=== PATIENT | female | born 1960 | race Caucasian/White ===

== ENCOUNTER → 2016-12-21 | Outpatient (REF) | payer MEDICARE, OTHER ==
[~2016-12-21] MED LIST: /GLIM2TA OR; /ONDA4TA OR; ACET-654 PO; ALPR1TAB3 OR; APIDINJ SC; BABY81CH OR; CARV3.12 PO; CIPR25SS OR; COLA50CA3 PO; DEPA500T OR; FLAG500T OR; FLAG500T PO; FURO20TA2 PO; HYDR7.5T38 PO; INSULANT SC; KEPP1000 PO; MECL12.5 OR; MEXI150C PO; MIDO5TAB PO; NITR0.4S SL; PERC7.5T12 PO; PERC7.5T8 PO; POTA20TA PO; SIMV80TA OR; TORS20TA2 PO; ULTR50TA PO; VICO5TAB OR; VITA500047 PO; ZOCO10TA PO; ZOLO100T OR; januvia PO; nitroglycerin TD; trazadone PO
[2016-12-21 11:19] LABS: BASO % 0.7 % (0.0-1.0); EOS # 0.3 K/mm3 (0.0-0.50); EOS % 4.9 % (0.0-3.0); LARGE UNSTAINED CELL # 0.2 K/mm3 (0.0-0.4); LARGE UNSTAINED CELL % 2.9 % (0.0-4.0); LYMPH # 2.2 K/mm3 (1.5-4.5); LYMPH % 34.8 % (24.0-44.0); MEAN CORPUSCULAR HEMOGLOBIN 28.8 pg (27.0-33.0); MEAN CORPUSCULAR HGB CONC 34.1 g/dl (32.0-36.5); MEAN CORPUSCULAR VOLUME 84.4 fl (80.0-96.0); MONO # 0.5 K/mm3 (0.0-0.8); MONO % 7.7 % (0.0-5.0); NEUTROPHILS # 2.9 K/mm3 (1.8-7.7); PLATELET COUNT, AUTOMATED 320 k/mm3 (150-450); RED CELL DISTRIBUTION WIDTH 12.8 % (11.5-14.5); WHITE BLOOD COUNT 5.9 K/mm3 (4.0-10.0)
[2016-12-21 12:09] LABS: ALBUMIN 3.3 GM/DL (3.2-5.2); ALBUMIN/GLOBULIN RATIO 1.1 (1.00-1.93); BILIRUBIN,TOTAL 0.4 MG/DL (0.2-1.0); CALCIUM LEVEL 8.5 MG/DL (8.5-10.1); CREATININE FOR GFR 1.36 MG/DL (0.55-1.02); GLOMERULAR FILTRATION RATE 42.7 (>51); POTASSIUM SERUM 4.3 MEQ/L (3.5-5.1); TOTAL PROTEIN 6.3 GM/DL (6.4-8.2)
== END ==
LOC: M SFHCLERA 09:37
PROVIDERS: ATTEND Family Medicine
DX: I50.9 Heart failure, unspecified (principal); E11.9 Type 2 diabetes mellitus without complications; E55.9 Vitamin D deficiency, unspecified

== ENCOUNTER → 2017-03-02 | Outpatient (CLI) | payer MEDICARE, OTHER ==
[2017-03-02 11:31] LABS: MEAN CORPUSCULAR HEMOGLOBIN 28.6 pg (27.0-33.0); MEAN CORPUSCULAR HGB CONC 33.3 g/dl (32.0-36.5); MEAN CORPUSCULAR VOLUME 85.8 fl (80.0-96.0); RED CELL DISTRIBUTION WIDTH 13.5 % (11.5-14.5); WHITE BLOOD COUNT 5.6 K/mm3 (4.0-10.0)
[2017-03-02 11:53] LABS: CALCIUM LEVEL 9.6 MG/DL (8.5-10.1); CREATININE FOR GFR 1.41 MG/DL (0.55-1.02); GLOMERULAR FILTRATION RATE 40.9 (>51)
== END ==
LOC: M LRY 09:47
PROVIDERS: ATTEND Internal Medicine Cardiovascular Disease
DX: I42.9 Cardiomyopathy, unspecified (principal)

== ENCOUNTER → 2017-04-02 | Outpatient (REF) | payer MEDICARE, OTHER | LOC: M SFHCLERA 08:35 | PROVIDERS: ATTEND Family Medicine | DX: E11.9 Type 2 diabetes mellitus without complications (principal) ==

== ENCOUNTER → 2017-04-10 | Outpatient (CLI) | payer MEDICARE, BC, OTHER ==
--- NOTE | 2017-04-10 08:40 | REPMRS ---
Patient History The patient states she has not had a clinical breast exam in over a year. Patient is postmenopausal. Family history of colorectal cancer in sister at age 48. Digital Mammo Screening Bilat: April 10, 2017 - Exam #: [id number] Bilateral CC and MLO view(s) were taken. Technologist: Amanda Grayson, Technologist Prior study comparison: March 2009, digital bilateral screening mammo. FINDINGS: There are scattered fibroglandular densities. There has been no change in the appearance of the mammogram from the prior studies. There is a mild amount of residual fibroglandular tissue which is fairly symmetric. There is no interval development of dominant mass, architectural distortion, or clustered microcalcification suggestive of malignancy. ASSESSMENT: BI-RADS/ACR category 1 mammogram. Negative. Recommendation Routine screening mammogram in 1 year (for women over age 40). This mammogram was interpreted with the aid of an FDA-approved computer-aided dectection system. Electronically Signed By: Avni Burgos MD 04/10/17 0823
== END ==
LOC: M RAD 07:34
PROVIDERS: ATTEND Family Medicine
DX: Z12.31 Encounter for screening mammogram for malignant neoplasm of breast (principal); M79.89 Other specified soft tissue disorders; I10 Essential (primary) hypertension

== ENCOUNTER → 2017-04-12 | Outpatient (CLI) | payer MEDICARE ==
--- NOTE | 2017-04-12 12:15 | REP ---
LEFT LOWER EXTREMITY DOPPLER VENOUS ULTRASOUND: 04/12/2017. Comparison: None. Clinical history: Lower extremity swelling, evaluate for DVT. Technique: The deep venous system of the left lower extremity is evaluated with silva scale imaging, compression ultrasound, color imaging and duplex Doppler interrogation. Examination from the groin through the popliteal fossa into the proximal calf. Findings: There is full compressibility from the common femoral vein in the inguinal region through the popliteal vein. Color imaging confirms patency throughout the course of the deep venous system. There is respiratory variation and augmented flow at all levels. Impression: 1. No Doppler venous ultrasound evidence of DVT in the left lower extremity. Signed by Jeremy Castro MD 04/12/2017 12:06 P
== END ==
LOC: M LRY 08:58
PROVIDERS: ATTEND Family Medicine
DX: M79.89 Other specified soft tissue disorders (principal); I10 Essential (primary) hypertension

== ENCOUNTER → 2017-05-17 | Outpatient (CLI) | payer MEDICARE, BC ==
[~2017-05-17] MED LIST changes: -ALPR1TAB3 OR; +ALPR1TAB3 PO; +ATOR80TA59; +CALC1CAP31; +CART180C3; +DIVA500T9; +HYDR50CA2; +INSULADS INJ; +NOVOINJ3; +PANT40TA2; +PRAD75CA3; +PROP1TAB29; +TYLETAB14 PO
--- NOTE | 2017-05-17 16:09 | REP ---
Renal ultrasound: A comparison is 11/09/2015. The kidneys are normal size. The right kidney measures 11.3 x 5.2 x 4.17 cm. Left kidney measures 10.6 x 4.2 x 4.8 cm. There is no hydronephrosis, calculus or mass on the right on the left. There is a cyst at the lower pole left kidney today measuring 9.2 x 6.4 x 8.3 cm. On the prior study. This cyst measured 8.3 x 6.7 x 7.3 cm. This is a a Bosniak type 1 cysts. The bladder is incompletely distended and cannot be further evaluated. Impression: Bosniak type 1 cyst at the lower pole left kidney that has increased in size. Signed by Avni Frazier MD 05/17/2017 04:00 P
== END ==
LOC: M RAD 15:12
PROVIDERS: ATTEND Internal Medicine Nephrology
DX: N28.1 Cyst of kidney, acquired (principal)

== ENCOUNTER 2017-06-26 14:29 | Emergency (ER) | payer MEDICARE, BC, OTHER ==
[~2017-06-26] VITALS: Ht 175.3 cm; Wt 103.6 kg
[~2017-06-26 14:29] MED LIST changes: -ATOR80TA59; -CALC1CAP31; -CART180C3; -DIVA500T9; -HYDR50CA2; -INSULADS INJ; -NOVOINJ3; -PANT40TA2; -PRAD75CA3; -PROP1TAB29; -TYLETAB14 PO
[2017-06-26] MEDS ORDERED: INSULADS INJ (15:11)
[2017-06-26] MEDS ORDERED: PROP1TAB29 (15:14)
[2017-06-26] MEDS ORDERED: DIVA500T9 (15:14)
[2017-06-26] MEDS ORDERED: PANT40TA2 (15:14)
[2017-06-26] MEDS ORDERED: CART180C3 (15:14)
[2017-06-26] MEDS ORDERED: HYDR50CA2 (15:14)
[2017-06-26] MEDS ORDERED: CALC1CAP31 (15:14)
[2017-06-26] MEDS ORDERED: NOVOINJ3 (15:14)
[2017-06-26] MEDS ORDERED: ATOR80TA59 (15:14)
[2017-06-26] MEDS ORDERED: PRAD75CA3 (15:14)
[2017-06-26 17:00] VITALS: BP 122/71
[2017-06-26] MEDS ORDERED: TYLETAB14 PO (17:03)
--- NOTE | 2017-06-26 21:24 | ECGEPIP ---
Stationary ECG Study [facility] - ED Test Date: 2017-06-26 Pat Name: SHAD WASSERMAN Department: Room: - Gender: F Front Clerk: : 1960 Requested By: Paz Brown Order Number: [id number] Reading MD: Paz Brown Measurements Intervals [place] Rate: 69 P: 67 ND: 181 QRS: 5 QRSD: 100 T: 5 QT: 404 QTc: 435 Interpretive Statements SINUS RHYTHM SEPTAL MYOCARDIAL INFARCTION, PROBABLY OLD NSTTW ABNORMALITY DECREASED ECTOPY COMPARED 02/26/14 Electronically Signed On 06-26-2017 21:24:15 EDT by Paz Brown
== END 2017-06-26 17:05 | disposition home or self-care (01) ==
LOC: M ED 14:29
DX: G62.9 Polyneuropathy, unspecified (principal); Z87.891 Personal history of nicotine dependence

== ENCOUNTER → 2017-06-27 | Outpatient (CLI) | payer MEDICARE, BC, OTHER ==
[~2017-06-27] MED LIST changes: +ATOR80TA59; +CALC1CAP31; +CART180C3; +DIVA500T9; +HYDR50CA2; +INSULADS INJ; +NOVOINJ3; +PANT40TA2; +PRAD75CA3; +PROP1TAB29; +TYLETAB14 PO
--- NOTE | 2017-06-27 17:10 | REP ---
CERVICAL SPINE, SEVEN VIEWS: HISTORY: Neck pain. COMPARISON: 06/27/2013 There is no acute fracture or subluxation. The C3-4 through C7-T1 intervertebral discs are decreased in height consistent with disc degeneration. Osteophytes are present on C4-7. There is narrowing of the C3 through 6 neural foramina secondary to uncinate process hypertrophy. IMPRESSION:Degenerative change as described above. Signed by Chaim Badillo MD 06/28/2017 08:19 A
== END ==
LOC: M LRY 16:24
PROVIDERS: ATTEND Family Medicine
DX: M54.2 Cervicalgia (principal)
CPT/HCPCS: 72052; 80053; 85025; 85652; 86140; G0463

== ENCOUNTER → 2017-06-27 | Outpatient (REF) | payer MEDICARE, OTHER ==
[2017-06-27 20:34] LABS: BASO # 0.1 K/mm3 (0.0-0.2); EOS # 0.4 K/mm3 (0.0-0.50); EOS % 4.7 % (0.0-3.0); LARGE UNSTAINED CELL # 0.2 K/mm3 (0.0-0.4); LARGE UNSTAINED CELL % 2.6 % (0.0-4.0); LYMPH # 1.8 K/mm3 (1.5-4.5); LYMPH % 22.1 % (24.0-44.0); MEAN CORPUSCULAR HEMOGLOBIN 28.7 pg (27.0-33.0); MEAN CORPUSCULAR HGB CONC 33.9 g/dl (32.0-36.5); MEAN CORPUSCULAR VOLUME 84.7 fl (80.0-96.0); MONO # 0.5 K/mm3 (0.0-0.8); MONO % 5.5 % (0.0-5.0); NEUTROPHILS # 5.3 K/mm3 (1.8-7.7); NEUTROPHILS % 64.1 % (36.0-66.0); PLATELET COUNT, AUTOMATED 436 k/mm3 (150-450); RED CELL DISTRIBUTION WIDTH 12.4 % (11.5-14.5); WHITE BLOOD COUNT 8.3 K/mm3 (4.0-10.0)
[2017-06-27 21:10] LABS: ALBUMIN 3.2 GM/DL (3.2-5.2); ALBUMIN/GLOBULIN RATIO 0.86 (1.00-1.93); BILIRUBIN,TOTAL 0.4 MG/DL (0.2-1.0); CALCIUM LEVEL 9.3 MG/DL (8.5-10.1); CREATININE FOR GFR 1.09 MG/DL (0.55-1.02); GLOMERULAR FILTRATION RATE 55.1 (>51); POTASSIUM SERUM 5.1 MEQ/L (3.5-5.1); TOTAL PROTEIN 6.9 GM/DL (6.4-8.2)
[2017-06-27 21:20] LABS: ERYTHROCYTE SEDIMENTATION RATE 31 mm/hr (0-30)
== END ==
LOC: M SFHCLERA 16:04
PROVIDERS: ATTEND Family Medicine
DX: M54.2 Cervicalgia (principal); M79.622 Pain in left upper arm; M79.621 Pain in right upper arm

== ENCOUNTER → 2017-07-05 | Outpatient (REF) | payer MEDICARE, OTHER ==
[2017-07-05 13:44] LABS: ALBUMIN 3.1 GM/DL (3.2-5.2); ALBUMIN/GLOBULIN RATIO 0.79 (1.00-1.93); BILIRUBIN,TOTAL 0.4 MG/DL (0.2-1.0); CALCIUM LEVEL 9.4 MG/DL (8.5-10.1); CREATININE FOR GFR 1.33 MG/DL (0.55-1.02); GLOMERULAR FILTRATION RATE 43.6 (>51); POTASSIUM SERUM 4.7 MEQ/L (3.5-5.1)
[2017-07-05 14:00] LABS: BASO % 0.6 % (0.0-1.0); EOS # 0.3 K/mm3 (0.0-0.50); EOS % 3.3 % (0.0-3.0); LARGE UNSTAINED CELL # 0.2 K/mm3 (0.0-0.4); LARGE UNSTAINED CELL % 2.3 % (0.0-4.0); LYMPH # 1.9 K/mm3 (1.5-4.5); LYMPH % 21.8 % (24.0-44.0); MEAN CORPUSCULAR HEMOGLOBIN 28.5 pg (27.0-33.0); MEAN CORPUSCULAR HGB CONC 33.2 g/dl (32.0-36.5); MEAN CORPUSCULAR VOLUME 85.9 fl (80.0-96.0); MONO # 0.4 K/mm3 (0.0-0.8); NEUTROPHILS # 5.7 K/mm3 (1.8-7.7); NEUTROPHILS % 66.9 % (36.0-66.0); PLATELET COUNT, AUTOMATED 447 k/mm3 (150-450); RED CELL DISTRIBUTION WIDTH 12.8 % (11.5-14.5); WHITE BLOOD COUNT 8.5 K/mm3 (4.0-10.0)
[2017-07-05 14:42] LABS: ERYTHROCYTE SEDIMENTATION RATE 42 mm/hr (0-30)
== END ==
LOC: M SFHCLERA 08:36
PROVIDERS: ATTEND Family Medicine
DX: M54.2 Cervicalgia (principal); E11.21 Type 2 diabetes mellitus with diabetic nephropathy; M79.622 Pain in left upper arm; M79.621 Pain in right upper arm

== ENCOUNTER → 2017-09-24 | Outpatient (CLI) | payer MEDICARE, OTHER ==
[2017-09-24 19:41] LABS: THYROXINE (T4) 12.4 UG/DL (4.5-12.0)
== END ==
LOC: M LRY 11:11
PROVIDERS: ATTEND Ophthalmology
DX: M35.00 Sjogren syndrome, unspecified (principal)

== ENCOUNTER → 2017-09-27 | Outpatient (REF) | payer MEDICARE, OTHER | LOC: M SFHCLERA 09:43 | PROVIDERS: ATTEND Family Medicine | DX: E11.21 Type 2 diabetes mellitus with diabetic nephropathy (principal) ==

== ENCOUNTER → 2017-09-27 | Outpatient (CLI) | payer MEDICARE, OTHER ==
[2017-09-27 11:26] LABS: MEAN CORPUSCULAR HEMOGLOBIN 28.2 pg (27.0-33.0); MEAN CORPUSCULAR HGB CONC 32.7 g/dl (32.0-36.5); MEAN CORPUSCULAR VOLUME 86.2 fl (80.0-96.0); PLATELET COUNT, AUTOMATED 377 10^3/uL (150-450); RED CELL DISTRIBUTION WIDTH 14.1 % (11.5-14.5)
[2017-09-27 12:13] LABS: CALCIUM LEVEL 8.8 MG/DL (8.5-10.1); CREATININE FOR GFR 1.18 MG/DL (0.55-1.02); GLOMERULAR FILTRATION RATE 50.1 (>51)
== END ==
LOC: M LRY 09:46
PROVIDERS: ATTEND Internal Medicine Cardiovascular Disease
DX: I42.9 Cardiomyopathy, unspecified (principal); E11.21 Type 2 diabetes mellitus with diabetic nephropathy

== ENCOUNTER → 2017-12-07 | Outpatient (CLI) | payer MEDICARE, OTHER ==
[2017-12-07 11:45] LABS: BASO # 0.1 10^3/uL (0.0-0.2); EOS # 0.3 10^3/uL (0.0-0.50); EOS % 3.7 % (0.0-3.0); HEMATOCRIT 38.9 % (36.0-47.0); HEMOGLOBIN 12.6 g/dl (12.0-16.0); IMMATURE GRANULOCYTE % 0.4 % (0-3.0); LYMPH # 1.6 10^3/uL (1.5-4.5); LYMPH % 21.7 % (24.0-44.0); MEAN CORPUSCULAR HEMOGLOBIN 27.8 pg (27.0-33.0); MEAN CORPUSCULAR HGB CONC 32.4 g/dl (32.0-36.5); MEAN CORPUSCULAR VOLUME 85.9 fl (80.0-96.0); MONO # 0.5 10^3/uL (0.0-0.8); MONO % 6.9 % (0.0-5.0); NEUTROPHILS # 4.8 10^3/uL (1.8-7.7); NEUTROPHILS % 66.3 % (36.0-66.0); PLATELET COUNT, AUTOMATED 336 10^3/uL (150-450); RED BLOOD COUNT 4.53 10^6/uL (4.00-5.40); RED CELL DISTRIBUTION WIDTH 12.3 % (11.5-14.5); WHITE BLOOD COUNT 7.2 10^3/uL (4.0-10.0)
[2017-12-07 12:00] LABS: ANION GAP 4 MEQ/L (8-16); BLOOD UREA NITROGEN 14 MG/DL (7-18); CARBON DIOXIDE LEVEL 33 MEQ/L (21-32); CHLORIDE LEVEL 101 MEQ/L (98-107); CREATININE FOR GFR 1.08 MG/DL (0.55-1.30); GLOMERULAR FILTRATION RATE 55.5 (>51); GLUCOSE, FASTING 224 MG/DL (70-100); POTASSIUM SERUM 4.9 MEQ/L (3.5-5.1); SODIUM LEVEL 138 MEQ/L (136-145)
== END ==
LOC: M LRY 09:36
DX: I50.9 Heart failure, unspecified (principal); I48.91 Unspecified atrial fibrillation
CPT/HCPCS: 80048

== ENCOUNTER → 2018-01-23 | Outpatient (REF) | payer MEDICARE, OTHER ==
[2018-01-23 17:07] LABS: HEMATOCRIT 40.9 % (36.0-47.0); HEMOGLOBIN 13.5 g/dl (12.0-15.5); MEAN CORPUSCULAR VOLUME 84.9 fl (80.0-96.0); PLATELET COUNT, AUTOMATED 311 10^3/uL (150-450); RED BLOOD COUNT 4.82 10^6/uL (4.00-5.40); RED CELL DISTRIBUTION WIDTH 12.9 % (11.5-14.5); WHITE BLOOD COUNT 7.3 10^3/uL (4.0-10.0)
[2018-01-23 19:28] LABS: ANION GAP 7 MEQ/L (8-16); BLOOD UREA NITROGEN 13 MG/DL (7-18); CARBON DIOXIDE LEVEL 29 MEQ/L (21-32); CHLORIDE LEVEL 102 MEQ/L (98-107); CREATININE FOR GFR 1.23 MG/DL (0.55-1.30); GLOMERULAR FILTRATION RATE 47.7 (>51); GLUCOSE, FASTING 339 MG/DL (70-100); SODIUM LEVEL 138 MEQ/L (136-145)
[2018-01-23 19:29] LABS: ESTIMATED AVERAGE GLUCOSE 255 MG/DL (60-110); HEMOGLOBIN A1c 10.5 %
[2018-01-23 19:54] LABS: POTASSIUM SERUM 5.2 MEQ/L (3.5-5.1)
== END ==
LOC: M SFHCLERA 11:38
DX: Z01.818 Encounter for other preprocedural examination (principal); M23.242 Derangement of anterior horn of lateral meniscus due to old tear or injury, left knee; E11.9 Type 2 diabetes mellitus without complications; Z79.4 Long term (current) use of insulin
CPT/HCPCS: 83036

== ENCOUNTER 2018-01-28 11:57 | Day surgery (SDC) | payer MEDICARE, BC, OTHER ==
[2018-01-28] MEDS ORDERED: NS 1,000 ML IV (12:00)
[2018-01-28] MEDS: LR 1,000 ML IV (12:40)
[2018-01-28 12:48] LABS: BEDSIDE GLUCOSE 82 MG/DL (70-105)
[2018-01-28] MEDS: METOPROLOL TART 50 MG TAB PO (12:50)
[2018-01-28] MEDS ORDERED: fentaNYL 100 MCG/2 ML INJECTION (J3010) As Ordered (12:57)
[2018-01-28] MEDS ORDERED: MIDAZOLAM INJ 2 MG/2 ML VIAL (J2250) As Ordered (12:57)
[2018-01-28] MEDS ORDERED: ONDANSETRON 4MG/2ML VIAL (J2405) As Ordered (12:57)
[2018-01-28] MEDS ORDERED: PROPOFOL 500 MG/50 ML VIAL As Ordered (12:57)
[2018-01-28] MEDS ORDERED: LIDOCAINE 2% INJ 100 MG/5 ML SDV (FOR ANES.) As Ordered (12:57)
[2018-01-28] MEDS: TRIAMCINOLONE ACETONIDE SUSP 40 MG/ML VIAL (J3301) As Ordered (13:57)
[2018-01-28] MEDS: ROPIvacaine 0.5% 30 ML INJECTION (J2795 PER 1MG) As Ordered (13:57)
[2018-01-28] MEDS ORDERED: LR 1,000 ML IV ×2 (14:15→14:30)
[2018-01-28] MEDS ORDERED: MEPERIDINE INJ 25 MG/ML VIAL (J2175) IV (14:15)
[2018-01-28] MEDS ORDERED: fentaNYL 100 MCG/2 ML INJECTION (J3010) IV (14:15)
[2018-01-28] MEDS ORDERED: ONDANSETRON 4MG/2ML VIAL (J2405) IV (14:15)
[2018-01-28] MEDS ORDERED: METOCLOPRAMIDE INJ 10MG/2ML VIAL (J2765) IV (14:15)
[2018-01-28] MEDS ORDERED: ACETAMINOPH W/CODEINE #3 TAB UD PO (14:30)
[2018-01-28] MEDS: PERCOCET 5MG/325MG TAB PO ×2 (14:33→15:10)
[2018-01-28 14:34] LABS: BEDSIDE GLUCOSE 60 MG/DL (70-105)
[2018-01-28] MEDS ORDERED: METOCLOPRAMIDE INJ 10MG/2ML VIAL (J2765) As Ordered (14:49)
[2018-01-28] MEDS ORDERED: dexameTHASONE 4 MG/ML 1ML VIAL (J1100) As Ordered (14:49)
[2018-01-28 14:56] LABS: BEDSIDE GLUCOSE 84 MG/DL (70-105)
== END 2018-01-28 15:46 | disposition home or self-care (01) ==
LOC: M SDC 11:57
DX: M23.242 Derangement of anterior horn of lateral meniscus due to old tear or injury, left knee (principal); M17.12 Unilateral primary osteoarthritis, left knee; R22.42 Localized swelling, mass and lump, left lower limb; E11.22 Type 2 diabetes mellitus with diabetic chronic kidney disease; Z79.4 Long term (current) use of insulin; N18.3 Chronic kidney disease, stage 3 (moderate); I50.32 Chronic diastolic (congestive) heart failure; I48.0 Paroxysmal atrial fibrillation; N25.81 Secondary hyperparathyroidism of renal origin; Z79.899 Other long term (current) drug therapy; E78.00 Pure hypercholesterolemia, unspecified; F32.9 Major depressive disorder, single episode, unspecified; F41.9 Anxiety disorder, unspecified
CPT/HCPCS: 29880

== ENCOUNTER → 2018-02-15 | Outpatient (CLI) | payer MEDICARE, BC, OTHER ==
[~2018-02-15] MED LIST changes: -/GLIM2TA OR; -/ONDA4TA OR; -ACET-654 PO; -ALPR1TAB3 PO; -APIDINJ SC; -ATOR80TA59; -BABY81CH OR; -CALC1CAP31; -CART180C3; -CARV3.12 PO; -CIPR25SS OR; -COLA50CA3 PO; -DEPA500T OR; -DIVA500T9; -FLAG500T OR; -FLAG500T PO; -FURO20TA2 PO; -HYDR50CA2; -HYDR7.5T38 PO; -INSULADS INJ; -INSULANT SC; +ISOVUE-370 76% 100ML VIAL (Q9967) As Ordered; -KEPP1000 PO; -MECL12.5 OR; -MEXI150C PO; -MIDO5TAB PO; -NITR0.4S SL; -NOVOINJ3; -PANT40TA2; -PERC7.5T12 PO; -PERC7.5T8 PO; -POTA20TA PO; -PRAD75CA3; -PROP1TAB29; -SIMV80TA OR; -TORS20TA2 PO; -TYLETAB14 PO; -ULTR50TA PO; -VICO5TAB OR; -VITA500047 PO; -ZOCO10TA PO; -ZOLO100T OR; -januvia PO; -nitroglycerin TD; -trazadone PO
== END ==
LOC: M RAD 13:12
DX: R22.9 Localized swelling, mass and lump, unspecified (principal)
CPT/HCPCS: Q9967

== ENCOUNTER → 2018-03-12 | Outpatient (CLI) | payer MEDICARE, BC, OTHER ==
[2018-03-12 17:03] LABS: THYROXINE (T4) 11.1 UG/DL (4.5-12.0)
== END ==
LOC: M LRY 12:49
DX: E04.0 Nontoxic diffuse goiter (principal)
CPT/HCPCS: 84443

== ENCOUNTER → 2018-05-29 | Outpatient (CLI) | payer MEDICARE, BC, OTHER | LOC: M RAD 14:11 | DX: N28.1 Cyst of kidney, acquired (principal) | CPT/HCPCS: 76775 ==

== ENCOUNTER → 2018-07-17 | Outpatient (REF) | payer MEDICARE, BC, OTHER | LOC: M LAB REF 13:13 | DX: N39.0 Urinary tract infection, site not specified (principal) | CPT/HCPCS: 87086 ==

== ENCOUNTER 2018-08-17 01:38 | Observation (INO) | payer MEDICARE, BC, OTHER ==
[2018-08-17 05:09] LABS: BASO # 0.1 10^3/uL (0.0-0.2); BASO % 1.1 % (0.0-1.0); EOS # 0.3 10^3/uL (0.0-0.50); EOS % 3.3 % (0.0-3.0); HEMATOCRIT 35.5 % (36.0-47.0); HEMOGLOBIN 11.7 g/dl (12.0-15.5); IMMATURE GRANULOCYTE % 1.1 % (0-3.0); LYMPH # 1.7 10^3/uL (1.5-4.5); LYMPH % 17.5 % (24.0-44.0); MEAN CORPUSCULAR HEMOGLOBIN 29.8 pg (27.0-33.0); MEAN CORPUSCULAR VOLUME 90.3 fl (80.0-96.0); MONO # 0.7 10^3/uL (0.0-0.8); MONO % 7.3 % (0.0-5.0); NEUTROPHILS # 6.8 10^3/uL (1.8-7.7); NEUTROPHILS % 69.7 % (36.0-66.0); PLATELET COUNT, AUTOMATED 515 10^3/uL (150-450); RED BLOOD COUNT 3.93 10^6/uL (4.00-5.40); RED CELL DISTRIBUTION WIDTH 14.3 % (11.5-14.5); WHITE BLOOD COUNT 9.8 10^3/uL (4.0-10.0)
[2018-08-17 05:23] LABS: ANION GAP 9 MEQ/L (8-16); BLOOD UREA NITROGEN 15 MG/DL (7-18); CALCIUM LEVEL 8.8 MG/DL (8.5-10.1); CARBON DIOXIDE LEVEL 28 MEQ/L (21-32); CHLORIDE LEVEL 97 MEQ/L (98-107); CREATININE FOR GFR 1.01 MG/DL (0.55-1.30); GLOMERULAR FILTRATION RATE 59.7 (>51); GLUCOSE, FASTING 291 MG/DL (70-100); POTASSIUM SERUM 4.4 MEQ/L (3.5-5.1); SODIUM LEVEL 134 MEQ/L (136-145); VALPROIC ACID (DEPAKOTE) < 3.0 UG/ML (50.0-100.0)
[2018-08-17] MEDS ORDERED: GLUCAGON FOR INJ 1 MG VIAL (J1610) SC ×2 (06:00)
[2018-08-17] MEDS ORDERED: GLUCOSE 4 GM CHEW TABLET PO ×2 (06:00)
[2018-08-17] MEDS ORDERED: DEXTROSE 50% 50 ML SYRINGE IV ×2 (06:00)
[2018-08-17] MEDS: MORPHINE 4 MG/ML 1ML VIAL/SYRINGE (J2270) IV ×2 (06:20)
[2018-08-17] MEDS: ONDANSETRON 4 MG TAB (S0181) PO ×2 (06:20)
[2018-08-17 06:33] LABS: ESTIMATED AVERAGE GLUCOSE 246 MG/DL (60-110); HEMOGLOBIN A1c 10.2 %
[2018-08-17] MEDS: ACETAMINOPHEN TAB 650MG DOSE (2X325MG) PO ×2 (07:27)
[2018-08-17] MEDS: HumaLOG INSULIN (NovoLOG) PER UNIT SC ×8 (07:30→21:00)
[2018-08-17] MEDS: DABIGATRAN ETEXILATE 75 MG CAP (PRADAXA) PO ×4 (09:53→20:44)
[2018-08-17] MEDS: POTASSIUM CHLORIDE 10 MEQ SR TABLET PO ×2 (09:55)
[2018-08-17] MEDS: AMIODARONE 200 MG TAB (PACERONE) PO ×2 (09:55)
[2018-08-17] MEDS: METOPROLOL SUCC (TopROL XL) 50MG **XL** TAB PO ×2 (09:55)
[2018-08-17] MEDS: DULoxetine 30 MG CAP (CYMBALTA) PO ×4 (09:55→20:44)
[2018-08-17] MEDS: ASPIRIN 81 MG ENTERIC TAB PO ×2 (09:56)
[2018-08-17] MEDS: PANTOPRAZOLE 40MG TAB (PROTONIX) PO ×2 (09:56)
[2018-08-17] MEDS: diltiaZEM **CD** 180 MG CAP PO ×2 (09:56)
[2018-08-17] MEDS: TORSEMIDE 20 MG TAB PO ×2 (09:56)
[2018-08-17] MEDS: NORCO, ANEXSIA 5/325MG TABLET (HYDROcodone/ACETAMINOPHEN) PO ×6 (09:57→20:45)
[2018-08-17] MEDS: ALPRAZolam 0.25 MG TAB PO ×2 (09:57)
[2018-08-17] MEDS: LEVEMIR (INSULIN DETEMIR) 1 UNITS/0.01ML SC ×4 (09:58→21:25)
[2018-08-17 16:28] LABS: BEDSIDE GLUCOSE 103 MG/DL (70-105)
[2018-08-17] MEDS: CYCLOBENZAPRINE 5MG TABLET PO ×2 (18:55)
[2018-08-17] MEDS: traZODone 50 MG TAB PO ×2 (20:44)
[2018-08-17] MEDS: ATORVASTATIN 20 MG TAB PO ×2 (20:44)
[2018-08-18 03:48] LABS: BEDSIDE GLUCOSE 49 MG/DL (70-105)
[2018-08-18] MEDS: NORCO, ANEXSIA 5/325MG TABLET (HYDROcodone/ACETAMINOPHEN) PO ×6 (03:51→21:04)
[2018-08-18 04:10] LABS: BEDSIDE GLUCOSE 71 MG/DL (70-105)
[2018-08-18] MEDS: DEXTROSE 50% 50 ML SYRINGE IV ×2 (04:20)
[2018-08-18 04:26] LABS: BASO # 0.1 10^3/uL (0.0-0.2); EOS # 0.4 10^3/uL (0.0-0.50); EOS % 4.4 % (0.0-3.0); HEMATOCRIT 33.9 % (36.0-47.0); HEMOGLOBIN 10.9 g/dl (12.0-15.5); IMMATURE GRANULOCYTE % 1.2 % (0-3.0); LYMPH # 2.2 10^3/uL (1.5-4.5); LYMPH % 26.5 % (24.0-44.0); MEAN CORPUSCULAR HEMOGLOBIN 28.9 pg (27.0-33.0); MEAN CORPUSCULAR HGB CONC 32.2 g/dl (32.0-36.5); MEAN CORPUSCULAR VOLUME 89.9 fl (80.0-96.0); MONO # 0.7 10^3/uL (0.0-0.8); MONO % 8.5 % (0.0-5.0); NEUTROPHILS # 4.8 10^3/uL (1.8-7.7); NEUTROPHILS % 58.4 % (36.0-66.0); PLATELET COUNT, AUTOMATED 508 10^3/uL (150-450); RED BLOOD COUNT 3.77 10^6/uL (4.00-5.40); RED CELL DISTRIBUTION WIDTH 14.5 % (11.5-14.5); WHITE BLOOD COUNT 8.2 10^3/uL (4.0-10.0)
[2018-08-18 04:58] LABS: ANION GAP 7 MEQ/L (8-16); BEDSIDE GLUCOSE CONFIRMATION 70 MG/DL (LESS THAN 200); BLOOD UREA NITROGEN 18 MG/DL (7-18); CALCIUM LEVEL 8.3 MG/DL (8.5-10.1); CARBON DIOXIDE LEVEL 36 MEQ/L (21-32); CHLORIDE LEVEL 97 MEQ/L (98-107); CREATININE FOR GFR 1.29 MG/DL (0.55-1.30); GLUCOSE, FASTING 70 MG/DL (70-100); POTASSIUM SERUM 3.4 MEQ/L (3.5-5.1); SODIUM LEVEL 140 MEQ/L (136-145)
[2018-08-18] MEDS: HumaLOG INSULIN (NovoLOG) PER UNIT SC ×8 (07:30→21:00)
[2018-08-18] MEDS: diltiaZEM **CD** 180 MG CAP PO ×2 (09:00)
[2018-08-18] MEDS: LEVEMIR (INSULIN DETEMIR) 1 UNITS/0.01ML SC ×4 (09:00→21:05)
[2018-08-18] MEDS: POTASSIUM CHLORIDE 10 MEQ SR TABLET PO ×4 (09:09→11:28)
[2018-08-18] MEDS: DABIGATRAN ETEXILATE 75 MG CAP (PRADAXA) PO ×4 (09:09→21:03)
[2018-08-18] MEDS: TORSEMIDE 20 MG TAB PO ×2 (09:11)
[2018-08-18] MEDS: ASPIRIN 81 MG ENTERIC TAB PO ×2 (09:11)
[2018-08-18] MEDS: METOPROLOL SUCC (TopROL XL) 50MG **XL** TAB PO ×2 (09:11)
[2018-08-18] MEDS: PANTOPRAZOLE 40MG TAB (PROTONIX) PO ×2 (09:11)
[2018-08-18] MEDS: ALPRAZolam 0.25 MG TAB PO ×2 (09:12)
[2018-08-18] MEDS: AMIODARONE 200 MG TAB (PACERONE) PO ×2 (09:12)
[2018-08-18] MEDS: DULoxetine 30 MG CAP (CYMBALTA) PO ×4 (09:12→21:04)
[2018-08-18 16:43] LABS: BEDSIDE GLUCOSE 177 MG/DL (70-105)
[2018-08-18 16:44] LABS: BEDSIDE GLUCOSE 133 MG/DL (70-105)
[2018-08-18 16:44] LABS: BEDSIDE GLUCOSE 89 MG/DL (70-105)
[2018-08-18 16:44] LABS: BEDSIDE GLUCOSE 259 MG/DL (70-105)
[2018-08-18 16:44] LABS: BEDSIDE GLUCOSE 97 MG/DL (70-105)
[2018-08-18 16:44] LABS: BEDSIDE GLUCOSE 129 MG/DL (70-105)
[2018-08-18 16:44] LABS: BEDSIDE GLUCOSE 135 MG/DL (70-105)
[2018-08-18] MEDS: CYCLOBENZAPRINE 5MG TABLET PO ×2 (16:48)
[2018-08-18 20:14] LABS: BEDSIDE GLUCOSE 180 MG/DL (70-105)
[2018-08-18] MEDS: ATORVASTATIN 20 MG TAB PO ×2 (21:03)
[2018-08-18] MEDS: OMEGA-3 1000MG CAPSULE PO ×2 (21:03)
[2018-08-18] MEDS: traZODone 50 MG TAB PO ×2 (21:04)
[2018-08-19] MEDS: NORCO, ANEXSIA 5/325MG TABLET (HYDROcodone/ACETAMINOPHEN) PO ×6 (01:58→12:49)
[2018-08-19 06:19] LABS: BEDSIDE GLUCOSE 40 MG/DL (70-105)
[2018-08-19 06:20] LABS: BEDSIDE GLUCOSE 50 MG/DL (70-105)
[2018-08-19 07:01] LABS: BEDSIDE GLUCOSE 79 MG/DL (70-105)
[2018-08-19] MEDS: HumaLOG INSULIN (NovoLOG) PER UNIT SC ×4 (07:30→12:11)
[2018-08-19] MEDS: LEVEMIR (INSULIN DETEMIR) 1 UNITS/0.01ML SC ×2 (08:43)
[2018-08-19] MEDS: DULoxetine 30 MG CAP (CYMBALTA) PO ×2 (08:43)
[2018-08-19] MEDS: OMEGA-3 1000MG CAPSULE PO ×2 (08:43)
[2018-08-19 08:44] LABS: BEDSIDE GLUCOSE 82 MG/DL (70-105)
[2018-08-19] MEDS: POTASSIUM CHLORIDE 10 MEQ SR TABLET PO ×2 (08:44)
[2018-08-19] MEDS: DABIGATRAN ETEXILATE 75 MG CAP (PRADAXA) PO ×2 (08:44)
[2018-08-19] MEDS: ALPRAZolam 0.25 MG TAB PO ×2 (08:44)
[2018-08-19] MEDS: ASPIRIN 81 MG ENTERIC TAB PO ×2 (08:44)
[2018-08-19] MEDS: VITAMIN D 1,000 INTERNATIONAL UNITS TABLET PO ×2 (08:44)
[2018-08-19] MEDS: PANTOPRAZOLE 40MG TAB (PROTONIX) PO ×2 (08:44)
[2018-08-19] MEDS: METOPROLOL SUCC (TopROL XL) 50MG **XL** TAB PO ×2 (08:45)
[2018-08-19] MEDS: AMIODARONE 200 MG TAB (PACERONE) PO ×2 (08:45)
[2018-08-19] MEDS: diltiaZEM **CD** 180 MG CAP PO ×2 (08:45)
[2018-08-19] MEDS: TORSEMIDE 20 MG TAB PO ×2 (08:46)
[2018-08-19] MEDS ORDERED: LEVEMIR (INSULIN DETEMIR) 1 UNITS/0.01ML SC ×2 (09:00)
[2018-08-19 11:18] LABS: BEDSIDE GLUCOSE 123 MG/DL (70-105)
[2018-08-19] MEDS: CYCLOBENZAPRINE 5MG TABLET PO ×2 (12:11)
== END 2018-08-19 16:00 ==
LOC: M ED 01:38 → M ED INP 06:11 → M MS5PR 06:45
DX: M25.552 Pain in left hip (principal); M25.532 Pain in left wrist; Z47.89 Encounter for other orthopedic aftercare; E11.9 Type 2 diabetes mellitus without complications; I10 Essential (primary) hypertension; M79.7 Fibromyalgia; F32.9 Major depressive disorder, single episode, unspecified; F41.9 Anxiety disorder, unspecified; I25.10 Atherosclerotic heart disease of native coronary artery without angina pectoris; Z98.61 Coronary angioplasty status; I48.91 Unspecified atrial fibrillation; Z95.0 Presence of cardiac pacemaker; Z79.01 Long term (current) use of anticoagulants; E78.5 Hyperlipidemia, unspecified; Z79.899 Other long term (current) drug therapy
CPT/HCPCS: J2270

== ENCOUNTER 2018-08-19 16:05 | Inpatient (IN) | payer MEDICARE, BC, OTHER ==
[2018-08-19 16:41] LABS: BEDSIDE GLUCOSE 205 MG/DL (70-105)
[2018-08-19] MEDS ORDERED: GLUCOSE 4 GM CHEW TABLET PO (17:00)
[2018-08-19] MEDS ORDERED: DEXTROSE 50% 50 ML SYRINGE IV (17:00)
[2018-08-19] MEDS ORDERED: GLUCAGON FOR INJ 1 MG VIAL (J1610) SC (17:00)
[2018-08-19] MEDS ORDERED: NITROGLYCERIN 0.4 MG SUBL TABLET SL (17:00)
[2018-08-19] MEDS: HumaLOG INSULIN (NovoLOG) PER UNIT SC (18:31)
[2018-08-19] MEDS ORDERED: LEVEMIR (INSULIN DETEMIR) 1 UNITS/0.01ML SC (21:00)
[2018-08-19] MEDS: tiZANidine 4 MG TAB PO (21:15)
[2018-08-19] MEDS: DULoxetine 30 MG CAP (CYMBALTA) PO (21:15)
[2018-08-19] MEDS: OMEGA-3 1000MG CAPSULE PO (21:15)
[2018-08-19] MEDS: NORCO, ANEXSIA 5/325MG TABLET (HYDROcodone/ACETAMINOPHEN) PO (21:17)
[2018-08-19] MEDS: traZODone 50 MG TAB PO (21:17)
[2018-08-19] MEDS: ATORVASTATIN 20 MG TAB PO (21:18)
[2018-08-19] MEDS: DABIGATRAN ETEXILATE 75 MG CAP (PRADAXA) PO (21:18)
[2018-08-19] MEDS: LEVEMIR (INSULIN DETEMIR) 1 UNITS/0.01ML SC (21:19)
[2018-08-19 23:55] LABS: BEDSIDE GLUCOSE 150 MG/DL (70-105)
[2018-08-20] MEDS: NORCO, ANEXSIA 5/325MG TABLET (HYDROcodone/ACETAMINOPHEN) PO ×4 (05:02→22:00)
[2018-08-20] MEDS: tiZANidine 4 MG TAB PO ×3 (05:03→22:00)
[2018-08-20 07:18] LABS: BASO # 0.1 10^3/uL (0.0-0.2); BASO % 1.1 % (0.0-1.0); EOS # 0.3 10^3/uL (0.0-0.50); EOS % 3.3 % (0.0-3.0); HEMOGLOBIN 11.4 g/dl (12.0-15.5); IMMATURE GRANULOCYTE % 1.6 % (0-3.0); LYMPH # 2.3 10^3/uL (1.5-4.5); LYMPH % 25.7 % (24.0-44.0); MEAN CORPUSCULAR HEMOGLOBIN 29.5 pg (27.0-33.0); MEAN CORPUSCULAR HGB CONC 32.6 g/dl (32.0-36.5); MEAN CORPUSCULAR VOLUME 90.7 fl (80.0-96.0); MONO # 0.7 10^3/uL (0.0-0.8); MONO % 7.9 % (0.0-5.0); NEUTROPHILS # 5.5 10^3/uL (1.8-7.7); NEUTROPHILS % 60.4 % (36.0-66.0); PLATELET COUNT, AUTOMATED 565 10^3/uL (150-450); RED BLOOD COUNT 3.86 10^6/uL (4.00-5.40); RED CELL DISTRIBUTION WIDTH 14.6 % (11.5-14.5); WHITE BLOOD COUNT 9.1 10^3/uL (4.0-10.0)
[2018-08-20 07:47] LABS: ALBUMIN 2.5 GM/DL (3.2-5.2); ALBUMIN/GLOBULIN RATIO 0.74 (1.00-1.93); ALKALINE PHOSPHATASE 288 U/L (45-117); ALT/SGPT 45 U/L (12-78); ANION GAP 5 MEQ/L (8-16); AST/SGOT 29 U/L (7-37); BILIRUBIN,TOTAL 0.5 MG/DL (0.2-1.0); BLOOD UREA NITROGEN 19 MG/DL (7-18); CALCIUM LEVEL 8.8 MG/DL (8.5-10.1); CARBON DIOXIDE LEVEL 37 MEQ/L (21-32); CHLORIDE LEVEL 97 MEQ/L (98-107); CREATININE FOR GFR 1.52 MG/DL (0.55-1.30); GLOMERULAR FILTRATION RATE 37.3 (>51); GLUCOSE, FASTING 52 MG/DL (70-100); POTASSIUM SERUM 3.6 MEQ/L (3.5-5.1); SODIUM LEVEL 139 MEQ/L (136-145); TOTAL PROTEIN 5.9 GM/DL (6.4-8.2)
[2018-08-20] MEDS: HumaLOG INSULIN (NovoLOG) PER UNIT SC ×3 (08:42→17:41)
[2018-08-20] MEDS: OMEGA-3 1000MG CAPSULE PO ×2 (08:43→22:01)
[2018-08-20] MEDS: CALCITRIOL 0.25 MCG CAP (S0169) PO (08:43)
[2018-08-20] MEDS: ASPIRIN 81 MG ENTERIC TAB PO (08:43)
[2018-08-20] MEDS: DABIGATRAN ETEXILATE 75 MG CAP (PRADAXA) PO ×2 (08:44→21:59)
[2018-08-20] MEDS: PANTOPRAZOLE 40MG TAB (PROTONIX) PO (08:44)
[2018-08-20] MEDS: DULoxetine 30 MG CAP (CYMBALTA) PO ×2 (08:44→22:01)
[2018-08-20] MEDS: VITAMIN D 1,000 INTERNATIONAL UNITS TABLET PO (08:44)
[2018-08-20] MEDS: AMIODARONE 200 MG TAB (PACERONE) PO (08:45)
[2018-08-20] MEDS: diltiaZEM **CD** 180 MG CAP PO (08:45)
[2018-08-20] MEDS: TORSEMIDE 20 MG TAB PO (08:45)
[2018-08-20] MEDS: POTASSIUM CHLORIDE 10 MEQ SR TABLET PO (08:45)
[2018-08-20] MEDS: ALPRAZolam 0.25 MG TAB PO (08:45)
[2018-08-20] MEDS: METOPROLOL SUCC (TopROL XL) 50MG **XL** TAB PO (08:46)
[2018-08-20] MEDS ORDERED: LEVEMIR (INSULIN DETEMIR) 1 UNITS/0.01ML SC (09:00)
[2018-08-20 20:16] LABS: BEDSIDE GLUCOSE 259 MG/DL (70-105)
[2018-08-20 20:16] LABS: BEDSIDE GLUCOSE 274 MG/DL (70-105)
[2018-08-20 20:16] LABS: BEDSIDE GLUCOSE 172 MG/DL (70-105)
[2018-08-20] MEDS: traZODone 50 MG TAB PO (22:01)
[2018-08-20] MEDS: ATORVASTATIN 20 MG TAB PO (22:01)
[2018-08-20] MEDS: LEVEMIR (INSULIN DETEMIR) 1 UNITS/0.01ML SC (22:02)
[2018-08-21] MEDS: tiZANidine 4 MG TAB PO ×3 (05:53→22:07)
[2018-08-21] MEDS: DABIGATRAN ETEXILATE 75 MG CAP (PRADAXA) PO ×2 (07:55→20:32)
[2018-08-21] MEDS: TORSEMIDE 20 MG TAB PO (07:55)
[2018-08-21] MEDS: CALCITRIOL 0.25 MCG CAP (S0169) PO (07:55)
[2018-08-21] MEDS: HumaLOG INSULIN (NovoLOG) PER UNIT SC ×3 (07:55→17:21)
[2018-08-21] MEDS: OMEGA-3 1000MG CAPSULE PO ×2 (07:55→20:33)
[2018-08-21] MEDS: ASPIRIN 81 MG ENTERIC TAB PO (07:56)
[2018-08-21] MEDS: METOPROLOL SUCC (TopROL XL) 50MG **XL** TAB PO (07:56)
[2018-08-21] MEDS: VITAMIN D 1,000 INTERNATIONAL UNITS TABLET PO (07:56)
[2018-08-21] MEDS: DULoxetine 30 MG CAP (CYMBALTA) PO ×2 (07:56→20:32)
[2018-08-21] MEDS: PANTOPRAZOLE 40MG TAB (PROTONIX) PO (07:56)
[2018-08-21] MEDS: diltiaZEM **CD** 180 MG CAP PO (07:57)
[2018-08-21] MEDS: ALPRAZolam 0.25 MG TAB PO (07:57)
[2018-08-21] MEDS: POTASSIUM CHLORIDE 10 MEQ SR TABLET PO (07:57)
[2018-08-21] MEDS: AMIODARONE 200 MG TAB (PACERONE) PO (07:57)
[2018-08-21] MEDS: NORCO, ANEXSIA 5/325MG TABLET (HYDROcodone/ACETAMINOPHEN) PO ×3 (08:04→20:33)
[2018-08-21 14:08] LABS: BEDSIDE GLUCOSE 191 MG/DL (70-105)
[2018-08-21 14:08] LABS: BEDSIDE GLUCOSE 219 MG/DL (70-105)
[2018-08-21 15:08] LABS: APPEARANCE, URINE HAZY (CLEAR); BACTERIA, URINE AUTO 1+ (NEGATIVE); BILIRUBIN, URINE AUTO NEGATIVE (NEGATIVE); BLOOD, URINE BLOOD NEGATIVE (NEGATIVE); COLOR, URINE YELLOW (YELLOW); GLUCOSE, URINE (UA) AUTO NEGATIVE (NEGATIVE); KETONE, URINE AUTO NEGATIVE (NEGATIVE); LEUKOCYTE ESTERASE, URINE AUTO 3+ (NEGATIVE); NITRITE, URINE AUTO NEGATIVE (NEGATIVE); PROTEIN, URINE AUTO NEGATIVE (NEGATIVE); RBC, URINE AUTO 0 /HPF (0-3); SPECIFIC GRAVITY URINE AUTO 1.011 (1.002-1.035); SQUAMOUS EPITHELIAL CELL UR AU 0 /HPF (0-6); WBC, URINE AUTO 34 /HPF (0-3)
[2018-08-21 16:48] LABS: BEDSIDE GLUCOSE 297 MG/DL (70-105)
[2018-08-21 19:36] LABS: BEDSIDE GLUCOSE 333 MG/DL (70-105)
[2018-08-21] MEDS: ATORVASTATIN 20 MG TAB PO (20:32)
[2018-08-21] MEDS: traZODone 50 MG TAB PO (20:33)
[2018-08-21] MEDS: LEVEMIR (INSULIN DETEMIR) 1 UNITS/0.01ML SC (20:34)
[2018-08-22] MEDS: tiZANidine 4 MG TAB PO ×3 (05:00→21:28)
[2018-08-22 06:47] LABS: BASO # 0.1 10^3/uL (0.0-0.2); BASO % 1.3 % (0.0-1.0); EOS # 0.3 10^3/uL (0.0-0.50); EOS % 3.9 % (0.0-3.0); HEMATOCRIT 32.5 % (36.0-47.0); HEMOGLOBIN 10.6 g/dl (12.0-15.5); LYMPH # 1.9 10^3/uL (1.5-4.5); LYMPH % 23.5 % (24.0-44.0); MEAN CORPUSCULAR HEMOGLOBIN 28.9 pg (27.0-33.0); MEAN CORPUSCULAR HGB CONC 32.6 g/dl (32.0-36.5); MEAN CORPUSCULAR VOLUME 88.6 fl (80.0-96.0); MONO # 0.6 10^3/uL (0.0-0.8); MONO % 7.7 % (0.0-5.0); NEUTROPHILS % 62.6 % (36.0-66.0); PLATELET COUNT, AUTOMATED 554 10^3/uL (150-450); RED BLOOD COUNT 3.67 10^6/uL (4.00-5.40); RED CELL DISTRIBUTION WIDTH 14.3 % (11.5-14.5); WHITE BLOOD COUNT 7.9 10^3/uL (4.0-10.0)
[2018-08-22 07:08] LABS: ANION GAP 8 MEQ/L (8-16); BLOOD UREA NITROGEN 21 MG/DL (7-18); CALCIUM LEVEL 8.8 MG/DL (8.5-10.1); CARBON DIOXIDE LEVEL 35 MEQ/L (21-32); CHLORIDE LEVEL 96 MEQ/L (98-107); CREATININE FOR GFR 1.48 MG/DL (0.55-1.30); GLOMERULAR FILTRATION RATE 38.4 (>51); GLUCOSE, FASTING 142 MG/DL (70-100); POTASSIUM SERUM 3.7 MEQ/L (3.5-5.1); SODIUM LEVEL 139 MEQ/L (136-145)
[2018-08-22] MEDS: HumaLOG INSULIN (NovoLOG) PER UNIT SC ×3 (07:56→17:45)
[2018-08-22] MEDS: TORSEMIDE 20 MG TAB PO (09:17)
[2018-08-22] MEDS: OMEGA-3 1000MG CAPSULE PO ×2 (09:17→21:28)
[2018-08-22] MEDS: DABIGATRAN ETEXILATE 75 MG CAP (PRADAXA) PO ×2 (09:17→21:29)
[2018-08-22] MEDS: diltiaZEM **CD** 180 MG CAP PO (09:17)
[2018-08-22] MEDS: ALPRAZolam 0.25 MG TAB PO (09:17)
[2018-08-22] MEDS: VITAMIN D 1,000 INTERNATIONAL UNITS TABLET PO (09:17)
[2018-08-22] MEDS: CALCITRIOL 0.25 MCG CAP (S0169) PO (09:17)
[2018-08-22] MEDS: POTASSIUM CHLORIDE 10 MEQ SR TABLET PO (09:18)
[2018-08-22] MEDS: PANTOPRAZOLE 40MG TAB (PROTONIX) PO (09:18)
[2018-08-22] MEDS: AMIODARONE 200 MG TAB (PACERONE) PO (09:18)
[2018-08-22] MEDS: DULoxetine 30 MG CAP (CYMBALTA) PO ×2 (09:18→21:28)
[2018-08-22] MEDS: ASPIRIN 81 MG ENTERIC TAB PO (09:18)
[2018-08-22] MEDS: METOPROLOL SUCC (TopROL XL) 50MG **XL** TAB PO (09:18)
[2018-08-22] MEDS: NORCO, ANEXSIA 5/325MG TABLET (HYDROcodone/ACETAMINOPHEN) PO ×2 (09:19→21:32)
[2018-08-22 11:57] LABS: BEDSIDE GLUCOSE 188 MG/DL (70-105)
[2018-08-22 16:42] LABS: BEDSIDE GLUCOSE 214 MG/DL (70-105)
[2018-08-22] MEDS: NovoLOG MIX 70/30 PER UNIT SC (18:14)
[2018-08-22 20:26] LABS: BEDSIDE GLUCOSE 150 MG/DL (70-105)
[2018-08-22] MEDS: traZODone 50 MG TAB PO (21:28)
[2018-08-22] MEDS: ATORVASTATIN 20 MG TAB PO (21:29)
[2018-08-22] MEDS: LEVEMIR (INSULIN DETEMIR) 1 UNITS/0.01ML SC (21:29)
[2018-08-23 05:37] LABS: BEDSIDE GLUCOSE 144 MG/DL (70-105)
[2018-08-23] MEDS: tiZANidine 4 MG TAB PO (05:54)
[2018-08-23] MEDS: NORCO, ANEXSIA 5/325MG TABLET (HYDROcodone/ACETAMINOPHEN) PO (08:48)
[2018-08-23] MEDS: ALPRAZolam 0.25 MG TAB PO (08:48)
[2018-08-23] MEDS: DABIGATRAN ETEXILATE 75 MG CAP (PRADAXA) PO (08:48)
[2018-08-23] MEDS: OMEGA-3 1000MG CAPSULE PO (08:48)
[2018-08-23] MEDS: DULoxetine 30 MG CAP (CYMBALTA) PO (08:49)
[2018-08-23] MEDS: ASPIRIN 81 MG ENTERIC TAB PO (08:49)
[2018-08-23] MEDS: CALCITRIOL 0.25 MCG CAP (S0169) PO (08:49)
[2018-08-23] MEDS: AMIODARONE 200 MG TAB (PACERONE) PO (08:49)
[2018-08-23] MEDS: diltiaZEM **CD** 180 MG CAP PO (08:49)
[2018-08-23] MEDS: VITAMIN D 1,000 INTERNATIONAL UNITS TABLET PO (08:49)
[2018-08-23] MEDS: PANTOPRAZOLE 40MG TAB (PROTONIX) PO (08:50)
[2018-08-23] MEDS: METOPROLOL SUCC (TopROL XL) 50MG **XL** TAB PO (08:50)
[2018-08-23] MEDS: TORSEMIDE 20 MG TAB PO (08:50)
[2018-08-23] MEDS: HumaLOG INSULIN (NovoLOG) PER UNIT SC ×2 (08:51→11:42)
[2018-08-23] MEDS: POTASSIUM CHLORIDE 10 MEQ SR TABLET PO (08:51)
[2018-08-23] MEDS: NovoLOG MIX 70/30 PER UNIT SC ×2 (08:51→11:42)
== END 2018-08-23 12:30 | disposition home or self-care (01) | DRG 561 ==
LOC: M PM&R 16:05
PROVIDERS: Physical Medicine & Rehabilitation
DX: S72.92XD Unspecified fracture of left femur, subsequent encounter for closed fracture with routine healing (principal); Z95.2 Presence of prosthetic heart valve; I48.91 Unspecified atrial fibrillation; I10 Essential (primary) hypertension; E11.9 Type 2 diabetes mellitus without complications; M84.48XD Pathological fracture, other site, subsequent encounter for fracture with routine healing; G47.00 Insomnia, unspecified; F41.9 Anxiety disorder, unspecified; Z79.4 Long term (current) use of insulin; Z79.899 Other long term (current) drug therapy; Z79.82 Long term (current) use of aspirin; Z88.2 Allergy status to sulfonamides; Z88.8 Allergy status to other drugs, medicaments and biological substances; I25.10 Atherosclerotic heart disease of native coronary artery without angina pectoris; S62.102D Fracture of unspecified carpal bone, left wrist, subsequent encounter for fracture with routine healing; M81.0 Age-related osteoporosis without current pathological fracture

== ENCOUNTER → 2018-08-29 | Outpatient (CLI) | payer MEDICARE, BC, OTHER | LOC: M CLY 10:58 | DX: S32.010A Wedge compression fracture of first lumbar vertebra, initial encounter for closed fracture (principal); S22.020A Wedge compression fracture of second thoracic vertebra, initial encounter for closed fracture; X58.XXXA Exposure to other specified factors, initial encounter; W19.XXXA Unspecified fall, initial encounter; Y92.89 Other specified places as the place of occurrence of the external cause; M25.78 Osteophyte, vertebrae; M51.36 Other intervertebral disc degeneration, lumbar region; M51.37 Other intervertebral disc degeneration, lumbosacral region; M41.9 Scoliosis, unspecified | CPT/HCPCS: 72110; G0463 ==

== ENCOUNTER 2018-09-19 11:44 | Emergency (ER) | payer MEDICARE, BC, OTHER ==
[2018-09-19 12:38] LABS: BASO # 0.1 10^3/uL (0.0-0.2); EOS # 0.2 10^3/uL (0.0-0.50); EOS % 2.5 % (0.0-3.0); HEMATOCRIT 36.3 % (36.0-47.0); HEMOGLOBIN 12.1 g/dl (12.0-15.5); IMMATURE GRANULOCYTE % 0.3 % (0-3.0); LYMPH # 1.7 10^3/uL (1.5-4.5); LYMPH % 25.1 % (24.0-44.0); MEAN CORPUSCULAR HGB CONC 33.3 g/dl (32.0-36.5); MEAN CORPUSCULAR VOLUME 89.9 fl (80.0-96.0); MONO # 0.4 10^3/uL (0.0-0.8); MONO % 5.5 % (0.0-5.0); NEUTROPHILS # 4.4 10^3/uL (1.8-7.7); NEUTROPHILS % 65.6 % (36.0-66.0); PLATELET COUNT, AUTOMATED 309 10^3/uL (150-450); RED BLOOD COUNT 4.04 10^6/uL (4.00-5.40); WHITE BLOOD COUNT 6.7 10^3/uL (4.0-10.0)
[2018-09-19 12:49] LABS: INR 0.96; PROTHROMBIN TIME 12.9 SECONDS (12.1-14.4)
[2018-09-19 12:50] LABS: PARTIAL THROMBOPLASTIN TIME 24.3 SECONDS (25.4-37.6)
[2018-09-19 13:03] LABS: ANION GAP 7 MEQ/L (8-16); BLOOD UREA NITROGEN 11 MG/DL (7-18); CALCIUM LEVEL 7.9 MG/DL (8.5-10.1); CARBON DIOXIDE LEVEL 28 MEQ/L (21-32); CHLORIDE LEVEL 103 MEQ/L (98-107); CK-MB VALUE MASS < 1.0 NG/ML (<3.6); CPK CREATINE PHOSPHOKINASE 15 U/L (26-192); CREATININE FOR GFR 1.23 MG/DL (0.55-1.30); GLOMERULAR FILTRATION RATE 47.6 (>51); GLUCOSE, FASTING 215 MG/DL (70-100); MB/CK RELATIVE INDEX 6.67 (< OR =4); POTASSIUM SERUM 3.9 MEQ/L (3.5-5.1); SODIUM LEVEL 138 MEQ/L (136-145); TROPONIN I < 0.02 NG/ML (< 0.10)
== END 2018-09-19 15:31 | disposition home or self-care (01) ==
LOC: M ED 11:44
DX: R29.818 Other symptoms and signs involving the nervous system (principal); E11.9 Type 2 diabetes mellitus without complications; I11.0 Hypertensive heart disease with heart failure; I50.9 Heart failure, unspecified; E78.5 Hyperlipidemia, unspecified; I48.91 Unspecified atrial fibrillation; F33.9 Major depressive disorder, recurrent, unspecified; R56.9 Unspecified convulsions; Z79.899 Other long term (current) drug therapy; Z79.82 Long term (current) use of aspirin; Z79.4 Long term (current) use of insulin; Z88.1 Allergy status to other antibiotic agents; Z88.2 Allergy status to sulfonamides
CPT/HCPCS: 70450

== ENCOUNTER 2018-09-25 14:24 | Inpatient (IN) | payer MEDICARE, BC, OTHER ==
[2018-09-25 14:53] LABS: BASO # 0.1 10^3/uL (0.0-0.2); BASO % 0.8 % (0.0-1.0); EOS # 0.1 10^3/uL (0.0-0.50); EOS % 1.5 % (0.0-3.0); HEMATOCRIT 40.5 % (36.0-47.0); HEMOGLOBIN 13.3 g/dl (12.0-15.5); IMMATURE GRANULOCYTE % 0.5 % (0-3.0); LYMPH # 1.9 10^3/uL (1.5-4.5); LYMPH % 25.1 % (24.0-44.0); MEAN CORPUSCULAR HEMOGLOBIN 30.4 pg (27.0-33.0); MEAN CORPUSCULAR HGB CONC 32.8 g/dl (32.0-36.5); MEAN CORPUSCULAR VOLUME 92.5 fl (80.0-96.0); MONO # 0.4 10^3/uL (0.0-0.8); MONO % 5.4 % (0.0-5.0); NEUTROPHILS % 66.7 % (36.0-66.0); PLATELET COUNT, AUTOMATED 385 10^3/uL (150-450); RED BLOOD COUNT 4.38 10^6/uL (4.00-5.40); RED CELL DISTRIBUTION WIDTH 13.4 % (11.5-14.5); WHITE BLOOD COUNT 7.6 10^3/uL (4.0-10.0)
[2018-09-25] MEDS: ACETAMINOPHEN TAB 650MG DOSE (2X325MG) PO (15:00)
[2018-09-25 15:09] LABS: INR 1.44; PROTHROMBIN TIME 17.7 SECONDS (12.1-14.4)
[2018-09-25] MEDS: NS 1,000 ML IV (15:17)
[2018-09-25 15:21] LABS: ANION GAP 5 MEQ/L (8-16); BLOOD UREA NITROGEN 10 MG/DL (7-18); CALCIUM LEVEL 7.8 MG/DL (8.5-10.1); CARBON DIOXIDE LEVEL 34 MEQ/L (21-32); CHLORIDE LEVEL 103 MEQ/L (98-107); CK-MB VALUE MASS < 1.0 NG/ML (<3.6); CPK CREATINE PHOSPHOKINASE 18 U/L (26-192); CREATININE FOR GFR 1.16 MG/DL (0.55-1.30); FREE T4 1.11 NG/DL (0.76-1.46); GLOMERULAR FILTRATION RATE 50.9 (>51); GLUCOSE, FASTING 94 MG/DL (70-100); MAGNESIUM LEVEL 1.9 MG/DL (1.8-2.4); MB/CK RELATIVE INDEX 5.56 (< OR =4); POTASSIUM SERUM 4.1 MEQ/L (3.5-5.1); SODIUM LEVEL 142 MEQ/L (136-145); THYROID STIMULATING HORMONE 0.519 uIU/ML (0.358-3.740); TROPONIN I < 0.02 NG/ML (< 0.10)
[2018-09-25 15:41] LABS: BEDSIDE GLUCOSE 46 MG/DL (70-105)
[2018-09-25] MEDS ORDERED: DEXTROSE 50% 50 ML SYRINGE As Ordered (15:41)
[2018-09-25] MEDS: DEXTROSE 50% 50 ML SYRINGE IV (15:44)
[2018-09-25 16:12] LABS: KETONE, URINE AUTO RFX NEGATIVE (NEGATIVE); NITRITE, URINE AUTO RFX NEGATIVE (NEGATIVE); RBC, URINE AUTO RFX 0 /HPF (0-3); SPECIFIC GRAVITY UR AUTO RFX 1.003 (1.002-1.035); SQUAM EPITHELIAL CELL UR AURFX 1 /HPF (0-6); WBC, URINE AUTO RFX 2 /HPF (0-3)
[2018-09-25 16:14] LABS: LEUKOCYTE ESTERASE UR AUTO RFX TRACE (NEGATIVE)
[2018-09-25 16:39] LABS: BEDSIDE GLUCOSE 94 MG/DL (70-105)
[2018-09-25 18:03] LABS: BEDSIDE GLUCOSE 117 MG/DL (70-105)
[2018-09-25] MEDS ORDERED: NITROGLYCERIN 0.4 MG SUBL TABLET SL (19:00)
[2018-09-25] MEDS ORDERED: GLUCAGON FOR INJ 1 MG VIAL (J1610) SC (19:30)
[2018-09-25] MEDS ORDERED: DEXTROSE 50% 50 ML SYRINGE IV (19:30)
[2018-09-25] MEDS ORDERED: GLUCOSE 4 GM CHEW TABLET PO (19:30)
[2018-09-25] MEDS: D5W/0.45% SODIUM CHLORIDE 1,000 ML IV (20:28)
[2018-09-25 20:33] LABS: TROPONIN I < 0.02 NG/ML (< 0.10)
[2018-09-25] MEDS ORDERED: GABAPENTIN 400 MG CAP PO (21:00)
[2018-09-25] MEDS: traZODone 50 MG TAB PO (23:01)
[2018-09-25] MEDS: NORCO, ANEXSIA 5/325MG TABLET (HYDROcodone/ACETAMINOPHEN) PO (23:01)
[2018-09-25] MEDS: DULoxetine 30 MG CAP (CYMBALTA) PO (23:01)
[2018-09-25] MEDS: ATORVASTATIN 20 MG TAB PO (23:01)
[2018-09-25] MEDS: GABAPENTIN 300 MG CAP PO (23:25)
[2018-09-25] MEDS: DABIGATRAN ETEXILATE 75 MG CAP (PRADAXA) PO (23:25)
[2018-09-26 00:08] LABS: BEDSIDE GLUCOSE 129 MG/DL (70-105)
[2018-09-26 03:00] LABS: TROPONIN I < 0.02 NG/ML (< 0.10)
[2018-09-26 03:15] LABS: BEDSIDE GLUCOSE 134 MG/DL (70-105)
[2018-09-26 06:14] LABS: BEDSIDE GLUCOSE 59 MG/DL (70-105)
[2018-09-26 06:27] LABS: HEMATOCRIT 37.6 % (36.0-47.0); HEMOGLOBIN 12.2 g/dl (12.0-15.5); MEAN CORPUSCULAR HEMOGLOBIN 29.2 pg (27.0-33.0); MEAN CORPUSCULAR HGB CONC 32.4 g/dl (32.0-36.5); PLATELET COUNT, AUTOMATED 388 10^3/uL (150-450); RED BLOOD COUNT 4.18 10^6/uL (4.00-5.40); RED CELL DISTRIBUTION WIDTH 13.2 % (11.5-14.5); WHITE BLOOD COUNT 9.2 10^3/uL (4.0-10.0)
[2018-09-26 06:42] LABS: ANION GAP 5 MEQ/L (8-16); BLOOD UREA NITROGEN 9 MG/DL (7-18); CALCIUM LEVEL 7.2 MG/DL (8.5-10.1); CARBON DIOXIDE LEVEL 30 MEQ/L (21-32); CHLORIDE LEVEL 105 MEQ/L (98-107); CREATININE FOR GFR 1.07 MG/DL (0.55-1.30); GLOMERULAR FILTRATION RATE 55.9 (>51); GLUCOSE, FASTING 62 MG/DL (70-100); POTASSIUM SERUM 3.4 MEQ/L (3.5-5.1); SODIUM LEVEL 140 MEQ/L (136-145)
[2018-09-26 07:04] LABS: BEDSIDE GLUCOSE CONFIRMATION 71 MG/DL (LESS THAN 200)
[2018-09-26] MEDS: HumaLOG INSULIN (NovoLOG) PER UNIT SC ×3 (07:22→17:50)
[2018-09-26 08:35] LABS: FERRITIN 33 NG/ML (8-252); IRON (FE) 41 UG/DL (50-170); PERCENT SATURATION 14.3 % (13.2-45.0); TOTAL IRON BINDING CAPACITY 286 UG/DL (250-450)
[2018-09-26 08:58] LABS: ESTIMATED AVERAGE GLUCOSE 237 MG/DL (60-110); HEMOGLOBIN A1c 9.9 %
[2018-09-26] MEDS: METOPROLOL SUCC (TopROL XL) 50MG **XL** TAB PO (09:12)
[2018-09-26 09:17] LABS: VITAMIN B12 LEVEL 445 PG/ML (247-911)
[2018-09-26 09:18] LABS: FOLATE 10.5 NG/ML (>5.4)
[2018-09-26] MEDS: POTASSIUM CHLORIDE 10 MEQ SR TABLET PO (09:38)
[2018-09-26] MEDS: CALCIUM GLUCONATE 1,000 MG in D5W MINI-BAG PLUS 100 ML IV (09:38)
[2018-09-26] MEDS: PANTOPRAZOLE 40MG TAB (PROTONIX) PO (09:38)
[2018-09-26] MEDS: GABAPENTIN 300 MG CAP PO ×2 (09:38→21:18)
[2018-09-26] MEDS: ASPIRIN 81 MG ENTERIC TAB PO (09:38)
[2018-09-26] MEDS: DULoxetine 30 MG CAP (CYMBALTA) PO ×2 (09:38→21:18)
[2018-09-26] MEDS: CALCITRIOL 0.25 MCG CAP (S0169) PO (09:38)
[2018-09-26] MEDS: DABIGATRAN ETEXILATE 75 MG CAP (PRADAXA) PO ×2 (09:39→21:17)
[2018-09-26] MEDS: AMIODARONE 100MG TABLET (PACERONE) PO (09:39)
[2018-09-26] MEDS: VITAMIN D 1,000 INTERNATIONAL UNITS TABLET PO (09:39)
[2018-09-26] MEDS: NORCO, ANEXSIA 5/325MG TABLET (HYDROcodone/ACETAMINOPHEN) PO ×2 (09:53→21:18)
[2018-09-26] MEDS: MAG SULF 1GM/100ML (MAG RUN) 1 GM in APPROPRIATE DILUENT 1 EA IV (10:48)
[2018-09-26] MEDS: D5W/0.45% SODIUM CHLORIDE 1,000 ML IV (12:10)
[2018-09-26] MEDS: ENOXAPARIN 40 MG/0.4 ML SYRINGE (J1650) SC (13:32)
[2018-09-26 17:09] LABS: BEDSIDE GLUCOSE 183 MG/DL (70-105)
[2018-09-26] MEDS: traZODone 50 MG TAB PO (21:17)
[2018-09-26] MEDS: ATORVASTATIN 20 MG TAB PO (21:18)
[2018-09-27 05:45] LABS: HEMATOCRIT 36.8 % (36.0-47.0); MEAN CORPUSCULAR HEMOGLOBIN 29.8 pg (27.0-33.0); MEAN CORPUSCULAR HGB CONC 32.6 g/dl (32.0-36.5); MEAN CORPUSCULAR VOLUME 91.3 fl (80.0-96.0); PLATELET COUNT, AUTOMATED 339 10^3/uL (150-450); RED BLOOD COUNT 4.03 10^6/uL (4.00-5.40); RED CELL DISTRIBUTION WIDTH 13.1 % (11.5-14.5); WHITE BLOOD COUNT 6.5 10^3/uL (4.0-10.0)
[2018-09-27 06:16] LABS: ANION GAP 6 MEQ/L (8-16); BLOOD UREA NITROGEN 11 MG/DL (7-18); CALCIUM LEVEL 7.8 MG/DL (8.5-10.1); CARBON DIOXIDE LEVEL 29 MEQ/L (21-32); CHLORIDE LEVEL 106 MEQ/L (98-107); CREATININE FOR GFR 1.02 MG/DL (0.55-1.30); GLUCOSE, FASTING 163 MG/DL (70-100); POTASSIUM SERUM 4.1 MEQ/L (3.5-5.1); SODIUM LEVEL 141 MEQ/L (136-145)
[2018-09-27] MEDS: CALCITRIOL 0.25 MCG CAP (S0169) PO (08:27)
[2018-09-27] MEDS: AMIODARONE 100MG TABLET (PACERONE) PO (08:27)
[2018-09-27] MEDS: GABAPENTIN 300 MG CAP PO (08:27)
[2018-09-27] MEDS: VITAMIN D 1,000 INTERNATIONAL UNITS TABLET PO (08:27)
[2018-09-27] MEDS: PANTOPRAZOLE 40MG TAB (PROTONIX) PO (08:27)
[2018-09-27] MEDS: METOPROLOL SUCC (TopROL XL) 50MG **XL** TAB PO (08:27)
[2018-09-27] MEDS: DULoxetine 30 MG CAP (CYMBALTA) PO (08:27)
[2018-09-27] MEDS: DABIGATRAN ETEXILATE 75 MG CAP (PRADAXA) PO (08:27)
[2018-09-27] MEDS: ASPIRIN 81 MG ENTERIC TAB PO (08:28)
[2018-09-27] MEDS: CALCIUM GLUCONATE 1,000 MG in D5W MINI-BAG PLUS 100 ML IV (08:28)
[2018-09-27] MEDS: HumaLOG INSULIN (NovoLOG) PER UNIT SC (08:28)
[2018-09-27] MEDS: ENOXAPARIN 40 MG/0.4 ML SYRINGE (J1650) SC (08:29)
[2018-09-28 23:28] LABS: BEDSIDE GLUCOSE 189 MG/DL (70-105)
[2018-09-28 23:28] LABS: BEDSIDE GLUCOSE 215 MG/DL (70-105)
[2018-09-28 23:28] LABS: BEDSIDE GLUCOSE 105 MG/DL (70-105)
[2018-09-28 23:28] LABS: BEDSIDE GLUCOSE 75 MG/DL (70-105)
[2018-09-29 06:08] LABS: BEDSIDE GLUCOSE 200 MG/DL (70-105)
== END 2018-09-27 12:37 | disposition home health service (06) | DRG 312 ==
LOC: M ED 14:24 → M ED INP 19:22 → M MSPAV 22:22
DX: I95.1 Orthostatic hypotension (principal); I50.22 Chronic systolic (congestive) heart failure; I13.0 Hypertensive heart and chronic kidney disease with heart failure and stage 1 through stage 4 chronic kidney disease, or unspecified chronic kidney disease; I48.91 Unspecified atrial fibrillation; E78.5 Hyperlipidemia, unspecified; K21.9 Gastro-esophageal reflux disease without esophagitis; E55.9 Vitamin D deficiency, unspecified; E11.40 Type 2 diabetes mellitus with diabetic neuropathy, unspecified; I25.10 Atherosclerotic heart disease of native coronary artery without angina pectoris; E83.42 Hypomagnesemia; E83.51 Hypocalcemia; E11.21 Type 2 diabetes mellitus with diabetic nephropathy; F41.9 Anxiety disorder, unspecified; F32.9 Major depressive disorder, single episode, unspecified; N18.3 Chronic kidney disease, stage 3 (moderate); Z79.4 Long term (current) use of insulin; Z79.82 Long term (current) use of aspirin; Z79.899 Other long term (current) drug therapy; Z88.2 Allergy status to sulfonamides; Z88.8 Allergy status to other drugs, medicaments and biological substances; G47.00 Insomnia, unspecified

== ENCOUNTER 2018-09-29 14:43 | Observation (INO) | payer MEDICARE, BC, OTHER ==
[~2018-09-29] VITALS: Ht 175.3 cm; Wt 90.8 kg
[~2018-09-29 14:43] MED LIST changes: +/GLIM2TA OR; +/ONDA4TA PO; +ACET-654 PO; +ACET300T52 PO; +ALPR0.25 PO; +ALPR1TAB3 PO; +APIDINJ SC; +ASPI1TAB PO; +ATOR80TA59 PO; +BABY81CH OR; +CALC1CAP31 PO; +CALC600T60 PO; +CART180C3 PO; +CARV3.12 PO; +CIPR25SS OR; +COLA50CA3 PO; +CYCL5TAB PO; +CYMB1CAP5 PO; +DEPA500T OR; +DIVA500T9 PO; +FISH1000 PO; +FLAG500T OR; +FLAG500T PO; +FURO20TA2 PO; +GABA-843 PO; +GABA-845 PO; +HYDR-3713 PO; +HYDR50CA2; +HYDR7.5T38 PO; +INSUDET SC; +INSULADS SQ; +INSULANT SC; -ISOVUE-370 76% 100ML VIAL (Q9967) As Ordered; +K-TA1TAB PO; +KEPP1000 PO; +LANTINJ4 SC; +LOPR1TAB6 PO; +MECL12.5 OR; +METO1TAB7 PO; +MEXI150C PO; +MIDO5TAB PO; +NITR0.4S SL; +NITR0.4S14 SL; +NORCOTAB PO; +NOVO70VL SC; +NOVOINJ3 SC; +PACE200T PO; +PANT40TA3 PO; +PATIENT COMMENTS; +PERC7.5T12 PO; +PERC7.5T8 PO; +POTA20TA PO; +PRAD75CA3 PO; +PROP20TA72; +SIMV80TA OR; +TIZA4CAP PO; +TIZA4CAP6 PO; +TORS20TA2 PO; +TRAZ-160 PO; +TRAZO50TA PO; +TYLETAB14 PO; +ULTR50TA PO; +VICO5TAB OR; +VITA100067 PO; +VITA500047 PO; +ZOCO10TA PO; +ZOFR4SOL PO; +ZOLO100T OR; +januvia PO; +nitroglycerin TD; +trazadone PO
[2018-09-29 15:04] LABS: BASO # 0.1 10^3/uL (0.0-0.2); BASO % 0.9 % (0.0-1.0); EOS # 0.2 10^3/uL (0.0-0.50); EOS % 3.4 % (0.0-3.0); HEMATOCRIT 41.6 % (36.0-47.0); HEMOGLOBIN 13.5 g/dl (12.0-15.5); LYMPH # 2.1 10^3/uL (1.5-4.5); LYMPH % 29.4 % (24.0-44.0); MEAN CORPUSCULAR HEMOGLOBIN 29.7 pg (27.0-33.0); MEAN CORPUSCULAR HGB CONC 32.5 g/dl (32.0-36.5); MEAN CORPUSCULAR VOLUME 91.6 fl (80.0-96.0); MONO # 0.5 10^3/uL (0.0-0.8); NEUTROPHILS # 4.1 10^3/uL (1.8-7.7); NEUTROPHILS % 58.9 % (36.0-66.0); PLATELET COUNT, AUTOMATED 397 10^3/uL (150-450); RED BLOOD COUNT 4.54 10^6/uL (4.00-5.40)
[2018-09-29 15:23] LABS: INR 1.32; PROTHROMBIN TIME 16.6 SECONDS (12.1-14.4)
[2018-09-29 15:33] LABS: ALBUMIN 3.6 GM/DL (3.2-5.2); ALT/SGPT 32 U/L (12-78); BILIRUBIN,DIRECT 0.1 MG/DL (0.0-0.2); BILIRUBIN,TOTAL 0.6 MG/DL (0.2-1.0); BLOOD UREA NITROGEN 13 MG/DL (7-18); CALCIUM LEVEL 8.8 MG/DL (8.5-10.1); CARBON DIOXIDE LEVEL 34 MEQ/L (21-32); CHLORIDE LEVEL 96 MEQ/L (98-107); CK-MB VALUE MASS < 1.0 NG/ML (<3.6); CPK CREATINE PHOSPHOKINASE 30 U/L (26-192); CREATININE FOR GFR 1.43 MG/DL (0.55-1.30); FREE T4 1.28 NG/DL (0.76-1.46); GLUCOSE, FASTING 115 MG/DL (70-100); LIPASE 49 U/L (73-393); MAGNESIUM LEVEL 1.8 MG/DL (1.8-2.4); MB/CK RELATIVE INDEX 3.33 (< OR =4); NT-PRO BNP 73 PG/ML (<125); POTASSIUM SERUM 3.8 MEQ/L (3.5-5.1); SODIUM LEVEL 138 MEQ/L (136-145); TOTAL PROTEIN 6.9 GM/DL (6.4-8.2); TROPONIN I < 0.02 NG/ML (< 0.10)
[2018-09-29] MEDS ORDERED: NS 500 ML IV ONE (16:15)
[2018-09-29] MEDS ORDERED: SPIR-10 PO (16:46)
[2018-09-29] MEDS ORDERED: REST0.05 OU (16:46)
[2018-09-29] MEDS ORDERED: ONDA4TAB5 PO (16:46)
[2018-09-29] MEDS ORDERED: GLUCAGON FOR INJ 1 MG VIAL (J1610) SC PRN (17:15)
[2018-09-29] MEDS ORDERED: NORCO, ANEXSIA 5/325MG TABLET (HYDROcodone/ACETAMINOPHEN) PO PRN (17:15)
[2018-09-29] MEDS ORDERED: NITROGLYCERIN 0.4 MG SUBL TABLET SL PRN (17:15)
[2018-09-29] MEDS ORDERED: DEXTROSE 50% 50 ML SYRINGE IV PRN (17:15)
[2018-09-29] MEDS ORDERED: GLUCOSE 4 GM CHEW TABLET PO PRN (17:15)
[2018-09-29] MEDS ORDERED: NS 750 ML IV SCH (17:30)
[2018-09-29] MEDS: HumaLOG INSULIN (NovoLOG) PER UNIT SC SCH (17:30)
--- NOTE | 2018-09-29 17:51 | REPVR ---
EXAM: CT Head Without Contrast EXAM DATE/TIME: 09/29/2018 5:19 PM CLINICAL HISTORY: 58 years old, female; Signs and symptoms; Dizziness TECHNIQUE: Axial computed tomography images of the head/brain without contrast. All CT scans at this facility use at least one of these dose optimization techniques: automated exposure control; mA and/or kV adjustment per patient size (includes targeted exams where dose is matched to clinical indication); or iterative reconstruction. COMPARISON: CT Head without contrast 09/25/2018 7:27 PM FINDINGS: Brain: There is parenchymal volume loss. White matter changes are demonstrated in the subcortical, centrum semiovale and periventricular white matter consistent with small vessel white matter angiopathic gliosis. Ventricles: Normal. No ventriculomegaly. Bones/joints: Normal. No acute fracture. Sinuses: Normal as visualized. No acute sinusitis. Mastoid air cells: Normal as visualized. No mastoid effusion. Soft tissues: Normal. IMPRESSION: There is parenchymal volume loss. White matter changes are demonstrated in the subcortical, centrum semiovale and periventricular white matter consistent with small vessel white matter angiopathic gliosis. No acute findings. Electronically signed by: Bhaskar Pacheco On 09/29/2018 17:50:55 PM
[2018-09-29] MEDS ORDERED: NS 1,000 ML IV SCH (18:00)
[2018-09-29 18:16] VITALS: BP 137/72
--- NOTE | 2018-09-29 19:51 | REP ---
CHEST, PORTABLE: AP portable view of the chest was performed and compared to prior study of 09/25/2018. There is no acute infiltrate. Heart is normal in size. Mediastinal silhouette is unchanged. Left dual lead pace maker is again noted. IMPRESSION: No acute infiltrate. Electronically Signed by Avni Burgos MD 09/30/2018 09:17 A
[2018-09-29] MEDS: DULoxetine 30 MG CAP (CYMBALTA) PO SCH (20:42)
[2018-09-29] MEDS: ALPRAZolam 0.25 MG TAB PO SCH (20:43)
[2018-09-29] MEDS: GABAPENTIN 300 MG CAP PO SCH (20:43)
[2018-09-29] MEDS: LEVEMIR (INSULIN DETEMIR) 1 UNITS/0.01ML SC SCH (20:43)
[2018-09-29] MEDS ORDERED: LEVEMIR (INSULIN DETEMIR) 1 UNITS/0.01ML SC SCH (21:00)
[2018-09-29] MEDS ORDERED: traZODone 50 MG TAB PO SCH (21:00)
[2018-09-29] MEDS ORDERED: ATORVASTATIN 20 MG TAB PO SCH (21:00)
[2018-09-29] MEDS: DABIGATRAN ETEXILATE 75 MG CAP (PRADAXA) PO SCH (21:17)
[2018-09-29 22:00] VITALS: BP 134/63
[2018-09-30 06:00] VITALS: BP 119/62
[2018-09-30 06:36] LABS: APPEARANCE, URINE CLOUDY (CLEAR); BACTERIA, URINE AUTO 1+ (NEGATIVE); BILIRUBIN, URINE AUTO NEGATIVE (NEGATIVE); BLOOD, URINE BLOOD 1+ (NEGATIVE); COLOR, URINE YELLOW (YELLOW); GLUCOSE, URINE (UA) AUTO NEGATIVE (NEGATIVE); KETONE, URINE AUTO NEGATIVE (NEGATIVE); LEUKOCYTE ESTERASE, URINE AUTO 3+ (NEGATIVE); NITRITE, URINE AUTO NEGATIVE (NEGATIVE); PROTEIN, URINE AUTO NEGATIVE (NEGATIVE); RBC, URINE AUTO 35 /HPF (0-3); SPECIFIC GRAVITY URINE AUTO 1.006 (1.002-1.035); SQUAMOUS EPITHELIAL CELL UR AU 4 /HPF (0-6); UROBILINOGEN, URINE AUTO 0.2 mg/dL (0.0-2.0); WBC, URINE AUTO TNTC /HPF (0-3)
[2018-09-30 06:40] VITALS: BP 119/62
[2018-09-30 06:42] VITALS: BP_SYST 119; BP_SYST 97; BP_SYST 98; BP_DIAS 62; BP_DIAS 65; BP_DIAS 70
[2018-09-30] MEDS: HumaLOG INSULIN (NovoLOG) PER UNIT SC SCH ×2 (07:29→11:50)
[2018-09-30 07:41] LABS: HEMATOCRIT 37.7 % (36.0-47.0); HEMOGLOBIN 12.4 g/dl (12.0-15.5); MEAN CORPUSCULAR HEMOGLOBIN 29.9 pg (27.0-33.0); MEAN CORPUSCULAR HGB CONC 32.9 g/dl (32.0-36.5); MEAN CORPUSCULAR VOLUME 90.8 fl (80.0-96.0); PLATELET COUNT, AUTOMATED 352 10^3/uL (150-450); RED BLOOD COUNT 4.15 10^6/uL (4.00-5.40); WHITE BLOOD COUNT 7.3 10^3/uL (4.0-10.0)
[2018-09-30] MEDS: LEVEMIR (INSULIN DETEMIR) 1 UNITS/0.01ML SC SCH (08:05)
[2018-09-30 08:08] LABS: BLOOD UREA NITROGEN 13 MG/DL (7-18); CALCIUM LEVEL 7.6 MG/DL (8.5-10.1); CARBON DIOXIDE LEVEL 31 MEQ/L (21-32); CHLORIDE LEVEL 105 MEQ/L (98-107); CREATININE FOR GFR 1.25 MG/DL (0.55-1.30); GLOMERULAR FILTRATION RATE 46.7 (>51); GLUCOSE, FASTING 66 MG/DL (70-100); MAGNESIUM LEVEL 1.9 MG/DL (1.8-2.4); POTASSIUM SERUM 3.3 MEQ/L (3.5-5.1); SODIUM LEVEL 142 MEQ/L (136-145); TROPONIN I < 0.02 NG/ML (< 0.10)
[2018-09-30] MEDS: GABAPENTIN 300 MG CAP PO SCH (08:15)
[2018-09-30] MEDS: DULoxetine 30 MG CAP (CYMBALTA) PO SCH (08:15)
[2018-09-30] MEDS: ALPRAZolam 0.25 MG TAB PO SCH (08:15)
--- NOTE | 2018-09-30 08:17 | HPE ---
DATE OF ADMISSION: 09/29/2018 CHIEF COMPLAINT: Dizziness and presyncope. HISTORY OF PRESENT ILLNESS: The patient is a 58-year-old female with significant past medical history of orthostatic hypotension, diabetes with neuropathy and nephropathy, atrial fibrillation, rhythm controlled, on amiodarone and Pradaxa, hypertension, depression, coronary artery disease (CAD), systolic congestive heart failure (CHF), chronic kidney disease (CKD) stage III. Patient was admitted to [facility] on 09/25/2018 and subsequently discharged 09/27/2018 with complaints of dizziness and presyncope when going from sitting to standing position. She had a workup at that point, CT head, blood cultures, urinalysis (UA), all which were negative. She was orthostatic positive at that point in time. She was subsequently discharged on 09/27/2018, diuretics were resumed, and today she presents again, states she was sitting down, stood up, felt dizzy, lightheaded, did not syncopize or lose consciousness, took her blood pressure and her systolic blood pressure was in the 80s, en route it was in the 80s, she responded to fluid hydration. She remains orthostatic positive in the emergency department (ED). Currently, she has no focal deficits. She denies any chest pain, shortness of breath, abdominal pain, constipation, diarrhea, urinary symptoms, cough, fevers, or chills. PAST MEDICAL HISTORY: See history of present illness (HPI). PAST SURGICAL HISTORY: She had open reduction internal fixation (ORIF) of the femur on 10/09/2018, wrist surgery 10/12/2018, carpal tunnel syndrome, right meniscal tear. ALLERGIES: To BACITRACIN, KEPPRA, LISINOPRIL, NEOMYCIN, nickel, POLYMYXIN B, and SULFA ANTIBIOTICS. HOME MEDICATIONS: - [place] - Xanax - amiodarone - aspirin - Lipitor - Pradaxa - Cymbalta - gabapentin - Toprol - Lantus 52 units twice a day - potassium chloride - torsemide - trazodone - vitamin D - nitroglycerin - calcitriol - spironolactone SOCIAL HISTORY: She is a former smoker. Denies alcohol or illicit drug use. FAMILY HISTORY: Of coronary artery disease. REVIEW OF SYSTEMS: A 12-point review of systems was completed, all which were negative except those listed in the history of present illness (HPI). VITAL SIGNS ON ADMISSION: Temperature 97.9, pulse 60, respirations 15, blood pressure 115/59, saturating at 98% on room air. PHYSICAL EXAMINATION: GENERAL: She is well nourished, in no apparent distress. HEAD: Normocephalic, atraumatic. EYES: Extraocular movements are intact. Pupils are equal, round and reactive to light. NECK: Supple, no jugular venous pulse (JVP). LUNGS: Clear to auscultation. No crackles, wheezes, rales, or rhonchi. CARDIOVASCULAR: Regular rate and rhythm, normal S1, S2, no murmurs, gallops or rubs. ABDOMEN: Soft, nontender, nondistended, positive bowel sounds, no rebound, no guarding. EXTREMITIES: No pitting edema, no calf tenderness. SKIN: Intact. No rashes, lesions, or breakdown. NEUROLOGICAL EXAM: Alert and oriented times three, no focal deficits appreciated in the exam. LABORATORY DATA AND IMAGING: Completed in the emergency room: White count 7, hemoglobin and hematocrit 13/41, platelet count 397. Coagulations: INR 1.32. Chemistry shows BUN/creatinine of 13/1.43, baseline creatinine of 1, troponin are negative times one. TSH and free T4 within normal limits. Chest x-ray shows no acute disease. ASSESSMENT AND PLAN: Recurrent dizziness, presyncope, likely secondary to orthostatic hypotension: Will hold the patient's diuretics. Will gently fluid hydrate with the underlying history of congestive heart failure (CHF). Will do daily orthostatics. There is some concern that the patient had an abnormal rhythm while en route to emergency medical services (EMS). In the emergency room, she has had no such rhythm, however we will keep the patient on telemetry. We will do daily EKGs. We will recycle her troponin. Daily orthostatics. Will repeat a CT of the head as well as a urinalysis. Blood culture again sent in the emergency room. Patient's charge nurse contacted, Dr. Lobo Persaud, who has an appointment with the patient on Sunday. Will monitor the patient overnight to assess for any orthostatic hypotension. As per charge nurse, diuretics are to be held until the patient sees him in the office on Sunday. For the rest of her chronic medical conditions: Systolic congestive heart failure (CHF): Patient is currently euvolemic. Will hold her torsemide. Will hold her spironolactone in the setting of orthostatics. Will also hold potassium supplements. Will continue metoprolol. History of depression: Continue Xanax. Will continue Cymbalta and trazodone. Diabetes with neuropathy and nephropathy: She is in acute renal failure likely secondary to prerenal azotemia. Will cut the dose of long-acting insulin from 52 twice a day to 40 twice a day while the patient is in the hospital as she does have a history of hypoglycemia. Will continue insulin sliding scale. For acute kidney injury (YEE) on chronic kidney disease (CKD): Will hold nephrotoxic medications and fluid hydrate. Hyperlipidemia, coronary artery disease (CAD) status post percutaneous coronary intervention (PCI): Nitroglycerin as needed. Continue aspirin and Lipitor. History of atrial fibrillation, rhythm controlled: Continue amiodarone and Pradaxa. Diabetic neuropathy: Continue gabapentin. SUPPORTIVE: Deep venous thrombosis (DVT) prophylaxis: On Pradaxa. Gastrointestinal (GI) prophylaxis: Not indicated. Diet: Cardiac, diabetic, fluid restriction. General precautions: Fall. Patient to be placed on the observation unit. MTDD
[2018-09-30] MEDS: DABIGATRAN ETEXILATE 75 MG CAP (PRADAXA) PO SCH (08:18)
[2018-09-30] MEDS ORDERED: PANTOPRAZOLE 40MG TAB (PROTONIX) PO SCH (09:00)
[2018-09-30] MEDS ORDERED: ASPIRIN 81 MG ENTERIC TAB PO SCH (09:00)
[2018-09-30] MEDS ORDERED: CALCITRIOL 0.25 MCG CAP (S0169) PO SCH (09:00)
[2018-09-30] MEDS ORDERED: VITAMIN D 1,000 INTERNATIONAL UNITS TABLET PO SCH (09:00)
[2018-09-30] MEDS ORDERED: AMIODARONE 100MG TABLET (PACERONE) PO SCH (09:00)
[2018-09-30] MEDS ORDERED: METOPROLOL SUCC (TopROL XL) 50MG **XL** TAB PO SCH (09:00)
--- NOTE | 2018-09-30 09:25 | ECGEPIP ---
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
[2018-09-30] MEDS ORDERED: SODIUM CHLORIDE 0.9% 1000ML IV ONE (11:00)
--- NOTE | 2018-10-01 18:24 | DSES ---
DATE OF ADMISSION: 09/29/2018 DATE OF DISCHARGE: 09/30/2018 PRIMARY CARE PROVIDER: Dr. Noonan CONSULTANTS: None. DISCHARGE DIAGNOSES: 1. Near syncope episode. 2. Questionable ventricular tachycardia (v-tach). 3. Orthostatic hypotension. 4. Systolic congestive heart failure. 5. Depression. 6. Diabetes with diabetic neuropathy and nephropathy. 7. Acute on chronic kidney disease. 8. Dyslipidemia. 9. History of atrial fibrillation. HOSPITALIZATION COURSE: The patient is a 58-year-old female, presented to [facility] on 09/29/2018 by ambulance for near syncope episode. According to emergency medical services (EMS), the patient was thought to have an episode of v-tach. When the patient was placed on telemetry in the emergency room, no cardiac rhythm events were detected. The patient did demonstrate orthostatic hypotension. The case was discussed with the patient's mgmt specialist, and the patient was admitted under hospitalist service under observation status. Diuretic was discontinued, patient started on gentle fluid support. Renal function improved and orthostatic hypotension resolved, and the patient cleared with physical therapy and patient was determined stable for discharge home on 09/30/2018 with the recommendation to followup with mgmt specialist in 24-48 hours. And patient recommended to continue holding the diuretic until reevaluated by the mgmt specialist. VITAL SIGNS ON THE DAY OF DISCHARGE: Temperature 97.9, pulse 60, respirations 18, blood pressure is 119/62, pulse oximetry is 95% in room air. LABORATORY DATA: WBC is 7.3, hemoglobin 12.4, hematocrit is 37.7, platelet count is 352. Sodium is 142, potassium 3.3, chloride 105, carbon dioxide 31, BUN 13, creatinine 1.25, GFR is 46.7, fasting glucose 66, calcium is 7.6, magnesium 1.9. Troponin I is less than 0.02 times two sets. Microbiology: Blood culture from 09/29/2018 is negative after 48 hours times two sets. IMAGING STUDIES: Chest x-ray showed no acute infiltrate. CT of the head without contrast demonstrated parenchymal volume loss. Small vessel white matter angiopathic gliosis. No acute findings. DISCHARGE MEDICATIONS: - acetaminophen/hydrocodone one tablet by mouth every 8 hours as needed - alprazolam 0.25 mg by mouth twice a day - amiodarone 100 mg by mouth daily - aspirin 81 mg by mouth daily - atorvastatin 80 mg by mouth every evening - calcitriol 0.25 mcg by mouth daily - calcium 600 mg by mouth twice a day - Pradaxa 150 mg by mouth twice a day - Cymbalta 30 mg by mouth twice a day - gabapentin 300 mg by mouth twice a day - NovoLog subcu before food and nightly - Lantus 52 units subcu twice a day - metoprolol succinate 50 mg by mouth daily - nitroglycerin 0.4 mg sublingual as needed for chest pain - ondansetron 4 mg by mouth every 6 hours as needed for nausea - pantoprazole 40 mg by mouth daily - potassium chloride 20 mEq by mouth daily - tizanidine 4 mg by mouth three times a day as needed for muscle spasms - trazodone 50 mg by mouth nightly DISCONTINUED MEDICATIONS: Spironolactone 25 mg by mouth daily, torsemide 40 mg by mouth daily. DISCHARGE INSTRUCTIONS: Discontinue line. Discharge home. Activity as tolerated. Low salt diet as tolerated and consistent carbohydrate diet. Patient recommended to followup with her primary care provider, Dr. Noonan, in 1-2 weeks. Patient should be reevaluated by the mgmt specialist in 24-48 hours of discharge. Continue to hold the diuretic until reevaluated by the mgmt specialist. DISCHARGE CONDITION: Stable. DISCHARGE TIME: Less than 30 minutes. MTDD
== END 2018-09-30 12:03 | disposition home or self-care (01) ==
LOC: M ED 14:43 → EDBD 14:43 → M ED INP 17:12 → M MSPAV 18:12
PROVIDERS: ADMIT Internal Medicine; ATTEND Internal Medicine
DX: R55 Syncope and collapse (principal); I47.2 Ventricular tachycardia; I50.20 Unspecified systolic (congestive) heart failure; F32.9 Major depressive disorder, single episode, unspecified; E11.21 Type 2 diabetes mellitus with diabetic nephropathy; E11.40 Type 2 diabetes mellitus with diabetic neuropathy, unspecified; N18.3 Chronic kidney disease, stage 3 (moderate); I25.10 Atherosclerotic heart disease of native coronary artery without angina pectoris; E78.5 Hyperlipidemia, unspecified; Z86.79 Personal history of other diseases of the circulatory system; Z79.82 Long term (current) use of aspirin; Z79.4 Long term (current) use of insulin; Z79.899 Other long term (current) drug therapy; Z88.8 Allergy status to other drugs, medicaments and biological substances; Z88.2 Allergy status to sulfonamides; Z87.891 Personal history of nicotine dependence
CPT/HCPCS: 36415; 70450; 71045; 80048; 80076; 81001; 82550; 82553; 83605; 83690; 83735; 83880; 84439; 84443; 84484; 85025; 85027; 85610; 87040; 93005; 93041; 94760; 96360; 97116; 97161; 97530; 99285; G0378

== ENCOUNTER → 2018-10-25 | Outpatient (CLI) | payer MEDICARE, BC, OTHER ==
[~2018-10-25] MED LIST changes: +ONDA4TAB5 PO; +REST0.05 OU; +SPIR-10 PO
--- NOTE | 2018-10-25 16:50 | REP ---
Unilateral right ribs PA chest five views History: Sprain Comparison: 09/29/2018 The lungs are clear. The heart is normal in size. The pulmonary vasculature is normal in appearance. The bony structure is intact. A cardiac pacemaker is present. Impression: No acute disease. Electronically Signed by Chaim Badillo MD 10/25/2018 04:40 P
== END ==
LOC: M LRY 16:12
PROVIDERS: ATTEND Physician Assistant Medical
DX: S23.41XA Sprain of ribs, initial encounter (principal); X50.1XXA Overexertion from prolonged static or awkward postures, initial encounter; Y92.9 Unspecified place or not applicable; Z95.0 Presence of cardiac pacemaker
CPT/HCPCS: 71101; G0463

== ENCOUNTER → 2018-10-30 | Outpatient (REF) | payer MEDICARE, OTHER | LOC: M SFHCCLAY 11:41 | PROVIDERS: ATTEND Family Medicine | DX: N95.1 Menopausal and female climacteric states (principal); F41.9 Anxiety disorder, unspecified | CPT/HCPCS: 84443; G0463 ==

== ENCOUNTER → 2018-11-04 | Outpatient (CLI) | payer MEDICARE, BC, OTHER ==
[~2018-11-04] MED LIST changes: +LIDOCAINE 1% MDV 20ML VIAL As Ordered ONE
[2018-11-04 12:51] LABS: BLOOD UREA NITROGEN BF 18 MG/DL (NOT ESTABLISHED); CREATININE BF 1.1 MG/DL (NOT ESTABLISHED); SOURCE, BODY FLUID CREATININE OTHER
--- NOTE | 2018-11-04 20:18 | REP ---
ULTRASOUND-GUIDED LEFT RENAL CYST ASPIRATION The procedure was performed under the direct supervision of Dr. Murguia. The patient has a history of A 9.9 simple cyst in the lower pole of the left kidney seen on a previous ultrasound dated 05/29/2018. The risks and benefits of the procedure were explained to the patient and informed consent was obtained. The left renal cyst was localized using ultrasound guidance. The skin was prepped and draped in a sterile fashion. 1% lidocaine was used as a local anesthetic. Using ultrasound guidance a 5-Yoruba centesis catheter was inserted and 250 ml of clear yellow fluid was withdrawn and sent to lab for analysis. The patient tolerated the procedure well and there were no immediate complications. Reviewed by BENNETT Ga 11/04/2018 05:06 P Electronically Signed by Hector Murguia MD 11/04/2018 08:09 P
== END ==
LOC: M RADPRO 10:38
PROVIDERS: ATTEND Internal Medicine Nephrology
DX: N28.1 Cyst of kidney, acquired (principal); N18.3 Chronic kidney disease, stage 3 (moderate); N25.81 Secondary hyperparathyroidism of renal origin; I13.0 Hypertensive heart and chronic kidney disease with heart failure and stage 1 through stage 4 chronic kidney disease, or unspecified chronic kidney disease; E11.22 Type 2 diabetes mellitus with diabetic chronic kidney disease; E78.00 Pure hypercholesterolemia, unspecified; I25.10 Atherosclerotic heart disease of native coronary artery without angina pectoris; I15.0 Renovascular hypertension; I34.0 Nonrheumatic mitral (valve) insufficiency; I50.22 Chronic systolic (congestive) heart failure; E87.6 Hypokalemia; E55.9 Vitamin D deficiency, unspecified; E66.9 Obesity, unspecified; G62.9 Polyneuropathy, unspecified; M19.90 Unspecified osteoarthritis, unspecified site; M79.7 Fibromyalgia; F41.9 Anxiety disorder, unspecified; F33.9 Major depressive disorder, recurrent, unspecified; Z79.01 Long term (current) use of anticoagulants; Z79.899 Other long term (current) drug therapy; Z79.82 Long term (current) use of aspirin; Z79.4 Long term (current) use of insulin; Z88.1 Allergy status to other antibiotic agents; Z88.2 Allergy status to sulfonamides; Z88.8 Allergy status to other drugs, medicaments and biological substances

== ENCOUNTER → 2018-11-27 | Outpatient (REF) | payer MEDICARE, OTHER ==
[~2018-11-27] MED LIST changes: -LIDOCAINE 1% MDV 20ML VIAL As Ordered ONE
[2018-11-30 15:39] LABS: HPV HYBRID CAPTURE II Negative (Negative)
== END ==
LOC: M SFHCCLAY 17:15
PROVIDERS: ATTEND Family Medicine
DX: Z12.4 Encounter for screening for malignant neoplasm of cervix (principal); R87.610 Atypical squamous cells of undetermined significance on cytologic smear of cervix (ASC-US); N95.2 Postmenopausal atrophic vaginitis
CPT/HCPCS: 87624; G0123

== ENCOUNTER → 2018-12-04 | Outpatient (CLI) | payer MEDICARE, BC, OTHER ==
--- NOTE | 2018-12-04 15:04 | REP ---
RENAL AND BLADDER ULTRASOUND: Real-time sonographic evaluation of the kidneys performed. The kidneys are normal in size and echotexture, right kidney measuring 11.1 x 5.0 x 4.5 cm and left kidney 10.3 x 4.8 x 4.7 cm. There is no hydronephrosis bilaterally. Exophytic cyst lower pole left kidney measures 4.6 x 1.7 x 2.5 cm. There is no other evidence of renal mass or stone. Urinary bladder is mildly distended and grossly unremarkable. IMPRESSION: Patient reportedly had cyst aspiration left kidney 11/04/2018. Residual exophytic cyst is seen of the lower pole of the left kidney 4.6 x 1.7 x 2.5 cm. No hydronephrosis. Electronically Signed by Avni Burgos MD 12/04/2018 08:11 P
== END ==
LOC: M RAD 10:09
PROVIDERS: ATTEND Internal Medicine Nephrology
DX: N28.1 Cyst of kidney, acquired (principal)

== ENCOUNTER → 2018-12-11 | Outpatient (REF) | payer MEDICARE, OTHER ==
[2018-12-11 18:27] LABS: CALCIUM LEVEL 8.7 MG/DL (8.5-10.1); CREATININE FOR GFR 1.14 MG/DL (0.55-1.30); GLOMERULAR FILTRATION RATE 51.9 (>51); POTASSIUM SERUM 4.5 MEQ/L (3.5-5.1)
[2018-12-11 18:48] LABS: BASO # 0.1 10^3/uL (0.0-0.2); BASO % 0.9 % (0.0-1.0); EOS # 0.2 10^3/uL (0.0-0.50); EOS % 2.2 % (0.0-3.0); HEMATOCRIT 46.3 % (36.0-47.0); HEMOGLOBIN 14.9 g/dl (12.0-15.5); LYMPH # 1.4 10^3/uL (1.5-4.5); LYMPH % 15.4 % (24.0-44.0); MEAN CORPUSCULAR HEMOGLOBIN 27.9 pg (27.0-33.0); MEAN CORPUSCULAR HGB CONC 32.2 g/dl (32.0-36.5); MEAN CORPUSCULAR VOLUME 86.7 fl (80.0-96.0); MONO # 0.4 10^3/uL (0.0-0.8); MONO % 4.5 % (0.0-5.0); NEUTROPHILS # 6.8 10^3/uL (1.8-7.7); NEUTROPHILS % 76.6 % (36.0-66.0); PLATELET COUNT, AUTOMATED 439 10^3/uL (150-450); RED BLOOD COUNT 5.34 10^6/uL (4.00-5.40); WHITE BLOOD COUNT 8.9 10^3/uL (4.0-10.0)
== END ==
LOC: M LAB REF 17:49 → M LABDRAWC 17:49
PROVIDERS: ATTEND Internal Medicine Cardiovascular Disease
DX: I42.9 Cardiomyopathy, unspecified (principal); I45.89 Other specified conduction disorders; I50.22 Chronic systolic (congestive) heart failure; I48.0 Paroxysmal atrial fibrillation

== ENCOUNTER → 2019-01-07 | Outpatient (CLI) | payer MEDICARE, BC ==
--- NOTE | 2019-01-07 14:37 | REPMRS ---
Patient History The patient states she had a clinical breast exam in 12/2018. Patient is postmenopausal. Family history of colorectal cancer at age 48 in sister. No Hormone Replacement Therapy Digital Woman Screen Mammo: January 07, 2019 - Exam #: [id number] Bilateral CC and MLO view(s) were taken. Technologist: Alicia Solis, Technologist Prior study comparison: April 10, 2017, bilateral digital mammo screening bilat, performed at [facility]. March 2009, digital bilateral screening mammo. FINDINGS: There are scattered fibroglandular densities. There is a pacemaker power plant projecting over the left axilla on the MLO view. There has been no change in the appearance of the mammogram from the prior studies. There is a mild amount of scattered fibroglandular density which is fairly symmetric. There is no interval development of dominant mass, architectural distortion, or clustered microcalcification suggestive of malignancy. 3-D tomosynthesis shows no additional findings. Assessment: BI-RADS/ACR category 2 mammogram. Benign Findings. Recommendation Routine screening mammogram of both breasts in 1 year (for women over age 40). This patient's Lifetime Breast Cancer RIsk is estimated at 9.6 %. This mammogram was interpreted with the aid of an FDA-approved computer-aided dectection system. Electronically Signed By: Tolu Murguia MD 01/07/19 2366
== END ==
LOC: M WHC 10:07
PROVIDERS: ATTEND Family Medicine
DX: Z12.31 Encounter for screening mammogram for malignant neoplasm of breast (principal); Z78.0 Asymptomatic menopausal state; Z80.0 Family history of malignant neoplasm of digestive organs; Z95.0 Presence of cardiac pacemaker

== ENCOUNTER → 2019-01-08 | Outpatient (CLI) | payer MEDICARE, BC ==
[~2019-01-08] MED LIST changes: -/GLIM2TA OR; -/ONDA4TA PO; +AMAR1TAB5 OR; -ASPI1TAB PO; +ASPI81TA26 PO; +HYDR-3715 PO; -NORCOTAB PO; +ONDA-1 PO; -PRAD75CA3 PO; +PRAD75CA5 PO
--- NOTE | 2019-01-08 09:41 | REP ---
Chest x-ray: Two views. History: Cough. Shortness of breath. Comparison chest x-ray: October 25, 2018 and September 29, 2018. Findings: There is a bipolar pacemaker in the right heart via the left side as before. Heart is enlarged. Cardiothoracic ratio today is 53.6%. There is an implanted partially opaque device in the region of the left atrial appendage. This is suggestive of a septal defect closure device. There also appears to be coronary artery stent material. The aorta is slightly tortuous. The lung le are clear. Pleural angles are sharp. There are degenerative changes in the thoracic spine. Impression: Mild cardiomegaly with pacemaker. Implantable intracardiac device as described above. Otherwise no acute disease.
== END ==
LOC: M CLY 08:52
PROVIDERS: ATTEND Family Medicine
DX: I51.7 Cardiomegaly (principal); R05 Cough; R06.02 Shortness of breath; Z95.0 Presence of cardiac pacemaker
CPT/HCPCS: 71046; G0463

== ENCOUNTER → 2019-02-17 | Outpatient (CLI) | payer MEDICARE, BC, OTHER ==
[~2019-02-17] MED LIST changes: +ISOVUE-370 76% 100ML VIAL (Q9967) As Ordered ONE
--- NOTE | 2019-02-17 14:39 | REP ---
CT ANGIO HEAD: HISTORY: TIA. CONTRAST: Isovue 370, 100 mL. There is no aneurysm, arteriovenous malformation or atherosclerotic lesion. Major intracranial vessels are patent. The left vertebral artery is dominant. IMPRESSION: Normal CT ANGIO head. Electronically Signed by Chaim Badillo MD 02/17/2019 02:41 P
--- NOTE | 2019-02-17 14:51 | REP ---
CT ANGIO NECK: HISTORY: TIA. CONTRAST: Isovue 370, 100 mL. Calcified atherosclerotic plaque is present at the origins of the right external and internal carotid arteries. There is moderate stenosis of 50% of the right internal carotid artery at its origin. There is mild stenosis of 20% of the right external carotid artery at its origin. Calcified atherosclerotic plaque is present at the origin of the left internal carotid artery. There is mild stenosis of 25% of the left internal carotid artery at its origin. The origin of the left external carotid artery is normal. The vertebral arteries are patent. The left vertebral artery is dominant. Calcified atherosclerotic plaques are present at the origins of the subclavian arteries. There is no significant stenosis. The origins of the remaining greater vessels are normal. A 7 mm hypodensity is present in the left thyroid lobe. This most likely represents a cyst. IMPRESSION: 1. Moderate stenosis of 50% of the right internal carotid artery at its origin. 2. Mild stenosis of 25% of the left internal carotid artery at its origin. Electronically Signed by Chaim Badillo MD 02/17/2019 02:55 P
== END ==
LOC: M RAD 10:09
PROVIDERS: ATTEND Psychiatry & Neurology Neurology
DX: I65.23 Occlusion and stenosis of bilateral carotid arteries (principal)
CPT/HCPCS: 70496; 70498; Q9967

== ENCOUNTER → 2019-03-13 | Outpatient (REF) | payer MEDICARE, BC, OTHER ==
[~2019-03-13] MED LIST changes: -ISOVUE-370 76% 100ML VIAL (Q9967) As Ordered ONE
[2019-03-13 18:12] LABS: CALCIUM LEVEL 9.2 MG/DL (8.5-10.1)
[2019-03-13 18:27] LABS: TOTAL 25(OH) VITAMIN D 25.3 NG/ML (30.0-100.0)
== END ==
LOC: M LABDRAWC 16:19
PROVIDERS: ATTEND Internal Medicine Endocrinology, Diabetes & Metabolism
DX: E11.22 Type 2 diabetes mellitus with diabetic chronic kidney disease (principal); N18.9 Chronic kidney disease, unspecified; M80.08XD Age-related osteoporosis with current pathological fracture, vertebra(e), subsequent encounter for fracture with routine healing

== ENCOUNTER 2019-05-01 11:23 | Emergency (ER) | payer MEDICARE, BC, OTHER ==
[~2019-05-01] VITALS: Ht 177.8 cm; Wt 97.7 kg
[~2019-05-01 11:23] MED LIST changes: -TRAZ-160 PO; +TRAZ-252 PO; +TRAZ1TAB10 PO; -TRAZO50TA PO
[2019-05-01] MEDS ORDERED: PROL60SO SC (11:45)
[2019-05-01] MEDS ORDERED: XARE20TA PO (11:45)
--- NOTE | 2019-05-01 12:36 | REP ---
CHEST, PORTABLE: AP portable view of the chest is performed. Comparison 01/08/2019. There is no acute infiltrate. There is mild cardiomegaly. The mediastinal silhouette is unchanged. Left pacemaker is again noted. IMPRESSION: Mild cardiomegaly. No acute infiltrate. Electronically Signed by Avni Burgos MD 05/02/2019 02:56 P
[2019-05-01] MEDS ORDERED: IPRATROPIUM 0.5MG/ALBUTEROL 2.5MG INH SOL UD 3ML (DUONEB)(J7620) NEB ONE (12:45)
[2019-05-01] MEDS ORDERED: ALBUTEROL SULFATE 2.5 MG/0.5 ML INH NEB SOLN INH ONE (12:45)
[2019-05-01 12:53] LABS: BASO # 0.1 10^3/uL (0.0-0.2); BASO % 0.7 % (0.0-1.0); EOS # 0.1 10^3/uL (0.0-0.50); EOS % 0.7 % (0.0-3.0); HEMATOCRIT 41.3 % (36.0-47.0); HEMOGLOBIN 13.9 g/dl (12.0-15.5); LYMPH # 1.2 10^3/uL (1.5-4.5); LYMPH % 11.4 % (24.0-44.0); MEAN CORPUSCULAR HEMOGLOBIN 29.1 pg (27.0-33.0); MEAN CORPUSCULAR HGB CONC 33.7 g/dl (32.0-36.5); MEAN CORPUSCULAR VOLUME 86.4 fl (80.0-96.0); MONO # 0.7 10^3/uL (0.0-0.8); MONO % 6.9 % (0.0-5.0); NEUTROPHILS # 8.3 10^3/uL (1.8-7.7); NEUTROPHILS % 79.9 % (36.0-66.0); PLATELET COUNT, AUTOMATED 342 10^3/uL (150-450); RED BLOOD COUNT 4.78 10^6/uL (4.00-5.40); WHITE BLOOD COUNT 10.4 10^3/uL (4.0-10.0)
[2019-05-01 13:04] LABS: INR 1.08; PROTHROMBIN TIME 13.7 SECONDS (11.8-14.0)
[2019-05-01 13:33] LABS: ALBUMIN 3.3 GM/DL (3.2-5.2); ALT/SGPT 37 U/L (12-78); BILIRUBIN,DIRECT 0.2 MG/DL (0.0-0.2); BILIRUBIN,TOTAL 0.9 MG/DL (0.2-1.0); BLOOD UREA NITROGEN 16 MG/DL (7-18); CALCIUM LEVEL 8.7 MG/DL (8.5-10.1); CARBON DIOXIDE LEVEL 29 MEQ/L (21-32); CHLORIDE LEVEL 101 MEQ/L (98-107); CK-MB VALUE MASS < 1.0 NG/ML (<3.6); CPK CREATINE PHOSPHOKINASE 22 U/L (26-192); CREATININE FOR GFR 1.24 MG/DL (0.55-1.30); GLOMERULAR FILTRATION RATE 47.1 (>51); GLUCOSE, FASTING 383 MG/DL (70-100); LIPASE 42 U/L (73-393); MB/CK RELATIVE INDEX 4.55 (< OR =4); NT-PRO BNP 367 PG/ML (<125); POTASSIUM SERUM 4.6 MEQ/L (3.5-5.1); SODIUM LEVEL 135 MEQ/L (136-145); THYROID STIMULATING HORMONE 0.495 uIU/ML (0.358-3.740); TOTAL PROTEIN 6.5 GM/DL (6.4-8.2); TROPONIN I < 0.02 NG/ML (< 0.10)
[2019-05-01] MEDS ORDERED: ISOVUE-370 76% 100ML VIAL (Q9967) As Ordered ONE (13:45)
[2019-05-01] MEDS ORDERED: KETOROLAC 30 MG/ML VIAL (J1885) IV ONE (14:15)
--- NOTE | 2019-05-01 14:55 | REP ---
CT ANGIOGRAM CHEST: TECHNIQUE: Axial contrast enhanced images from the thoracic inlet to the upper abdomen using 100 mL Isovue 370 intravenous contrast material with multiplanar reformations. There is no CT evidence of pulmonary embolism. There is no thoracic aortic aneurysm or dissection. There is no mediastinal, hilar or chest wall lymphadenopathy. There is no pleural or pericardial effusion. The heart is mildly enlarged. There may be mild diffuse interstitial edema. The patient has had a prior cholecystectomy. There are degenerative changes of the spine. Pacemaker is noted. IMPRESSION: No CT evidence of pulmonary embolism or aortic dissection. Possible mild diffuse interstitial edema. Electronically Signed by Avni Burgos MD 05/03/2019 10:21 A
[2019-05-01] MEDS ORDERED: FUROSEMIDE 40 MG/4 ML VIAL (J1940) IV ONE (15:45)
[2019-05-01 16:00] VITALS: BP 147/67
--- NOTE | 2019-05-01 19:28 | ECGEPIP ---
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
== END 2019-05-01 16:23 | disposition home or self-care (01) ==
LOC: EDBD 11:23 → M ED 11:23
DX: J81.0 Acute pulmonary edema (principal); I51.7 Cardiomegaly; I48.91 Unspecified atrial fibrillation; I50.9 Heart failure, unspecified; I25.10 Atherosclerotic heart disease of native coronary artery without angina pectoris; E11.9 Type 2 diabetes mellitus without complications; I10 Essential (primary) hypertension; R56.9 Unspecified convulsions; Z98.61 Coronary angioplasty status; Z95.0 Presence of cardiac pacemaker; Z87.891 Personal history of nicotine dependence; Z79.82 Long term (current) use of aspirin; Z79.4 Long term (current) use of insulin; Z79.899 Other long term (current) drug therapy; Z88.2 Allergy status to sulfonamides; Z88.1 Allergy status to other antibiotic agents; Z88.8 Allergy status to other drugs, medicaments and biological substances; Z91.89 Other specified personal risk factors, not elsewhere classified
CPT/HCPCS: 71045; 71275; 80048; 80076; 82550; 82553; 83690; 83880; 84443; 84484; 85025; 85610; 93005; 93041; 94640; 94760; 96374; 96375; 99285; G0463; J1885; J1940; Q9967

== ENCOUNTER → 2019-05-20 | Outpatient (CLI) | payer MEDICARE, BC, OTHER ==
[~2019-05-20] MED LIST changes: +CONRAY-43 43% 50ML VIAL (Q9960) As Ordered ONE; +PROL60SO SC; +XARE20TA PO
--- NOTE | 2019-05-20 12:10 | REP ---
CT ARTHROGRAM LEFT HIP WITH INTRA-ARTICULAR CONTRAST: HISTORY: Pain in the left hip. Comparison radiographs are from August 17, 2018. TECHNIQUE: The injection procedure is performed and dictated separately. Helical CT scanning is acquired and sagittal and coronal MPR images are generated. Images are reviewed at bone and soft-tissue window settings. CT ARTHROGRAPHIC FINDINGS: There is good filling and opacification of the left hip articulation. Ligamentum teres has an intact appearance. No loose body is appreciated. There is an orthopedic fixation device coursing through the femoral neck with healed subcapital femoral neck fracture evident. There is no visible articular cartilaginous defect. There is no evidence of subcortical cyst formation. There is some tendon insertion site spurring on the greater trochanter posteriorly. No bony destructive lesion is seen. IMPRESSION: Status post pinning for healed subcapital fracture. No loose body or cartilaginous lesion is appreciated. Tendon insertion site spurring on the greater trochanter. Electronically Signed by Hector Murguia MD 05/20/2019 02:23 P
--- NOTE | 2019-05-20 16:44 | REP ---
Left hip arthrogram The procedure was performed under the direction supervision of Dr. Murguia. The benefits and risks including but not limited to pain, infection, bleeding and anaphylaxis were explained to the patient and informed consent was obtained. The left femoral neck was localized using fluoroscopic guidance. Skin was prepped and draped in a sterile fashion. 1% lidocaine was used as a local anesthetic. Using fluoroscopic guidance a 22 gauge spinal needle was inserted and advanced to the femoral neck. 11 ml of Conray 43 was injected into the joint. The needle was removed and the patient was taken to CT scan for postprocedural imaging. The patient tolerated the procedure well and there were no immediate complications. Less than 6 seconds of fluoro time was utilized for this procedure. Reviewed by BENNETT Ga 05/20/2019 04:33 P Electronically Signed by Hector Murguia MD 05/20/2019 04:35 P
== END ==
LOC: M RADPRO 08:30
PROVIDERS: ATTEND Orthopaedic Surgery
DX: M25.552 Pain in left hip (principal); Z87.81 Personal history of (healed) traumatic fracture
CPT/HCPCS: 27093; 73701; 77002; Q9960

== ENCOUNTER → 2019-06-09 | Outpatient (REF) | payer MEDICARE, OTHER ==
[~2019-06-09] MED LIST changes: -CONRAY-43 43% 50ML VIAL (Q9960) As Ordered ONE
[2019-06-10 12:27] LABS: BASO # 0.1 10^3/uL (0.0-0.2); BASO % 0.5 % (0.0-1.0); EOS # 0.1 10^3/uL (0.0-0.50); HEMATOCRIT 39.1 % (36.0-47.0); HEMOGLOBIN 12.6 g/dl (12.0-15.5); LYMPH # 1.4 10^3/uL (1.5-4.5); LYMPH % 12.7 % (24.0-44.0); MEAN CORPUSCULAR HEMOGLOBIN 28.9 pg (27.0-33.0); MEAN CORPUSCULAR HGB CONC 32.2 g/dl (32.0-36.5); MEAN CORPUSCULAR VOLUME 89.7 fl (80.0-96.0); MONO # 0.9 10^3/uL (0.0-0.8); MONO % 7.8 % (0.0-5.0); NEUTROPHILS # 8.7 10^3/uL (1.8-7.7); NEUTROPHILS % 77.6 % (36.0-66.0); PLATELET COUNT, AUTOMATED 501 10^3/uL (150-450); RED BLOOD COUNT 4.36 10^6/uL (4.00-5.40); WHITE BLOOD COUNT 11.3 10^3/uL (4.0-10.0)
[2019-06-10 12:36] LABS: BILIRUBIN,TOTAL 0.9 MG/DL (0.2-1.0); CALCIUM LEVEL 8.5 MG/DL (8.5-10.1); CREATININE FOR GFR 1.57 MG/DL (0.55-1.30); GLOMERULAR FILTRATION RATE 35.9 (>51); POTASSIUM SERUM 4.2 MEQ/L (3.5-5.1); TOTAL PROTEIN 6.8 GM/DL (6.4-8.2)
[2019-06-10 12:45] LABS: ERYTHROCYTE SEDIMENTATION RATE 64 mm/hr (0-30)
== END ==
LOC: M SFHCCLAY 15:04
PROVIDERS: ATTEND Family Medicine
DX: R50.9 Fever, unspecified (principal)
CPT/HCPCS: 36415; 80053; 85025; 85652; G0463

== ENCOUNTER → 2019-06-13 | Outpatient (CLI) | payer MEDICARE, BC, OTHER ==
[~2019-06-13] MED LIST changes: +CONRAY-43 43% 50ML VIAL (Q9960) As Ordered ONE
--- NOTE | 2019-06-15 22:51 | REP ---
Reason For Exam/Comment: Pain in left wrist Procedure: Left wrist CT arthrogram The procedure was performed by BENNETT Willams, under the direct supervision of Dr. Burgos. The benefits and risks including but not limited to pain, infection, bleeding and anaphylaxis were explained to the patient and informed consent was obtained both verbally and written. Directly prior to the start of the procedure, a formal timeout was completed in the procedure room. Technique: The radiocarpal joint was localized using fluoroscopic guidance. The skin was prepped and draped in the usual sterile fashion. Using fluoroscopic guidance a 25-gauge spinal needle was inserted and advanced to the radial carpal joint space . 4 mL of Conray 43 was injected to verify needle placement. The needle was removed and the patient was taken CT for post procedural imaging. Post procedural imaging revealed that the contrast was along the tendon sheath and not in the joint space, the patient will be brought back for repeat injection and CT. The patient tolerated the procedure well and there were no immediate complications. 0.3 minutes of fluoroscopy time was utilized for this procedure. Some fluoroscopic images are performed with last image hold technology. These images require no additional radiation. Reviewed by BENNETT Hameed 06/13/2019 05:13 P Electronically Signed by Avni Burgos MD 06/15/2019 10:42 P
== END ==
LOC: M RADPRO 09:32
PROVIDERS: ATTEND Orthopaedic Surgery
DX: M25.532 Pain in left wrist (principal)
CPT/HCPCS: 25246; 73201; 77002; Q9960

== ENCOUNTER 2019-06-16 15:07 | Emergency (ER) | payer MEDICARE, BC, OTHER ==
[~2019-06-16] VITALS: Ht 177.8 cm; Wt 97.7 kg
[~2019-06-16 15:07] MED LIST changes: -CONRAY-43 43% 50ML VIAL (Q9960) As Ordered ONE
[2019-06-16 15:08] VITALS: BP 131/62
== END 2019-06-16 16:14 | disposition left against medical advice (07) ==
LOC: M ED 15:07
DX: Z53.21 Procedure and treatment not carried out due to patient leaving prior to being seen by health care provider (principal)

== ENCOUNTER → 2019-06-20 | Outpatient (CLI) | payer MEDICARE, BC, OTHER ==
[~2019-06-20] MED LIST changes: +CONRAY-43 43% 50ML VIAL (Q9960) As Ordered ONE
--- NOTE | 2019-06-20 16:15 | REP ---
LEFT WRIST ARTHROGRAM The procedure was performed under the direct supervision of Dr. Murguia. The images were reviewed with Dr. Murguia. The benefits and risks including but not limited to pain infection bleeding and anaphylaxis were explained to the patient and informed consent was obtained. The left radial scaphoid joint space was localized using fluoroscopic guidance. The skin was prepped and draped in a sterile fashion. 1% lidocaine was used as a local anesthetic. Using fluoroscopic guidance a 25-gauge needle was inserted and advanced into the joint. 3 ml of a solution containing 5 ml of Conray 43 and 5 ml of sterile saline was injected. Images obtained during injection show filling of the radial carpal row. There is a fixation plate and screws in the volar aspect of the radius. There is a nonunion fracture of the ulnar styloid. The needle was removed and the patient has taken to CT scan for postprocedural imaging. The patient tolerated the procedure well and there were no immediate complications. 0.2 minutes of fluoroscopy time was utilized for this procedure. Reviewed by BENNETT Ga 06/20/2019 04:01 P Electronically Signed by Hector Murguia MD 06/20/2019 04:06 P
--- NOTE | 2019-06-20 16:21 | REP ---
CT arthrography left wrist with intraarticular contrast: History : Pain in the left wrist. Comparison CT study June 13, 2019. Comparison wrist series August 20, 2018. Technique: Initial injection and arthrography attempt on June 13, 2019 was suboptimal due to most of the contrast in the dorsal extra articular soft tissues. The injection procedure is performed and dictated separately. Helical CT scanning is acquired. 2 mm high resolution images are reformatted. Coronal and sagittal MPR images are generated. C T findings: There is good intra-articular contrast enhancement of the radiocarpal articulation. There is a screw plate fixation device in the distal radius along its palmar aspect transfixing that appears to be a healed distal radial fracture. There is articular cartilage thinning in the distal radius and opposing proximal pole of the navicula. There is widening of the navicular lunate interval consistent with degeneration of the navicular lunate ligament however, injected contrast does not appear to extend into the middle carpal row through this interval. There is an ununited ulnar styloid fracture. Injected contrast does not extend into the distal radial ulnar articulation consistent with integrity of the triangular fibrocartilage. There is a articular cartilage defect in the radial styloid consistent with a intra-articular component of the distal radial fracture. Injected contrast extends across this defect into a subcortical cyst in the distal radius which is tiny. No loose body is appreciated. No other finding. Impression: There is widening of the navicular lunate interval consistent with degeneration of the navicular lunate ligament. There is no evidence of triangular fibrocartilage tear. There are old post-traumatic changes in the distal radius and ulna and a screw plate fixation device is seen in the distal radius. There are chondromalacia changes in the distal radial carpal articulation and a small full-thickness articular cartilage defect is seen in the distal radius. Electronically Signed by Hector Murguia MD 06/20/2019 04:24 P
== END ==
LOC: M RADPRO 11:34
PROVIDERS: ATTEND Orthopaedic Surgery
DX: M24.131 Other articular cartilage disorders, right wrist (principal); M94.231 Chondromalacia, right wrist; Z98.890 Other specified postprocedural states
CPT/HCPCS: 25246; 73201; 77002; Q9960

== ENCOUNTER → 2019-07-02 | Outpatient (CLI) | payer MEDICARE, BC, OTHER ==
[~2019-07-02] MED LIST changes: -CONRAY-43 43% 50ML VIAL (Q9960) As Ordered ONE; +ONDA-83 PO; -ONDA4TAB5 PO
--- NOTE | 2019-07-02 19:23 | REP ---
REASON: Pyrexia and chest discomfort. COMPARISON: The latest prior 05/01/2019 There is new left CP angle blunting. The cardiomediastinal silhouette is unchanged. There is mild cardiomegaly. There is a dual-chamber bipolar pacemaker device in place status quo with AICD. The right lung is clear and stable. The right CP angle is sharp. The osseous structures are unchanged. IMPRESSION:New left CP angle blunting of uncertain etiology. Atelectasis/pneumonia/effusion. Correlate clinically with appropriate followup. Electronically Signed by James Hazel DO 07/02/2019 07:29 P
== END ==
LOC: M LRY 17:11
PROVIDERS: ATTEND Family Medicine
DX: I51.7 Cardiomegaly (principal); R50.9 Fever, unspecified; R07.89 Other chest pain; Z95.0 Presence of cardiac pacemaker
CPT/HCPCS: 71046; G0463

== ENCOUNTER → 2019-07-14 | Outpatient (CLI) | payer MEDICARE, BC, OTHER ==
[~2019-07-14] MED LIST changes: -ONDA-83 PO; +ONDA4TAB5 PO
--- NOTE | 2019-07-14 18:49 | REP ---
CERVICAL SPINE SERIES: Full cervical spine series was performed with 7 total views obtained including flexion and extension views. There is no compression fracture or malalignment. There is normal cervical lordosis. There is no prevertebral soft tissue swelling. There is mild spurring of C4 with a more moderate degree of spurring of C5-C7. There is mild disc space narrowing at C4-5 with moderate narrowing and subchondral sclerosis at C6-7. There is diffuse narrowing, sclerosis and spurring at the posterior facet joints. I do not see significant subluxation with flexion and extension. Uncovertebral spurring appears to cause at least a mild degree of bilateral neural foraminal narrowing at C6-7. IMPRESSION: Degenerative changes as discussed above, most significantly at C6-7 level. Electronically Signed by Avni Burgos MD 07/15/2019 10:06 A
--- NOTE | 2019-07-14 18:50 | REP ---
BILATERAL SHOULDER SERIES: Three views of each shoulder were performed. There is no acute fracture or dislocation. There is moderate narrowing and spurring at the acromioclavicular joints bilaterally. No bones lesions are seen. Left pacemaker device is incidentally noted. IMPRESSION: Moderate degenerative changes bilateral acromioclavicular joints. Electronically Signed by Avni Burgos MD 07/15/2019 10:06 A
--- NOTE | 2019-07-14 18:53 | REP ---
Chest x-ray: Two views. History: Cough. Comparison chest x-ray: July 02, 2019. Findings: There is a bipolar pacemaker in the right heart via the left side as before. There is a intracardiac defect closure device projecting within the heart as before. There is blunting of the left lateral pleural angle and increased density in front of and overlying the spine on the lateral film consistent with left lower lobe infiltrate. Lung le are otherwise clear. Impression: Persistent infiltrate left lower lobe distribution with blunting of the left lateral pleural angle. Findings consistent with pneumonia. Possibly with a small amount of left pleural fluid. Electronically Signed by Hector Murguia MD 07/15/2019 08:49 A
== END ==
LOC: M CLY 16:14
PROVIDERS: ATTEND Family Medicine
DX: M50.321 Other cervical disc degeneration at C4-C5 level (principal); M50.323 Other cervical disc degeneration at C6-C7 level; R91.8 Other nonspecific abnormal finding of lung field; M19.011 Primary osteoarthritis, right shoulder; M19.012 Primary osteoarthritis, left shoulder; M25.511 Pain in right shoulder; M25.512 Pain in left shoulder; R05 Cough; Z95.0 Presence of cardiac pacemaker
CPT/HCPCS: 71046; 72050; 73030; 80048; 83880; 87804; G0463

== ENCOUNTER → 2019-07-14 | Outpatient (REF) | payer MEDICARE, OTHER ==
[2019-07-14 19:32] LABS: CALCIUM LEVEL 8.6 MG/DL (8.8-10.2); CREATININE FOR GFR 1.21 MG/DL (0.55-1.30); GLOMERULAR FILTRATION RATE 48.3 (>45); POTASSIUM SERUM 4.4 MEQ/L (3.5-5.1)
== END ==
LOC: M LABDRAWC 17:02
PROVIDERS: ATTEND Internal Medicine Cardiovascular Disease
DX: I48.0 Paroxysmal atrial fibrillation (principal); I50.22 Chronic systolic (congestive) heart failure

== ENCOUNTER → 2019-08-27 | Outpatient (REF) | payer MEDICARE, OTHER | LOC: M LAB REF 13:15 | PROVIDERS: ATTEND Internal Medicine Nephrology | DX: N39.0 Urinary tract infection, site not specified (principal) ==

== ENCOUNTER → 2019-08-29 | Outpatient (REF) | payer MEDICARE, OTHER ==
[2019-08-29 12:47] LABS: BASO # 0.1 10^3/uL (0.0-0.2); EOS # 0.3 10^3/uL (0.0-0.5); HEMATOCRIT 40.2 % (36.0-47.0); HEMOGLOBIN 12.7 g/dl (12.0-15.5); LYMPH # 1.8 10^3/uL (1.5-5.0); LYMPH % 22.3 % (24.0-44.0); MEAN CORPUSCULAR HEMOGLOBIN 29.1 pg (27.0-33.0); MEAN CORPUSCULAR HGB CONC 31.6 g/dl (32.0-36.5); MEAN CORPUSCULAR VOLUME 92.2 fl (80.0-96.0); MONO # 0.5 10^3/uL (0.0-0.8); MONO % 6.7 % (0.0-5.0); NEUTROPHILS # 5.3 10^3/uL (1.5-8.5); NEUTROPHILS % 65.5 % (36.0-66.0); PLATELET COUNT, AUTOMATED 364 10^3/uL (150-450); RED BLOOD COUNT 4.36 10^6/uL (4.00-5.40); WHITE BLOOD COUNT 8.1 10^3/uL (4.0-10.0)
[2019-08-29 13:11] LABS: CALCIUM LEVEL 9.1 MG/DL (8.8-10.2); CREATININE FOR GFR 1.43 MG/DL (0.55-1.30); GLOMERULAR FILTRATION RATE 39.8 (>45); POTASSIUM SERUM 4.4 MEQ/L (3.5-5.1)
[2019-08-29 14:12] LABS: HEMOGLOBIN A1c 8.1 %
== END ==
LOC: M SFHCCLAY 09:19
PROVIDERS: ATTEND Family Medicine
DX: Z01.818 Encounter for other preprocedural examination (principal); M25.552 Pain in left hip; E11.65 Type 2 diabetes mellitus with hyperglycemia; I10 Essential (primary) hypertension

== ENCOUNTER → 2019-09-24 | Outpatient (REF) | payer MEDICARE, OTHER | LOC: M LABDRAWC 16:26 | PROVIDERS: ATTEND Nurse Practitioner Family | DX: M80.08XD Age-related osteoporosis with current pathological fracture, vertebra(e), subsequent encounter for fracture with routine healing (principal) ==

== ENCOUNTER → 2019-11-03 | Outpatient (REF) | payer MEDICARE, OTHER ==
[~2019-11-03] MED LIST changes: +ONDA-83 PO; -ONDA4TAB5 PO
[2019-11-04 11:38] LABS: HEMATOCRIT 47.8 % (36.0-47.0); HEMOGLOBIN 14.1 g/dl (12.0-15.5); MEAN CORPUSCULAR HGB CONC 29.5 g/dl (32.0-36.5); MEAN CORPUSCULAR VOLUME 94.8 fl (80.0-96.0); PLATELET COUNT, AUTOMATED 476 10^3/uL (150-450); RED BLOOD COUNT 5.04 10^6/uL (4.00-5.40); WHITE BLOOD COUNT 10.6 10^3/uL (4.0-10.0)
[2019-11-04 11:52] LABS: CALCIUM LEVEL 8.9 MG/DL (8.8-10.2); CREATININE FOR GFR 1.39 MG/DL (0.55-1.30); GLOMERULAR FILTRATION RATE 41.2 (>45); POTASSIUM SERUM 4.2 MEQ/L (3.5-5.1)
== END ==
LOC: M LABDRAWC 11:18
PROVIDERS: ATTEND Internal Medicine Cardiovascular Disease
DX: I47.2 Ventricular tachycardia (principal)

== ENCOUNTER 2019-11-28 10:09 | Inpatient (IN) | payer MEDICARE, OTHER, BC ==
[~2019-11-28] VITALS: Ht 177.8 cm; Wt 97.7 kg
[2019-11-28] MEDS ORDERED: NS 1,000 ML IV ONE ×2 (10:45→16:15)
[2019-11-28 11:07] LABS: BASO # 0.1 10^3/uL (0.0-0.2); BASO % 0.9 % (0.0-1.0); EOS # 0.2 10^3/uL (0.0-0.5); EOS % 3.3 % (0.0-3.0); HEMATOCRIT 40.8 % (36.0-47.0); HEMOGLOBIN 12.7 g/dl (12.0-15.5); LYMPH # 1.1 10^3/uL (1.5-5.0); LYMPH % 16.4 % (24.0-44.0); MEAN CORPUSCULAR HEMOGLOBIN 26.5 pg (27.0-33.0); MEAN CORPUSCULAR HGB CONC 31.1 g/dl (32.0-36.5); MONO # 0.5 10^3/uL (0.0-0.8); MONO % 6.8 % (0.0-5.0); NEUTROPHILS # 4.9 10^3/uL (1.5-8.5); NEUTROPHILS % 72.3 % (36.0-66.0); PLATELET COUNT, AUTOMATED 340 10^3/uL (150-450); WHITE BLOOD COUNT 6.8 10^3/uL (4.0-10.0)
[2019-11-28 11:23] LABS: ALBUMIN 3.4 GM/DL (3.2-5.2); ALT/SGPT 28 U/L (12-78); BILIRUBIN,DIRECT 0.2 MG/DL (0.0-0.2); BILIRUBIN,TOTAL 0.5 MG/DL (0.2-1.0); LIPASE 47 U/L (73-393); TOTAL PROTEIN 6.5 GM/DL (6.4-8.2)
[2019-11-28] MEDS ORDERED: ISOVUE-370 76% 100ML VIAL (Q9967) As Ordered ONE (11:31)
[2019-11-28] MEDS ORDERED: MORPHINE 2 MG/ML 1ML VIAL (J2270) IV ONE (12:00)
--- NOTE | 2019-11-28 12:06 | REP ---
CT of the abdomen and pelvis with IV contrast, without bowel contrast with right lower quadrant pain, guarding and rebound: There are no comparison abdomen/pelvis CT studies. The visualized lung le are unremarkable. The hepatic parenchyma is homogeneous. There are surgical clips in the gallbladder fossa. The pancreas, spleen, adrenals and kidneys are unremarkable except for a left renal lower pole Bosniak type 1 6.5 cm exophytic cyst. The abdominal aorta is unremarkable. There is no retroperitoneal adenopathy or mass. There is no bowel distension or obstruction. Pelvis: The appendix is not distended measuring 6 mm in transverse diameter and is otherwise unremarkable. The terminal ileum is unremarkable. The uterus and adnexa are unremarkable. There is no adenopathy or ascites. The pelvic bowel loops are unremarkable. There is no diverticulosis or diverticulitis. There is a left hip arthroplasty. The bladder is obscured by beam-hardening artifact from the arthroplasty. There is multilevel advanced degenerative disc disease throughout the lumbar spine and lumbar facet osteoarthritis. Impression: There is a cholecystectomy. The appendix, rule ileum, uterus and adnexa are unremarkable. There is no diverticulosis or diverticulitis. There is no ascites, adenopathy or mass. Left hip arthroplasty. Advanced degenerative disc disease in the lumbar spine. Electronically Signed by Avni Frazier MD 11/28/2019 11:58 A
--- NOTE | 2019-11-28 13:05 | REP ---
Pelvic sonography: History: Right-sided pain. Comparison is made with today's CT study. Sonographic findings: Transabdominal scanning demonstrates smooth bladder conley with incomplete bladder filling. Uterus and adnexal regions are not seen on transabdominal scanning. Transvaginal scanning demonstrates normal uterine dimension 6.2 x 2.8 x 3.7 cm. Endometrial echo is 0.2 cm thick and centrally placed. There is a Nabothian cyst in the cervix. No free fluid is seen. The right ovary measures 1.8 x 1.3 x 1.4 cm. No right ovarian mass or cyst is seen. Doppler flow is present in the right ovary. Left ovary measures 2.3 x 1.5 x 2.2 cm. There is a 1.5 x 1.4 x 1.2 cm cyst in the left ovary. Doppler flow is present in the left ovary. Resistive indices are 0.53 on the right and 0.48 on the left. Impression: 1.5 cm cyst left ovary. Small Nabothian cyst in the cervix. No significant abnormality. Electronically Signed by Hector Murguia MD 11/28/2019 01:31 P
[2019-11-28] MEDS ORDERED: ONDANSETRON 4MG/2ML VIAL (J2405) IV ONE (13:45)
[2019-11-28] MEDS ORDERED: MORPHINE 4 MG/ML 1ML VIAL/SYRINGE (J2270) IV ONE (14:00)
[2019-11-28 14:12] LABS: BASO # 0.1 10^3/uL (0.0-0.2); BASO % 0.7 % (0.0-1.0); EOS # 0.2 10^3/uL (0.0-0.5); EOS % 3.1 % (0.0-3.0); HEMATOCRIT 37.7 % (36.0-47.0); HEMOGLOBIN 12.2 g/dl (12.0-15.5); LYMPH # 1.3 10^3/uL (1.5-5.0); LYMPH % 19.1 % (24.0-44.0); MEAN CORPUSCULAR HEMOGLOBIN 27.2 pg (27.0-33.0); MEAN CORPUSCULAR HGB CONC 32.4 g/dl (32.0-36.5); MEAN CORPUSCULAR VOLUME 84.2 fl (80.0-96.0); MONO # 0.4 10^3/uL (0.0-0.8); MONO % 6.6 % (0.0-5.0); NEUTROPHILS # 4.7 10^3/uL (1.5-8.5); NEUTROPHILS % 70.4 % (36.0-66.0); PLATELET COUNT, AUTOMATED 336 10^3/uL (150-450); RED BLOOD COUNT 4.48 10^6/uL (4.00-5.40); WHITE BLOOD COUNT 6.7 10^3/uL (4.0-10.0)
[2019-11-28 14:42] LABS: ALBUMIN 3.2 GM/DL (3.2-5.2); ALT/SGPT 38 U/L (12-78); AMYLASE 23 U/L (25-115); BILIRUBIN,DIRECT 0.2 MG/DL (0.0-0.2); BILIRUBIN,TOTAL 0.5 MG/DL (0.2-1.0); BLOOD UREA NITROGEN 11 MG/DL (7-18); CALCIUM LEVEL 8.5 MG/DL (8.8-10.2); CARBON DIOXIDE LEVEL 27 MEQ/L (21-32); CHLORIDE LEVEL 109 MEQ/L (98-107); CREATININE FOR GFR 0.94 MG/DL (0.55-1.30); GLOMERULAR FILTRATION RATE > 60.0 (>45); GLUCOSE, FASTING 127 MG/DL (70-100); LIPASE 127 U/L (73-393); POTASSIUM SERUM 4.6 MEQ/L (3.5-5.1); SODIUM LEVEL 140 MEQ/L (136-145)
[2019-11-28] MEDS ORDERED: PERCOCET 5MG/325MG TAB PO PRN ×2 (16:15)
[2019-11-28] MEDS ORDERED: GLUCAGON FOR INJ 1 MG VIAL (J1610) SC PRN (16:30)
[2019-11-28] MEDS ORDERED: GLUCOSE 4 GM CHEW TABLET PO PRN (16:30)
[2019-11-28] MEDS ORDERED: DEXTROSE 50% 50 ML SYRINGE IV PRN (16:30)
[2019-11-28] MEDS: KETOROLAC 30 MG/ML VIAL (J1885) IV SCH (16:54)
[2019-11-28] MEDS ORDERED: ASPI325T36 PO (17:09)
[2019-11-28] MEDS ORDERED: ACET-897 PO (17:09)
[2019-11-28] MEDS ORDERED: LANTINJ4 SC (17:09)
[2019-11-28] MEDS ORDERED: BISO10TA14 PO (17:09)
[2019-11-28] MEDS ORDERED: VITA100054 PO (17:09)
[2019-11-28] MEDS ORDERED: TRAZ-186 PO (17:09)
[2019-11-28] MEDS ORDERED: TRUL10IN SC (17:09)
[2019-11-28 17:40] VITALS: BP 127/76
[2019-11-28 18:14] LABS: C REACTIVE PROTEIN QUANTITATIV < 0.30 MG/DL (0.00-0.30)
[2019-11-28] MEDS ORDERED: tiZANidine 4 MG TAB PO PRN (18:30)
[2019-11-28] MEDS ORDERED: ACETAMINOPHEN 500 MG TAB PO PRN (18:30)
[2019-11-28 19:11] LABS: ERYTHROCYTE SEDIMENTATION RATE 2 mm/hr (0-30)
--- NOTE | 2019-11-28 19:17 | HPE ---
DATE OF ADMISSION: 11/28/2019 CHIEF COMPLAINT: Right lower quadrant abdominal pain. HISTORY OF PRESENT ILLNESS: This is a 59-year-old female with a history of diabetes, congestive heart failure (CHF) with preserved ejection fraction, syncope, coronary artery disease, myocardial infarction, arthralgias, cardiomyopathy, hypertension, hyperlipidemia, seizures, depression, anxiety, pacer placement, six stents, migraines, left arm and hip fractures, atrial fibrillation, epilepsy, recent left hip arthroplasty, who presented to the emergency room with acute onset of right lower quadrant abdominal pain, which she describes as sharp, lasting for about 2 hours, accompanied with nausea without vomiting. The patient denies any fevers, chills, bright red blood per rectum, melena, black tarry stools. The patient had a similar episode of this kind of pain where it was sharp and crampy when she had her gallbladder disease. She had a gallstone removed. She denies any weight loss, but has had decrease in appetite. She presented to the emergency room for further evaluation. The patient was found to be afebrile, normotensive with systolic pressure of 120. CT of the abdomen and pelvis was unremarkable. Ultrasound of the ovaries showed an ovarian cyst. Complete blood count (CBC), metabolic panel, and liver function tests were within normal limits. Hospitalist was asked to admit for further evaluation of the patient's right lower quadrant abdominal pain. Urinalysis was unremarkable. The patient states that she had a colonoscopy previously by Dr. Alicia Milton in [place], which was negative, some colonic polyps, which were benign. No history of diverticular disease or diverticulitis in the past. The patient has had no melena or black tarry stools. The patient states that the abdominal pain is worse when she stands up, sits and walks; better when she lies down still. PAST MEDICAL HISTORY: As per history of present illness. PAST SURGICAL HISTORY: 1. Cholecystectomy. 2. Carpal tunnel release. 3. Cardiac catheterization. 4. Open fracture of the right forearm with scar revision of the right forearm. 5. Left hip replacement. 6. Heel spur of the right foot. 7. Colonoscopy. 8. Electroencephalogram (EEG). 9. Bilateral eye cataract surgery. 10. Left hip and wrist surgery. 11. In 2019 Watchman placement. 12. In 2019 hip fracture. 13. Heart ablation and pacer changed. ALLERGIES: BACITRACIN, LISINOPRIL, POLYMYXIN B, SULFA ANTIBIOTICS. SOCIAL HISTORY: Lives at home. Former smoker, quit more than 10 years, currently has no alcohol use. Currently unemployed. Previously worked at [employer] and [employer] in the past. FAMILY HISTORY: Mother with cerebral artery occlusion and cerebellar infarctions. Sister with malignant neoplasm. Father with sarcoma. Mother with hypertension, dementia, CVA. Grandparents with coronary artery disease, myocardial infarction, diabetes, CVA. One aunt with diabetes. Sister with rectal cancer. REVIEW OF SYSTEMS: As per history of present illness. 12-point system otherwise negative. HOME MEDICATIONS: - acetaminophen 500 mg four times a day as needed for pain - Xanax 0.25 mg twice a day - aspirin 325 mg daily - atorvastatin 80 mg at night - bisoprolol 20 mg daily - calcitriol 0.5 mg six times weekly - vitamin D 1000 units daily - Prolia 60 mg as directed - Cymbalta 30 mg twice a day - Flex pen before food and nightly - Lantus insulin 46 units at night and 44 units in the morning - nitroglycerin 0.4 mg as needed - Zofran 4 mg every 6 hours as needed - potassium 20 mEq daily - tizanidine 4 mg three times a day - trazodone 50 mg at night - calcium carbonate 600 mg twice a day - Trulicity 0.75 mg weekly - fish oil 1 gram twice a day PHYSICAL EXAMINATION: VITAL SIGNS: Temperature 97.5, pulse 65, respiratory rate 20, blood pressure 127/76, 90% on room air. The patient is awake, alert and oriented times three. Lying supine. No jugular venous distention (JVD). No thyromegaly. Speaks in full sentences. Anicteric sclerae. No jaundice. No cervical lymphadenopathy. Moist mucous membranes. LUNGS: Clear to auscultation. No wheezing, rales or rhonchi. HEART: S1, S2. Sinus rhythm. ABDOMEN: Soft and tender in the right lower quadrant. No rebound or guarding. Positive bowel sounds times four quadrants. EXTREMITIES: Positive 1+ pitting edema. LABORATORY DATA: White count 6.7, hemoglobin 12, hematocrit 37, platelet count 336, 70% neutrophils, 3% eosinophils. Sodium 140, potassium 4.6, chloride 109, bicarbonate 27, BUN 11, creatinine 0.94, glucose 127, calcium 8.5, total bilirubin 0.5, direct bilirubin 0.2, AST 67, ALT 38, alkaline phosphatase 109, total protein 6, albumin 3.2, amylase 23, lipase 127. Urinalysis showed 2+ leukocyte esterase, 2 WBCs, negative bacteria. Urine culture pending. CT of the abdomen and pelvis showed no acute pelvic pathology, cholecystectomy, spinal and lumbar osteoarthritis. Appendix ileum, uterus, adnexa unremarkable. Left hip arthroplasty, advanced degenerative disc disease in the lumbar spine. Pelvic ultrasound 11/28/2019 showed left ovarian cyst, 1.5 cm. Right ovary has no mass or cyst. Doppler flow present in both right and left ovaries. Small nabothian cyst in the cervix. No significant abnormalities. ASSESSMENT AND PLAN: This is a 59-year-old female who presented with acute onset of right lower quadrant abdominal pain. The patient is afebrile without chills. Negative CT of the abdomen and pelvis and ultrasound. Normal lab work. IMPRESSION: 1. Right lower quadrant abdominal pain. The patient will be admitted for observation, monitor for any fevers, worsening abdominal pain. Surgical consultation if the patient worsens clinically. Continue with full supportive care with pain medications. Judicious monitoring for fluid overload with a trial of IV fluids times one liter in light of the patient's history of congestive heart failure (CHF). The patient will be kept on her home medication for her chronic medical issues. We will check pro calcitonin. Await urine culture results and supportive care. 2. Type 2 diabetes. Consistent carbohydrate diet. Insulin sliding scale with coverage. Resume home long-acting insulin. 3. Congestive heart failure (CHF). Judicious IV fluid hydration. Hold diuretics for now. 4. History of coronary artery disease and myocardial infarction. Continue on home medications of aspirin, Lipitor, and Zebeta. 5. Vitamin D deficiency. Continue on vitamin D. 6. Anxiety. Continue on Xanax. 7. Dyslipidemia. Continue on Lipitor. 8. Depression. Continue on Cymbalta. DISPOSITION: Discharge in the morning if improved. MTDD
[2019-11-28] MEDS ORDERED: LEVEMIR (INSULIN DETEMIR) 1 UNITS/0.01ML SC SCH (21:00)
[2019-11-28] MEDS ORDERED: ATORVASTATIN 20 MG TAB PO SCH (21:00)
[2019-11-28] MEDS ORDERED: traZODone 50 MG TAB PO SCH (21:00)
[2019-11-28] MEDS: ALPRAZolam 0.25 MG TAB PO SCH (21:25)
[2019-11-28] MEDS: DULoxetine 30 MG CAP (CYMBALTA) PO SCH (21:25)
[2019-11-28 23:02] LABS: CK-MB VALUE MASS 1.3 NG/ML (<3.6); MB/CK RELATIVE INDEX 4.48 (< OR =4); TROPONIN I 0.02 NG/ML (< 0.10)
[2019-11-29] MEDS: KETOROLAC 30 MG/ML VIAL (J1885) IV SCH ×2 (00:38→06:00)
[2019-11-29 06:03] VITALS: BP 127/65
[2019-11-29 07:20] LABS: BASO # 0.1 10^3/uL (0.0-0.2); EOS # 0.3 10^3/uL (0.0-0.5); EOS % 5.2 % (0.0-3.0); HEMATOCRIT 37.3 % (36.0-47.0); HEMOGLOBIN 11.9 g/dl (12.0-15.5); LYMPH # 0.9 10^3/uL (1.5-5.0); LYMPH % 16.7 % (24.0-44.0); MEAN CORPUSCULAR HGB CONC 31.9 g/dl (32.0-36.5); MEAN CORPUSCULAR VOLUME 84.6 fl (80.0-96.0); MONO # 0.4 10^3/uL (0.0-0.8); MONO % 6.9 % (0.0-5.0); NEUTROPHILS # 3.6 10^3/uL (1.5-8.5); NEUTROPHILS % 69.6 % (36.0-66.0); PLATELET COUNT, AUTOMATED 286 10^3/uL (150-450); RED BLOOD COUNT 4.41 10^6/uL (4.00-5.40); WHITE BLOOD COUNT 5.2 10^3/uL (4.0-10.0)
[2019-11-29] MEDS ORDERED: SENO8.6T10 PO (07:46)
[2019-11-29] MEDS ORDERED: PERCOCET PO (07:46)
[2019-11-29 07:49] LABS: ALBUMIN 2.9 GM/DL (3.2-5.2); ALT/SGPT 301 U/L (12-78); BILIRUBIN,TOTAL 0.9 MG/DL (0.2-1.0); BLOOD UREA NITROGEN 10 MG/DL (7-18); CALCIUM LEVEL 8.4 MG/DL (8.8-10.2); CARBON DIOXIDE LEVEL 25 MEQ/L (21-32); CHLORIDE LEVEL 111 MEQ/L (98-107); GLOMERULAR FILTRATION RATE > 60.0 (>45); GLUCOSE, FASTING 64 MG/DL (70-100); LIPASE 65 U/L (73-393); MAGNESIUM LEVEL 2.2 MG/DL (1.8-2.4); POTASSIUM SERUM 4.4 MEQ/L (3.5-5.1); SODIUM LEVEL 141 MEQ/L (136-145); TOTAL PROTEIN 5.5 GM/DL (6.4-8.2)
[2019-11-29 07:50] LABS: CK-MB VALUE MASS 1.1 NG/ML (<3.6); CPK CREATINE PHOSPHOKINASE 21 U/L (26-192); MB/CK RELATIVE INDEX 5.24 (< OR =4); TROPONIN I < 0.02 NG/ML (< 0.10)
[2019-11-29] MEDS: DULoxetine 30 MG CAP (CYMBALTA) PO SCH (08:13)
[2019-11-29 08:14] VITALS: BP 127/65
[2019-11-29] MEDS: ALPRAZolam 0.25 MG TAB PO SCH (08:14)
[2019-11-29] MEDS ORDERED: POTASSIUM CHLORIDE 10 MEQ SR TABLET PO SCH (09:00)
[2019-11-29] MEDS ORDERED: VITAMIN D 1,000 INTERNATIONAL UNITS TABLET PO SCH (09:00)
[2019-11-29] MEDS ORDERED: bisoproloL fumarate 10 MG TAB PO SCH (09:00)
[2019-11-29] MEDS ORDERED: LEVEMIR (INSULIN DETEMIR) 1 UNITS/0.01ML SC SCH (09:00)
--- NOTE | 2019-11-29 19:46 | DSES ---
DATE OF ADMISSION: 11/28/2019 DATE OF DISCHARGE: 11/29/2019 PRIMARY DISCHARGE DIAGNOSES: 1. Right lower quadrant abdominal pain. Appendicitis has been ruled out. No etiology found. 2. History of coronary artery disease (CAD). 3. Myocardial infarction (NE). 4. Vitamin D deficiency. 5. Anxiety. 6. Dyslipidemia. 7. Depression. 8. Type 2 diabetes. 9. Congestive heart failure, compensated. DISCHARGE MEDICATIONS: - Percocet 1 tablet every 4 hours as needed, maximum daily dose of 6 tablets every 4 hours, 3 day supply, 18 tablets. - Senokot 1 tablet by mouth twice a day as needed for constipation. - acetaminophen 500 mg four times a day as needed - alprazolam 0.25 mg twice a day - aspirin 325 mg daily - atorvastatin 80 mg at bedtime - Bisoprolol 20 mg daily - calcitriol 0.5 mg six times a week - calcium 600 mg twice a day - vitamin D 1000 units daily - Prolia 60 mg as directed - Trulicity 0.75 mg weekly - duloxetine 30 mg twice a day - Lantus insulin 44 units every morning, 46 units at bedtime - nitroglycerin as needed - fish oil 1 tablet twice a day - Zofran 4 mg as needed every 6 hours - potassium 20 mEq daily - tizanidine 4 mg three times a day - trazodone 50 mg at bedtime The patient is to follow up with primary care physician as outpatient on Sunday, to be referred to a welcome center agent for further evaluation of patient's ovarian cyst if persistent symptoms. HOSPITAL COURSE: This is a 59-year-old female who presented to the emergency room with onset of right lower quadrant pain that lasted for about two hours. She described it as sharp and achy when she stands up and walks around. No fever, chills, nausea or vomiting at home. In the emergency room (ER), CT abdomen and pelvis was unremarkable. Ultrasound of the ovaries showed ovarian cyst. She was evaluated by general surgery, Dr. Loco, who felt that this was not appendicitis. White count was normal. Sedimentation rate was normal at 2. CRP less than 0.3. Patient was admitted for pain control. Urinalysis was negative. The patient had symptomatic relief with Percocet and Toradol and was subsequently discharged in stable condition. PHYSICAL EXAMINATION ON DISCHARGE: Temperature 98.1, pulse 69, respiratory rate 18, blood pressure 127/65, 93% on room air. GENERAL: Awake, alert, oriented, answering questions appropriately. Anicteric sclerae. No jaundice. No jugular venous distention (JVD). No thyromegaly. Moist mucous membranes. LUNGS: Clear to auscultation. No wheezing, rales or rhonchi. HEART: S1, S2. Sinus rhythm. ABDOMEN: Soft, nontender, nondistended. Positive bowel sounds. Obese abdomen. EXTREMITIES: No cyanosis or clubbing. LABORATORY DATA: White count 5.2, hemoglobin 11, hematocrit 37, platelet count 286. Sodium 141, potassium 4.4, chloride 111, bicarbonate 25, BUN 10, creatinine 0.9, glucose of 64. AST 350, ALT 301, alkaline phosphatase 196. Troponin less than 0.02. Lipase at 65. Amylase of 23. C-reactive protein less than 0.3 Urine culture: No growth. CT abdomen and pelvis 11/28/2019: Cholecystectomy. Appendix, ileum, uterus, adnexa are unremarkable. No diverticulosis or diverticulitis. No ascites, adenopathy or mass. Left hip arthroplasty. Advanced degenerative disc disease in the lumbar spine. Pelvic ultrasound 11/28/2019: 1.5 cm left ovary, small nabothian cyst in the cervix. No significant abnormality. Time spent on discharge: 30 minutes. [facility]
== END 2019-11-29 12:00 | disposition home or self-care (01) | DRG 392 ==
LOC: EDBD 10:09 → M ED 10:09 → M ED INP 16:15 → ENRESERV 16:46 → M MS5PR 17:23
PROVIDERS: ADMIT General Practice; ATTEND General Practice
DX: R10.31 Right lower quadrant pain (principal); I50.30 Unspecified diastolic (congestive) heart failure; I42.9 Cardiomyopathy, unspecified; I13.0 Hypertensive heart and chronic kidney disease with heart failure and stage 1 through stage 4 chronic kidney disease, or unspecified chronic kidney disease; E11.22 Type 2 diabetes mellitus with diabetic chronic kidney disease; R55 Syncope and collapse; I25.10 Atherosclerotic heart disease of native coronary artery without angina pectoris; I25.2 Old myocardial infarction; M25.50 Pain in unspecified joint; E78.5 Hyperlipidemia, unspecified; G40.909 Epilepsy, unspecified, not intractable, without status epilepticus; F32.9 Major depressive disorder, single episode, unspecified; F41.9 Anxiety disorder, unspecified; Z95.0 Presence of cardiac pacemaker; Z95.1 Presence of aortocoronary bypass graft; G43.909 Migraine, unspecified, not intractable, without status migrainosus; Z87.81 Personal history of (healed) traumatic fracture; I48.91 Unspecified atrial fibrillation; Z96.642 Presence of left artificial hip joint; Z90.49 Acquired absence of other specified parts of digestive tract; Z98.41 Cataract extraction status, right eye; Z98.42 Cataract extraction status, left eye; Z88.1 Allergy status to other antibiotic agents; Z88.2 Allergy status to sulfonamides; Z88.8 Allergy status to other drugs, medicaments and biological substances; Z87.891 Personal history of nicotine dependence; Z79.4 Long term (current) use of insulin; E55.9 Vitamin D deficiency, unspecified; N18.3 Chronic kidney disease, stage 3 (moderate)

== ENCOUNTER → 2019-12-24 | Outpatient (REF) | payer MEDICARE, OTHER ==
[~2019-12-24] MED LIST changes: +ACET-897 PO; +ASPI325T36 PO; +BISO10TA14 PO; +PERCOCET PO; +SENO8.6T10 PO; +TRAZ-186 PO; +TRUL10IN SC; +VITA100054 PO
[2019-12-24 17:18] LABS: CALCIUM LEVEL 9.5 MG/DL (8.8-10.2); CREATININE FOR GFR 1.39 MG/DL (0.55-1.30); GLOMERULAR FILTRATION RATE 41.2 (>45); POTASSIUM SERUM 4.5 MEQ/L (3.5-5.1)
== END ==
LOC: M LABDRAWC 16:12
PROVIDERS: ATTEND Internal Medicine Cardiovascular Disease
DX: I50.9 Heart failure, unspecified (principal); I48.91 Unspecified atrial fibrillation

== ENCOUNTER → 2020-02-19 | Outpatient (REF) | payer MEDICARE, OTHER ==
[2020-02-19 16:52] LABS: CREATININE FOR GFR 1.65 MG/DL (0.55-1.30); GLOMERULAR FILTRATION RATE 33.8 (>45); POTASSIUM SERUM 4.8 MEQ/L (3.5-5.1)
== END ==
LOC: M LABDRAWC 15:58
PROVIDERS: ATTEND Internal Medicine Cardiovascular Disease
DX: I42.9 Cardiomyopathy, unspecified (principal); I50.22 Chronic systolic (congestive) heart failure

== ENCOUNTER → 2020-02-24 | Outpatient (CLI) | payer MEDICARE, OTHER ==
--- NOTE | 2020-02-24 09:30 | REP ---
CHEST, TWO VIEWS: Two views of the chest performed and compared to a prior study of 07/14/2019. There is no acute infiltrate. Previously noted left pleural effusion has resolved. The heart is normal in size. The mediastinal silhouette is unremarkable. Left dual-lead pacemaker is again noted. IMPRESSION: No active pulmonary disease. Electronically Signed by Avni Burgos MD 02/24/2020 09:42 A
== END ==
LOC: M CLY 08:39
PROVIDERS: ATTEND Family Medicine
DX: R05 Cough (principal); R79.81 Abnormal blood-gas level; Z95.0 Presence of cardiac pacemaker

== ENCOUNTER → 2020-03-26 | Outpatient (REF) | payer MEDICARE, OTHER ==
[2020-03-26 12:44] LABS: CALCIUM LEVEL 9.4 MG/DL (8.8-10.2)
[2020-03-26 13:02] LABS: TOTAL 25(OH) VITAMIN D 45.5 NG/ML (30.0-100.0)
== END ==
LOC: M LABDRAWC 11:26
PROVIDERS: ATTEND Nurse Practitioner Family
DX: M81.0 Age-related osteoporosis without current pathological fracture (principal)

== ENCOUNTER → 2020-04-13 | Outpatient (REF) | payer MEDICARE, OTHER ==
[2020-04-13 17:07] LABS: CALCIUM LEVEL 8.4 MG/DL (8.8-10.2); CREATININE FOR GFR 1.11 MG/DL (0.55-1.30); GLOMERULAR FILTRATION RATE 53.4 (>45); POTASSIUM SERUM 3.8 MEQ/L (3.5-5.1)
== END ==
LOC: M LABDRAWC 15:51
PROVIDERS: ATTEND Internal Medicine Cardiovascular Disease
DX: I50.22 Chronic systolic (congestive) heart failure (principal)

== ENCOUNTER → 2020-04-21 | Outpatient (CLI) | payer MEDICARE, BC ==
--- NOTE | 2020-04-21 14:47 | REP ---
Clinical: Back / flank pain. Technique: Real time silva scale and color ultrasound examination using curved array transducer. Findings: The kidneys are relatively normal in reniform shape, size, and parenchymal echo texture without hydronephrosis, nephrolithiasis, or perinephric stranding. Right kidney measures 10.3 x 5.2 x 5.6 cm without cyst. Left kidney measures 10.2 x 4.9 x 4.2 cm and includes 7.3 x 4.2 x 6.5 cm simple mid pole cyst. Vascularity to the bilateral kidneys appears relatively normal. Impression: 1. Large simple left renal cyst.
== END ==
LOC: M PLAIMG 13:53
PROVIDERS: ATTEND Internal Medicine Nephrology
DX: N28.1 Cyst of kidney, acquired (principal); M54.5 Low back pain

== ENCOUNTER → 2020-04-27 | Outpatient (POV) | payer MEDICARE, BC, OTHER ==
[~2020-04-27] MED LIST changes: +PANT40TA29 PO; -PANT40TA3 PO
--- NOTE | 2020-04-28 09:34 | IRCOV ---
[facility] IR Consult Office Visit IR Consult Office Visit DATE: Apr 27, 2020 Patient agreed to this telephone consultation. Duration of call 15 minutes. REASON FOR CONSULTATION/CHIEF COMPLAINT: Recurrent left renal cyst HISTORY OF PRESENT ILLNESS: 59 year old female with CKD, cardiac disease and diabetes presents with recurrent left renal cyst. She initially presented with left flank pain in 2018 at which time the cyst was discovered and drained by [facility] in October 2018. Pain resolved post drainage. Last couple of months, the pain has returned. No fevers or chills. No hematuria. No dialysis. No history of cancer. No change in appetite or weight loss. ALLERGIES: Please see below. HOME MEDICATIONS: Please see below. PAST MEDICAL HISTORY: CKD DM Watchman device Cardiac stents 2009 CHF CAD SC arthralgias cardiomyopathy hypertension hyperlipidemia seizures depression anxiety, migraines left arm and hip fractures atrial fibrillation PAST SURGICAL HISTORY: Cholecystectomy. Carpal tunnel release. Cardiac catheterization. Open fracture of the right forearm with scar revision of the right forearm. Left hip replacement. Heel spur of the right foot. Colonoscopy. Electroencephalogram (EEG). Bilateral eye cataract surgery. Left hip and wrist surgery. In 2019 Watchman placement. In 2019 hip fracture. Heart ablation and pacer changed. FAMILY HISTORY: Non contributory SOCIAL HISTORY: Ex smoker. Quit > 10 years ago. Denies alcohol or drugs. REVIEW OF SYSTEMS: Otherwise negative PHYSICAL EXAMINATION: No video on patient side LABORATORY DATA: 11/29/19 Hgb 11.9 HCT 37.3 WBC 5.2 PLT 286 04/13/20 Na 138 K 3.8 BUN 11 Creatinine 1.11 IMAGING: I personally reviewed the CT abdomen with contrast from 11/28/19. There is a 6 x 7 cm cyst arising off the left kidney which measures 7 HU without enhancing solid components. I also reviewed the US kidney performed 04/21/20. There is a 6 cm fully hypoechoic lesion arising of the left kidney with through transmission in keeping with a cyst. ASSESSMENT/PLAN: 59 year old female with recurrent and symptomatic left renal cyst. Patient is a good candidate for cyst drainage and sclerotherapy. This will require back to back sessions with the goal being less chance of cyst recurrence and/or cyst obliteration. She has baseline risk of forming future cysts in the same or other kidney. We discussed the benefits and risks of the procedure and patient would like to proceed. We will schedule the patient for the procedure. I spent 15 minutes in consultation with the patient. Thank you for this referral. cc Dr. Simon Allergies Coded Allergies: bacitracin (Verified Allergy, Intermediate, raised rash, 05/01/19) neomycin (Verified Allergy, Intermediate, raised rash, 05/01/19) nickel (Verified Allergy, Intermediate, raised rash, 05/01/19) polymyxin B (Verified Allergy, Intermediate, raised rash, 05/01/19) Sulfa (Sulfonamide Antibiotics) (Verified Adverse Reaction, Intermediate, tachycardia, 05/01/19) levetiracetam (Verified Adverse Reaction, Intermediate, tachycardia, 05/01/19) lisinopril (Verified Adverse Reaction, Intermediate, tachycardia, 05/01/19) Home Medications Scheduled Alprazolam (Alprazolam), 0.25 MG PO BID, (Reported) Aspirin (Aspirin EC), 325 MG PO DAILY, (Reported) Atorvastatin Calcium (Atorvastatin Calcium), 80 MG PO QHS, (Reported) Bisoprolol Fumarate (Bisoprolol Fumarate), 20 MG PO DAILY, (Reported) Calcitriol (Calcitriol), 0.5 MCG PO 6XWK, (Reported) Calcium Carbonate (Calcium), 600 MG PO BID, (Reported) Cholecalciferol (Vitamin D3) (Vitamin D3), 1,000 UNIT PO DAILY, (Reported) Denosumab Injection (Prolia), 60 MG SC ASDIRECTED, (Reported) Dulaglutide (Trulicity), 0.75 MG SC QWEEK, (Reported) Duloxetine Hcl (Cymbalta), 30 MG PO BID, (Reported) Insulin Aspart (Novolog Flexpen), 1 DOSE SC ACHS, (Reported) Insulin Glargine,Hum.rec.anlog (Lantus Solostar), 44 UNIT SC QAM, (Reported) Insulin Glargine,Hum.rec.anlog (Lantus Solostar), 46 UNITS SC QHS, (Reported) Showell-3 Fatty Acids/Fish Oil (Fish Oil 1,000 mg Capsule), 1,000 MG PO BID, (Reported) Potassium Chloride (K-Tab ER), 20 MEQ PO DAILY, (Reported) Trazodone HCl (Trazodone HCl), 50 MG PO QHS, (Reported) Scheduled PRN Acetaminophen (Tylenol Extra Strength), 500 MG PO QID PRN for PAIN / FEVER, (Reported) Nitroglycerin (Nitroglycerin), 0.4 MG SL NITRO PRN for CHEST PAIN, (Reported) Ondansetron HCl (Ondansetron HCl), 4 MG PO Q6H PRN for NAUSEA, (Reported) Oxycodone/Acetaminophen (Oxycodone-Acetaminophen 5-325), 1 TAB PO Q4HP PRN for MILD/MODERATE PAIN (PS 1-7) Sennosides/Docusate Sodium (Senokot-S Tablet), 1 TAB PO BIDP PRN for CONSTIPATION Tizanidine HCl (Tizanidine HCl), 4 MG PO TID PRN for MUSCLE SPASMS, (Reported) Trazodone HCl (Trazodone HCl), 50 MG PO QHS PRN for SLEEP, (Reported) NEELAM ALCALA MD Apr 28, 2020 09:34
== END ==
LOC: M IRPOV 09:15
PROVIDERS: ATTEND Radiology Diagnostic Radiology
DX: N28.1 Cyst of kidney, acquired (principal); N18.9 Chronic kidney disease, unspecified; E11.22 Type 2 diabetes mellitus with diabetic chronic kidney disease; I50.9 Heart failure, unspecified; I25.10 Atherosclerotic heart disease of native coronary artery without angina pectoris; I25.2 Old myocardial infarction; I42.9 Cardiomyopathy, unspecified; I48.91 Unspecified atrial fibrillation; E78.5 Hyperlipidemia, unspecified; R56.9 Unspecified convulsions; F32.9 Major depressive disorder, single episode, unspecified; F41.9 Anxiety disorder, unspecified; G43.909 Migraine, unspecified, not intractable, without status migrainosus; Z95.5 Presence of coronary angioplasty implant and graft; Z87.81 Personal history of (healed) traumatic fracture; Z96.1 Presence of intraocular lens; Z87.891 Personal history of nicotine dependence; Z79.899 Other long term (current) drug therapy; Z79.4 Long term (current) use of insulin

== ENCOUNTER → 2020-05-05 | Outpatient (CLI) | payer MEDICARE, BC, OTHER ==
[~2020-05-05] MED LIST changes: +DOXYCYCLINE HYCLATE 100MG/10ML VIAL XX ONE; +ISOVUE-300 61% 50ML VIAL As Ordered ONE; +LIDOCAINE 1% MDV 20ML VIAL As Ordered ONE; +MIDAZOLAM INJ 2MG/2ML VIAL (J2250 PER 1MG) As Ordered ONE; +ONDANSETRON 4MG/2ML VIAL As Ordered ONE; -PANT40TA29 PO; +PANT40TA3 PO; +PROMETHAZINE INJ 25 MG/ML VIAL (J2550) As Ordered ONE; +diphenhydrAMINE 50MG/ML VIAL (J1200) As Ordered ONE; +fentaNYL 100 MCG/2 ML INJECTION (J3010) As Ordered ONE
[2020-05-05 13:58] LABS: HEMATOCRIT 44.7 % (36.0-47.0); HEMOGLOBIN 14.4 g/dl (12.0-15.5); MEAN CORPUSCULAR HEMOGLOBIN 27.4 pg (27.0-33.0); MEAN CORPUSCULAR HGB CONC 32.2 g/dl (32.0-36.5); MEAN CORPUSCULAR VOLUME 85.1 fl (80.0-96.0); PLATELET COUNT, AUTOMATED 341 10^3/uL (150-450); RED BLOOD COUNT 5.25 10^6/uL (4.00-5.40); WHITE BLOOD COUNT 9.3 10^3/uL (4.0-10.0)
[2020-05-05 17:13] VITALS: BP 125/61
--- NOTE | 2020-05-06 08:47 | REP ---
IR Renal cyst aspiration IR Renal cystogram. IR Ultrasound guided left renal cyst access. IR Moderate sedation. Ultrasound left kidney. Clinical information: Recurrent left renal cyst. Left flank pain. Presents for aspiration and sclerotherapy. Physician: Dr. Duke. Procedure: The patient was advised of the benefits, risks and alternatives of the procedure and informed consent was obtained. The time-out was performed with verification of the patient's name, MRN, site of procedure and type of procedure to be performed. The patient was positioned in the prone position on the angiographic table. The site was prepped and draped in the usual sterile fashion. Moderate sedation was performed by the physician including the presence of an independent trained observer who assisted in monitoring the patient's level of consciousness and physiologic status. Following the administration of Fentanyl and Versed the physician spent 60 minutes continuous face to face time with the patient. A knot tying operator radiograph reveals no gross abnormality. Ultrasound demonstrates large left renal cyst arising exophytically off the left kidney. The anticipated puncture site was anesthetized with lidocaine. Under ultrasound guidance, the left renal cyst was accessed with a 18 gauge Chiba needle. Contrast was injected through the needle and this demonstrates the cyst cavity. No communication with the renal collecting system. An 035 wire was advanced through the needle into the renal cyst under fluoroscopy guidance. The needle was removed over the wire. The tract was dilated with an 8-Montenegrin dilator. An 8-Montenegrin catheter was advanced over the wire but could not be passed into the cyst. Repeat ultrasound of the left renal cyst demonstrated leakage from this cyst and fluid around the cyst. The cyst is decompressed. Due to retroperitoneal leakage from the cyst, sclerotherapy cannot be performed as this would cause retroperitoneal irritation. The wire was removed. Pressure held hemostasis achieved and a sterile dressing was applied to the site. The patient tolerated the procedure well and was returned to PRU in stable condition. EBL: Less than 5 ml. Complications: None. Impression: 1. Ultrasound left flank demonstrates large left renal cyst. 2. Successful cyst access and decompression. 3. Due to retroperitoneal decompression and leakage from the cyst, sclerotherapy could not be performed. Patient will be followed up in next weeks clinic. Thank you this referral. Cc Dr. Simon Electronically Signed by Karina Duke MD 05/06/2020 08:46 A
== END ==
LOC: M IRPRO 12:00
PROVIDERS: ATTEND Radiology Diagnostic Radiology
DX: N28.1 Cyst of kidney, acquired (principal); R10.9 Unspecified abdominal pain
CPT/HCPCS: 36415; 50390; 74470; 85027; 99152; 99153; C1729; C1769; C1887; C1894; J1200; J2250; J2405; J3010; Q9967

== ENCOUNTER → 2020-05-25 | Outpatient (CLI) | payer MEDICARE, BC, OTHER ==
[~2020-05-25] MED LIST changes: -DOXYCYCLINE HYCLATE 100MG/10ML VIAL XX ONE; -ISOVUE-300 61% 50ML VIAL As Ordered ONE; -LIDOCAINE 1% MDV 20ML VIAL As Ordered ONE; -MIDAZOLAM INJ 2MG/2ML VIAL (J2250 PER 1MG) As Ordered ONE; -ONDANSETRON 4MG/2ML VIAL As Ordered ONE; +PANT40TA29 PO; -PANT40TA3 PO; -PROMETHAZINE INJ 25 MG/ML VIAL (J2550) As Ordered ONE; -diphenhydrAMINE 50MG/ML VIAL (J1200) As Ordered ONE; -fentaNYL 100 MCG/2 ML INJECTION (J3010) As Ordered ONE
== END ==
LOC: M RAD 08:30
PROVIDERS: ATTEND Physician Assistant
DX: R56.9 Unspecified convulsions (principal)

== ENCOUNTER → 2020-06-02 | Outpatient (CLI) | payer MEDICARE, BC ==
--- NOTE | 2020-06-21 13:52 | REPMRS ---
Patient History The patient states she had a clinical breast exam in 06/2019. Patient is postmenopausal. Family history of colorectal cancer at age 48 in sister. No Hormone Replacement Therapy Digital Woman Screen Mammo: June 02, 2020 - Exam #: [id number] Bilateral CC and MLO view(s) were taken. Technologist: Yelena Nieto, Technologist Prior study comparison: January 07, 2019, bilateral digital woman screen mammo performed at [facility]. April 10, 2017, bilateral digital mammo screening bilat, performed at [facility]. March 2009, digital bilateral screening mammo. FINDINGS: There are scattered fibroglandular densities. The Volpara volumetric breast density category is:B. There has been no change in the appearance of the mammogram from the prior studies. There is a mild amount of scattered fibroglandular density which is fairly symmetric. There is no interval development of dominant mass, architectural distortion, or grouped microcalcification suggestive of malignancy. 3-D tomosynthesis shows no additional findings. Assessment: BI-RADS/ACR category 1 mammogram. Negative Mammogram. Recommendation Routine screening mammogram of both breasts in 1 year (for women over age 40). This patient's Lifetime Breast Cancer Risk is estimated at 9.3 %. This mammogram was interpreted with the aid of an FDA-approved computer-aided dectection system. Electronically Signed By: Tolu Murguia MD 06/21/20 [id number]
== END ==
LOC: M WHC 07:40
PROVIDERS: ATTEND Family Medicine
DX: Z12.31 Encounter for screening mammogram for malignant neoplasm of breast (principal); Z80.0 Family history of malignant neoplasm of digestive organs; Z78.0 Asymptomatic menopausal state

== ENCOUNTER → 2020-06-08 | Outpatient (CLI) | payer MEDICARE, BC, OTHER ==
[~2020-06-08] MED LIST changes: +ISOVUE-370 76% 100ML VIAL As Ordered ONE; +ISOVUE-370 76% 100ML VIAL ONE
== END ==
LOC: M RAD 08:00
PROVIDERS: ATTEND Physician Assistant
DX: R56.9 Unspecified convulsions (principal); R94.02 Abnormal brain scan
CPT/HCPCS: 70470; Q9967

== ENCOUNTER → 2020-07-29 | Outpatient (CLI) | payer MEDICARE, BC, OTHER ==
[~2020-07-29] MED LIST changes: -ISOVUE-370 76% 100ML VIAL ONE
--- NOTE | 2020-07-29 10:55 | REPVR ---
PROCEDURE INFORMATION: Exam: CT Angiography Head With Contrast Exam date and time: 07/29/2020 10:29 AM Age: 60 years old Clinical indication: Other: Personal history of TIA, eval for vascular stenosis TECHNIQUE: Imaging protocol: Computed tomography angiography of the head with intravenous contrast. 3D rendering (Not supervised by radiologist): MIP and/or 3D reconstructed images were created by the technologist. Radiation optimization: All CT scans at this facility use at least one of these dose optimization techniques: automated exposure control; mA and/or kV adjustment per patient size (includes targeted exams where dose is matched to clinical indication); or iterative reconstruction. Contrast material: ISOVUE 370; Contrast volume: 100 ml; Contrast route: INTRAVENOUS (IV); COMPARISON: CT ANGIO HEAD 02/17/2019 10:40 AM FINDINGS: ANTERIOR CIRCULATION: Right internal carotid artery: Unremarkable. Intracranial segment is patent with no significant stenosis. No aneurysm. Right middle cerebral artery: Unremarkable. No occlusion or significant stenosis. No aneurysm. Right anterior cerebral artery: Unremarkable. No occlusion or significant stenosis. No aneurysm. Left internal carotid artery: Unremarkable. Intracranial segment is patent with no significant stenosis. No aneurysm. Left middle cerebral artery: Unremarkable. No occlusion or significant stenosis. No aneurysm. Left anterior cerebral artery: Unremarkable. No occlusion or significant stenosis. No aneurysm. POSTERIOR CIRCULATION: Right vertebral artery: The right vertebral artery is diminutive and predominantly terminates in PICA. Left vertebral artery: The left vertebral artery is dominant. Basilar artery: Unremarkable. No occlusion or significant stenosis. No aneurysm. Right posterior cerebral artery: Unremarkable. No occlusion or significant stenosis. No aneurysm. Left posterior cerebral artery: Unremarkable. No occlusion or significant stenosis. No aneurysm. IMPRESSION: No intracranial arterial stenosis. Electronically signed by: Katelyn Velazco On 07/29/2020 10:55:06 AM
--- NOTE | 2020-07-29 10:58 | REPVR ---
PROCEDURE INFORMATION: Exam: CT Angiography Neck With Contrast Exam date and time: 07/29/2020 10:29 AM Age: 60 years old Clinical indication: Other: Personal history of TIA, eval for vascular stenosis TECHNIQUE: Imaging protocol: Computed tomography angiography of the neck with intravenous contrast. 3D rendering (Not supervised by radiologist): MIP and/or 3D reconstructed images were created by the technologist. Radiation optimization: All CT scans at this facility use at least one of these dose optimization techniques: automated exposure control; mA and/or kV adjustment per patient size (includes targeted exams where dose is matched to clinical indication); or iterative reconstruction. Contrast material: ISOVUE 370; Contrast volume: 100 ml; Contrast route: INTRAVENOUS (IV); COMPARISON: CT ANGIO NECK 02/17/2019 10:40 AM FINDINGS: Right common carotid artery: No stenosis. No dissection or occlusion. Right internal carotid artery: There are coarse calcific atherosclerotic changes of the right carotid bulb. There is 50% stenosis at the origin of the right internal carotid artery. Right external carotid artery: No occlusion or stenosis of the origin. Right vertebral artery: No stenosis. No dissection or occlusion. Left common carotid artery: No stenosis. No dissection or occlusion. Left internal carotid artery: There are calcific atherosclerotic changes of the left carotid bulb. There is no significant stenosis. Left external carotid artery: No occlusion or stenosis of the origin. Left vertebral artery: No stenosis. No dissection or occlusion. Bones/joints: No acute fracture. There is degenerative disc disease and spondylosis, with coarse ventral bridging osteophytes at C4/5, C5/6 and C6/7. Soft tissues: Normal. No significant soft tissue swelling. IMPRESSION: 50% stenosis at the origin of the right internal carotid artery. REFERENCES: NASCET CRITERIA. The degree of internal carotid artery stenosis is based on NASCET criteria. Normal is no stenosis. Mild is less than 50% stenosis. Moderate is 50-69% stenosis. Severe is 70% to 99% stenosis. Total occlusion is no detectable patent lumen. Electronically signed by: Katelyn Velazco On 07/29/2020 10:58:43 AM
== END ==
LOC: M RAD 09:58
PROVIDERS: ATTEND Physician Assistant
DX: I65.21 Occlusion and stenosis of right carotid artery (principal); Z86.73 Personal history of transient ischemic attack (TIA), and cerebral infarction without residual deficits
CPT/HCPCS: 70496; 70498; Q9967

== ENCOUNTER → 2020-12-02 | Outpatient (REF) | payer MEDICARE, OTHER ==
[~2020-12-02] MED LIST changes: +GABA-282 PO; -GABA-843 PO; -ISOVUE-370 76% 100ML VIAL As Ordered ONE
[2020-12-02 11:47] LABS: HEMOGLOBIN 14.1 g/dl (12.0-15.5); MEAN CORPUSCULAR HEMOGLOBIN 29.3 pg (27.0-33.0); MEAN CORPUSCULAR VOLUME 91.3 fl (80.0-96.0); PLATELET COUNT, AUTOMATED 366 10^3/uL (150-450); RED BLOOD COUNT 4.82 10^6/uL (4.00-5.40); WHITE BLOOD COUNT 6.8 10^3/uL (4.0-10.0)
[2020-12-02 12:24] LABS: ALBUMIN 3.6 GM/DL (3.2-5.2); BILIRUBIN,DIRECT 0.2 MG/DL (0.0-0.2); BILIRUBIN,TOTAL 0.5 MG/DL (0.2-1.0); CALCIUM LEVEL 9.4 MG/DL (8.8-10.2); CHOLESTEROL RISK RATIO 2.583 (<5); CREATININE FOR GFR 1.16 MG/DL (0.55-1.30); GLOMERULAR FILTRATION RATE 50.6 (>45); POTASSIUM SERUM 4.9 MEQ/L (3.5-5.1); TOTAL PROTEIN 6.5 GM/DL (6.4-8.2)
== END ==
LOC: M LABDRAWC 11:13
PROVIDERS: ATTEND Internal Medicine Cardiovascular Disease
DX: I47.2 Ventricular tachycardia (principal); I50.22 Chronic systolic (congestive) heart failure; I48.0 Paroxysmal atrial fibrillation; I42.9 Cardiomyopathy, unspecified; E78.2 Mixed hyperlipidemia

== ENCOUNTER → 2020-12-04 | Outpatient (CLI) | payer MEDICARE, BC, OTHER | LOC: M LABSMTC 10:50 | PROVIDERS: ATTEND Student in an Organized Health Care Education/Training Program | DX: Z01.812 Encounter for preprocedural laboratory examination (principal); Z20.822 Contact with and (suspected) exposure to COVID-19; I65.21 Occlusion and stenosis of right carotid artery ==

== ENCOUNTER → 2020-12-30 | Outpatient (REF) | payer MEDICARE, OTHER ==
[~2020-12-30] MED LIST changes: -ASPI325T36 PO; +ASPI325T49 PO
[2020-12-31 13:08] LABS: HEMATOCRIT 38.8 % (36.0-47.0); HEMOGLOBIN 12.6 g/dl (12.0-15.5); MEAN CORPUSCULAR HEMOGLOBIN 30.3 pg (27.0-33.0); MEAN CORPUSCULAR HGB CONC 32.5 g/dl (32.0-36.5); MEAN CORPUSCULAR VOLUME 93.3 fl (80.0-96.0); PLATELET COUNT, AUTOMATED 328 10^3/uL (150-450); RED BLOOD COUNT 4.16 10^6/uL (4.00-5.40); WHITE BLOOD COUNT 6.5 10^3/uL (4.0-10.0)
== END ==
LOC: M LABDRAWC 11:31
PROVIDERS: ATTEND Nurse Practitioner
DX: R19.7 Diarrhea, unspecified (principal); K59.00 Constipation, unspecified

== ENCOUNTER → 2020-12-31 | Outpatient (REF) | payer MEDICARE, OTHER | LOC: M LAB REF 15:54 | PROVIDERS: ATTEND Nurse Practitioner | DX: R19.7 Diarrhea, unspecified (principal); K59.00 Constipation, unspecified ==

== ENCOUNTER → 2021-05-02 | Outpatient (CLI) | payer MEDICARE, BC ==
[~2021-05-02] MED LIST changes: +GABA-283 PO; -GABA-845 PO
--- NOTE | 2021-05-02 14:47 | DEXAMM ---
INDICATION: AGE REL OSTEOPOROSIS W/O FX/M81.0. Left hip replacement. COMPARISON: Comparison study June 18, 2018.. TECHNIQUE: Bone density was measured using dual-energy x-ray absorptionmetry (DEXA). FINDINGS: AP SPINE L1-L4 BMD 1.075 g/cm2 Young Adult T-Score -1.0 Age Matched Z-Score 0.4. RT FEMUR, TOTAL BMD 0.724 g/cm2 Young Adult T-Score -2.3 Age Matched Z-Score -1.2. RT NECK BMD 0.730 g/cm2 Young Adult T-Score -2.2 Age Matched Z-Score -0.9. IMPRESSION: There is low bone density of the spine. There is low bone density of the right hip. The density of the spine has increased 19.3% since the initial exam on June 18, 2018. The density of the right hip has increased 4.3% since the initial exam on June 18, 2019. FOLLOW-UP: Recommendation for the next bone density exam: 2 years. <Electronically signed by Tolu Murguia > 05/02/21 [id number]
== END ==
LOC: M WHC 13:38
PROVIDERS: ATTEND Nurse Practitioner Family
DX: M81.0 Age-related osteoporosis without current pathological fracture (principal)

== ENCOUNTER → 2021-05-16 | Outpatient (REF) | payer MEDICARE, BC, OTHER | LOC: M LAB REF 17:18 | PROVIDERS: ATTEND Internal Medicine Nephrology | DX: E83.42 Hypomagnesemia (principal) ==

== ENCOUNTER → 2021-05-26 | Outpatient (CLI) | payer MEDICARE, BC, OTHER ==
--- NOTE | 2021-05-26 15:36 | REP ---
INDICATION: CYST OF KIDNEY. COMPARISON: 11/28/2019 a contrast-enhanced exam TECHNIQUE: Noncontrast enhanced CT examination using standard helical technique FINDINGS: The lung bases are clear. Arising from the inferior pole of the left kidney note is again made of an oval-shaped 5.7 cm sized low-density structure having water density Hounsfield unit readings and development of minimal thin peripheral wall calcifications. The kidneys are otherwise unchanged. The liver, spleen, pancreas, and adrenal glands are again seen to be within normal limits. There is some fatty infiltration and atrophy of the pancreas status quo. There is no significant change in appearance of the abdominal aorta or para-regions. There is no significant change in appearance of the bowel loops or the mesenteries. There is no evidence of free fluid or free air. Once again, there is spray artifact seen arising from a left hip prosthesis obscuring multiple pelvic images. There is no significant change in appearance of the imaged osseous structures. IMPRESSION: There is a Bosniak class 2 left renal cyst as described above. <Electronically signed by James Hazel > 05/26/21 [id number]
== END ==
LOC: M RAD 14:42
PROVIDERS: ATTEND Internal Medicine Nephrology
DX: N28.1 Cyst of kidney, acquired (principal)

== ENCOUNTER → 2021-05-31 | Outpatient (POV) | payer MEDICARE, BC, OTHER ==
[~2021-05-31] VITALS: Ht 177.8 cm; Wt 93.1 kg
[2021-05-31 09:40] VITALS: BP 125/68
--- NOTE | 2021-06-02 10:08 | IRPN ---
[facility] IR Progress Note IR Progress Note DATE: May 31, 2021 FOLLOW-UP: 60-year-old female with coronary artery disease, chronic kidney disease, diabetes and recurrent left renal cyst. Patient complains of left flank pain. No fevers, chills or dysuria. No hematuria. No change in appetite or weight. Patient reports that her pain always goes away after left cyst aspiration. She's had couple of left cyst aspirations in the past. No prior sclerotherapy. ON EXAMINATION: Patient comfortable at rest. Left flank nontender. Moving all 4 limbs. Patient is weightbearing. Alert and oriented. IMAGING: I personally reviewed the CT abdomen pelvis without IV contrast, performed 05/26/2021. There is a 5.6 x 2.8 cm hypodense water density, cystic structure, arising off the left kidney. The left kidney is atrophic. There is facet hypertrophy and protruding disc at L3-4 with left neuroforaminal stenosis. IMPRESSION: 60-year-old female with chronic left flank pain and recurrent left renal cyst. The cyst in the past was much larger and patient described relief of the pain with cyst aspiration. This cyst is now only 5 cm. I discussed the risks and benefits of sclerotherapy for the left renal cyst and patient is agreeable to proceed. We have scheduled the patient for left renal cyst sclerosis. 2. Patient also has left neuroforaminal stenosis at L3-4 and this may be contributing factor to her back pain. Recommend further pain evaluation after cyst aspiration, and if pain persists, consider referral to pain services. Thank you for this referral. Cc Dr. Shakira Simon Allergies Coded Allergies: bacitracin (Verified Allergy, Intermediate, raised rash, 05/01/19) neomycin (Verified Allergy, Intermediate, raised rash, 05/01/19) nickel (Verified Allergy, Intermediate, raised rash, 05/01/19) polymyxin B (Verified Allergy, Intermediate, raised rash, 05/01/19) Sulfa (Sulfonamide Antibiotics) (Verified Adverse Reaction, Intermediate, tachycardia, 05/01/19) levetiracetam (Verified Adverse Reaction, Intermediate, tachycardia, 05/01/19) lisinopril (Verified Adverse Reaction, Intermediate, tachycardia, 05/01/19) VS,Fishbone, I+O VS, Fishbone, I+O Vital Signs Date Time Temp Pulse Resp B/P (MAP) Pulse Ox O2 Delivery O2 Flow Rate FiO2 05/31/21 09:40 97.8 82 20 125/68 (87) 97 Room Air NEELAM ALCALA MD Jun 02, 2021 10:08
== END ==
LOC: M IRPOV 09:37
PROVIDERS: ATTEND Radiology Diagnostic Radiology
DX: N28.1 Cyst of kidney, acquired (principal); E11.22 Type 2 diabetes mellitus with diabetic chronic kidney disease; I25.10 Atherosclerotic heart disease of native coronary artery without angina pectoris; M48.061 Spinal stenosis, lumbar region without neurogenic claudication; M89.38 Hypertrophy of bone, other site; N18.9 Chronic kidney disease, unspecified; Z88.1 Allergy status to other antibiotic agents; Z88.2 Allergy status to sulfonamides; Z88.8 Allergy status to other drugs, medicaments and biological substances; Z91.09 Other allergy status, other than to drugs and biological substances

== ENCOUNTER → 2021-06-08 | Outpatient (CLI) | payer MEDICARE, BC, OTHER ==
[~2021-06-08] MED LIST changes: +ISOVUE-300 61% 50ML VIAL As Ordered ONE; +LIDOCAINE 1% MDV 20ML VIAL As Ordered ONE; +MIDAZOLAM INJ 2MG/2ML VIAL (J2250 PER 1MG) As Ordered ONE; +NS 1,000 ML IV SCH; +SODIUM TETRADECYL SULFATE(3%)30MG/ML 2ML VIAL (SOTRADECOL) As Ordered ONE; +diphenhydrAMINE 50MG/ML VIAL (J1200) As Ordered ONE; +fentaNYL 100 MCG/2 ML INJECTION (J3010) As Ordered ONE
--- NOTE | 2021-06-08 11:49 | IRHP ---
[facility] IR Pre-Procedure H & P General Date of Service: Jun 08, 2021 Procedure: Same Day Surgery Interval History and Physical I have seen the patient and reviewed last H & P performed within 30 days. There is no significant interval change. History of Present Illness Chief Complaint The patient is a 60-year-old female admitted with a reason for visit of Renal Cyst. PRE-PROCEDURE DIAGNOSIS: recurrent renal cyst HEART: normal rate. LUNGS: normal breathing at rest. ASA Classification ASA Classification: III-Severe systemic dis. Mallampati Score: II NPO: Yes Problems with prior sedation: No Obstructive Sleep Apnea: No Plan moderate sedation Allergies Coded Allergies: bacitracin (Verified Allergy, Intermediate, raised rash, 05/01/19) neomycin (Verified Allergy, Intermediate, raised rash, 05/01/19) nickel (Verified Allergy, Intermediate, raised rash, 05/01/19) polymyxin B (Verified Allergy, Intermediate, raised rash, 05/01/19) Sulfa (Sulfonamide Antibiotics) (Verified Adverse Reaction, Intermediate, tachycardia, 05/01/19) levetiracetam (Verified Adverse Reaction, Intermediate, tachycardia, 05/01/19) lisinopril (Verified Adverse Reaction, Intermediate, tachycardia, 05/01/19) Home Medications Scheduled Alprazolam (Alprazolam), 0.25 MG PO BID, (Reported) Aspirin (Aspirin EC), 325 MG PO DAILY, (Reported) Atorvastatin Calcium (Atorvastatin Calcium), 80 MG PO QHS, (Reported) Bisoprolol Fumarate (Bisoprolol Fumarate), 20 MG PO DAILY, (Reported) Calcitriol (Calcitriol), 0.5 MCG PO 6XWK, (Reported) Calcium Carbonate (Calcium), 600 MG PO BID, (Reported) Cholecalciferol (Vitamin D3) (Vitamin D3), 1,000 UNIT PO DAILY, (Reported) Denosumab Injection (Prolia), 60 MG SC ASDIRECTED, (Reported) Dulaglutide (Trulicity), 0.75 MG SC QWEEK, (Reported) Duloxetine Hcl (Cymbalta), 30 MG PO BID, (Reported) Insulin Aspart (Novolog Flexpen), 1 DOSE SC ACHS, (Reported) Insulin Glargine,Hum.rec.anlog (Lantus Solostar), 32 UNIT SC QAM, (Reported) Insulin Glargine,Hum.rec.anlog (Lantus Solostar), 34 UNITS SC QHS, (Reported) Adamant-3 Fatty Acids/Fish Oil (Fish Oil 1,000 mg Capsule), 1,000 MG PO BID, (Reported) Potassium Chloride (K-Tab ER), 20 MEQ PO DAILY, (Reported) Trazodone HCl (Trazodone HCl), 50 MG PO QHS, (Reported) Scheduled PRN Acetaminophen (Tylenol Extra Strength), 500 MG PO QID PRN for PAIN / FEVER, (Reported) Nitroglycerin (Nitroglycerin), 0.4 MG SL NITRO PRN for CHEST PAIN, (Reported) Ondansetron HCl (Ondansetron HCl), 4 MG PO Q6H PRN for NAUSEA, (Reported) Trazodone HCl (Trazodone HCl), 50 MG PO QHS PRN for SLEEP, (Reported) Discontinued Medications Oxycodone/Acetaminophen (Oxycodone-Acetaminophen 5-325), 1 TAB PO Q4HP PRN for MILD/MODERATE PAIN (PS 1-7) Discontinued Reason: Pt states not taking Sennosides/Docusate Sodium (Senokot-S Tablet), 1 TAB PO BIDP PRN for CONSTIPATION Discontinued Reason: Pt states not taking Tizanidine HCl (Tizanidine HCl), 4 MG PO TID PRN for MUSCLE SPASMS, (Reported) Discontinued Reason: Pt states not taking VS, I&O, 24H, Fishbone Vital Signs/I&O Vital Signs Date Time Temp Pulse Resp B/P (MAP) Pulse Ox O2 Delivery O2 Flow Rate FiO2 06/08/21 11:45 71 20 97 Nasal Cannula 2.0 06/08/21 10:19 99.2 NEELAM ALCALA MD Jun 08, 2021 11:49
[2021-06-08 14:30] VITALS: BP 136/57
--- NOTE | 2021-06-09 15:28 | IRPON ---
IR Postoperative Note Date Of Procedure: Jun 08, 2021 Time Of Procedure: 16:00 IR Postoperative Note IR Fluoroscopy and ultrasound guided left renal cyst sclerotherapy. IR Moderate sedation. Clinical information: Recurrent left renal cyst. Flank pain. Physician: Dr. Duke. Procedure: The patient was advised of the benefits, risks and alternatives of the procedure and informed consent was obtained. The time-out was performed with verification of the patient's name, MRN, site of procedure and type of procedure to be performed. The patient was positioned in the prone position on the angiographic table. The site was prepped and draped in the usual sterile fashion. Moderate sedation was performed by the physician including the presence of an independent trained RN who assisted and monitored the patient's level of consciousness and physiologic status. Following the administration of fentanyl and Versed , the physician spent 90 minutes of continuous face to face time with the patient. A fagoting machine operator radiograph reveals no gross abnormality. Ultrasound left flank demonstrates hypoechoic, exophytic, left renal cyst, with through transmission. The puncture site was anesthetized with lidocaine. The left renal cyst was accessed under direct ultrasound guidance, using an 18-gauge Chiba needle. Injection of contrast through the needle, under fluoroscopy guidance, demonstrates the left renal cyst. No communication with the renal collecting system. No extravasation or leakage of contrast into the retroperitoneum. The cyst was aspirated in its entirety yielding 50 mL of yellow fluid. 20 ml of 3% Sotradecol in mixture with 5 mL of contrast, was then injected t hrough the needle, under fluoroscopy guidance into the left renal cyst. Fluoroscopy confirmed no extravasation of the Sotradecol. The mixture was left to dwell in the cyst for 30 minutes. The cyst was then reaspirated under fluoroscopy guidance. Follow-up ultrasound demonstrated complete collapse of the left renal cyst with apposition of the conley. The needle was then removed, pressure held, hemostasis achieved. A sterile dressing was applied to the site. The patient tolerated the procedure well and was returned to the PRU in stable condition. EBL: Less than 5 ml. Complications: None. Conclusion: 1. Successful ultrasound-guided left renal cyst access and contrast injection, demonstrates no communication between the cyst and the renal collecting system. 2. Successful left renal cyst sclerotherapy. Patient to follow-up in IR clinic in 2 weeks. Thank you this referral. Cc Dr. Shakira Simon. NEELAM DUKE MD Jun 09, 2021 15:27
== END ==
LOC: M IRPRO 10:08
PROVIDERS: ATTEND Radiology Diagnostic Radiology
DX: N28.1 Cyst of kidney, acquired (principal); Z79.4 Long term (current) use of insulin; Z79.82 Long term (current) use of aspirin; Z79.899 Other long term (current) drug therapy; Z88.1 Allergy status to other antibiotic agents; Z88.2 Allergy status to sulfonamides; Z88.8 Allergy status to other drugs, medicaments and biological substances
CPT/HCPCS: 49185; 50390; 99152; 99153; J1200; J2250; J3010; Q9967

== ENCOUNTER 2021-06-21 09:47 | Inpatient (IN) | payer MEDICARE, BC, OTHER ==
[~2021-06-21] VITALS: Ht 177.8 cm; Wt 95.0 kg
[~2021-06-21 09:47] MED LIST changes: -ISOVUE-300 61% 50ML VIAL As Ordered ONE; -LIDOCAINE 1% MDV 20ML VIAL As Ordered ONE; -MIDAZOLAM INJ 2MG/2ML VIAL (J2250 PER 1MG) As Ordered ONE; -NS 1,000 ML IV SCH; -SODIUM TETRADECYL SULFATE(3%)30MG/ML 2ML VIAL (SOTRADECOL) As Ordered ONE; -diphenhydrAMINE 50MG/ML VIAL (J1200) As Ordered ONE; -fentaNYL 100 MCG/2 ML INJECTION (J3010) As Ordered ONE
[2021-06-21] MEDS ORDERED: MORPHINE 4 MG/ML 1ML VIAL/SYRINGE (J2270) SC ONE (10:50)
[2021-06-21] MEDS ORDERED: ONDANSETRON 4 MG ORAL DISINTEGRATING TAB PO ONE (10:50)
--- NOTE | 2021-06-21 11:52 | REP ---
INDICATION: trauma COMPARISON: None. TECHNIQUE: Four views left ankle. FINDINGS: There is an oblique fracture of the distal fibula with mild lateral displacement. There is a somewhat comminuted fracture of the medial malleolus with slight lateral displacement. There appears to be a small fracture of the lateral aspect of the distal tibia as well. There is widening of the superomedial ankle mortise. There is diffuse soft tissue swelling. IMPRESSION: Distal tibial and fibular fractures as discussed above. <Electronically signed by Avni Burgos > 06/21/21 [id number]
--- NOTE | 2021-06-21 11:55 | REP ---
INDICATION: trauma COMPARISON: None. TECHNIQUE: AP and lateral views left lower leg. FINDINGS: There is a fracture of the medial malleolus which is slightly comminuted, with slight lateral displacement. There is a fracture of the distal fibula with slight lateral displacement. No other fracture or dislocation is seen more proximally. There is mild degenerative change at the knee joint. IMPRESSION: Distal tibial and fibular fractures. <Electronically signed by Avni Burgos > 06/21/21 [id number]
--- NOTE | 2021-06-21 11:57 | REP ---
INDICATION: trauma. COMPARISON: None. TECHNIQUE: AP views pelvis, AP and frogleg left hip. FINDINGS: There is a total left hip prosthesis. There is no evidence of acute fracture, dislocation or intrinsic bone disease. Spurring is noted of the L4 and L5 vertebral bodies. IMPRESSION: No acute fracture or dislocation. <Electronically signed by Avni Burgos > 06/21/21 [id number]
--- NOTE | 2021-06-21 12:00 | REP ---
INDICATION: trauma. COMPARISON: 08/29/2018. TECHNIQUE: Five views lumbosacral spine. FINDINGS: Mild depression of the superior endplate of L1 through L4 is unchanged. There is normal lumbar lordosis. There is mild to moderate diffuse spurring. There is moderate disc space narrowing at L2-3, L4-5 and L5-S1 with subchondral sclerosis. There is sclerosis and spurring at the posterior facet joints. The posterior elements are intact. IMPRESSION: Stable mild compression deformities and degenerative changes. No acute abnormalities visualized. <Electronically signed by Avni Burgos > 06/21/21 [id number]
[2021-06-21] MEDS ORDERED: NORCO, ANEXSIA 5/325MG TABLET (HYDROcodone/ACETAMINOPHEN) PO ONE (14:50)
[2021-06-21 16:20] LABS: HEMATOCRIT 38.2 % (36.0-47.0); HEMOGLOBIN 12.8 g/dl (12.0-15.5); MEAN CORPUSCULAR HEMOGLOBIN 30.5 pg (27.0-33.0); MEAN CORPUSCULAR HGB CONC 33.5 g/dl (32.0-36.5); PLATELET COUNT, AUTOMATED 341 10^3/uL (150-450); WHITE BLOOD COUNT 7.3 10^3/uL (4.0-10.0)
[2021-06-21 16:40] LABS: CALCIUM LEVEL 8.5 MG/DL (8.8-10.2); CREATININE FOR GFR 1.22 MG/DL (0.55-1.30); GLOMERULAR FILTRATION RATE 47.7 (>45); POTASSIUM SERUM 4.8 MEQ/L (3.5-5.1)
--- NOTE | 2021-06-21 16:50 | REP ---
INDICATION: admission. COMPARISON: 02/24/2020. TECHNIQUE: Single portable AP view of the chest was performed. FINDINGS: There is no acute infiltrate or pulmonary edema. Lungs are clear. The heart is not significantly enlarged. The mediastinal silhouette is unremarkable. The visualized osseous structures are intact.Left pacemaker is again noted. IMPRESSION: No acute pulmonary disease. <Electronically signed by Avni Burgos > 06/21/21 [id number]
[2021-06-21 16:58] LABS: RSV AMPLIFICATION NEGATIVE (NEGATIVE)
[2021-06-21] MEDS ORDERED: ONDANSETRON 4MG/2ML VIAL IV PRN (17:20)
[2021-06-21] MEDS ORDERED: PERCOCET 5MG/325MG TAB PO PRN (17:20)
[2021-06-21] MEDS ORDERED: ACETAMINOPHEN TAB 650MG DOSE (2X325MG) PO PRN (17:20)
[2021-06-21] MEDS ORDERED: LOSA100T50 PO (17:29)
[2021-06-21] MEDS ORDERED: XANA1TAB2 PO (17:29)
[2021-06-21] MEDS ORDERED: CHOL10007 PO (17:29)
[2021-06-21] MEDS ORDERED: TRUL0.5I SC (17:29)
[2021-06-21] MEDS ORDERED: NOVOINJ3 SC (17:29)
[2021-06-21] MEDS ORDERED: HOME MED LIST COMPLETE! XX SCH (17:30)
[2021-06-21] MEDS ORDERED: DENOSUMAB 60MG/1ML SYRINGE (PROLIA) (J0897 PER 1MG) SC SCH (18:40)
--- NOTE | 2021-06-21 18:56 | HPEPDOC ---
[facility] Medical History & Physical Date of Admission Jun 21, 2021 Date of Service: Jun 21, 2021 Primary Care Physician: JENSEN ROSALES DO Attending Physician: AD VAUGHN DO History and Physical CHIEF COMPLAINT: Fall with leg pain HISTORY OF PRESENT ILLNESS: Patient is a 60-year-old female who presented to the emergency department via EMS after falling and hurting her ankle. Patient states that she stood up this morning and her knee locked causing her to fall. Patient was able to get up however, she instantly fell back down after putting weight on her left ankle. Patient was describing her left ankle is very painful and swollen. In the emergency department, patient was found to have a fracture. Orthopedics was contacted by the emergency department who stated the patient is not a surgical candidate and that the patient will be followed up upon discharge from the hospital. Patient was going to be splinted and sent home from the emergency department however, patient was unable to use the walker and get around safely and failed a PT home safety evaluation so the patient will be admitted into the hospital. Patient states she was in her usual state of health prior to falling this morning. Patient did not have any loss of consciousness nor did she hit her head. PAST MEDICAL HISTORY: 1. Diabetes mellitus. 2. Mitral valve regurgitation. 3. Congestive heart failure. 4. Myocardial infarction thousand 2009 5. Hypertension 6. Hyperlipidemia 7. Seizures 8. Depression 9. Anxiety 10. Migraines 11. Atrial fibrillation PAST SURGICAL HISTORY: 1. Cholecystectomy. 2. Carpal tunnel release. 3. Open fracture reduction in the right forearm. 4. Scar revision right forearm 5. Heel spur right foot 6. Cardiac stent 7. Pacemaker placement 2009 8. Bilateral cataracts 9. Pacemaker change 2016 10. Patient watchman placement 11. [place] in left wrist to tendon SOCIAL HISTORY: Patient is a former smoker and says she will occasionally drink alcohol. Patient denies illicit drug use. FAMILY HISTORY: Father diagnosed with cancer. Mother is a history of a stroke ALLERGIES: Please see below. REVIEW OF SYSTEMS: General: Patient denies fevers HEENT: Patient denies headaches Cardiovascular: Patient denies chest pain Respiratory: Patient denies shortness of breath, cough GI: Patient denies abdominal pain, nausea, vomiting, diarrhea : Patient denies increased frequency or pain with urination Extremities: Patient reports pain in her left ankle due to the fracture Neurological: Patient denies numbness or tingling in legs Skin: Patient denies any new rashes or lesions. Hematologic: Patient denies any easy bruising. Lymphatic: Patient denies any lumps lumps or bumps in neck, axilla, or groin HOME MEDICATIONS: Please see below. PHYSICAL EXAMINATION: VITAL SIGNS: Temperature 98.2, pulse 58, respiratory rate 18, blood pressure 126/60, pulse oximetry 96% on room air. General: Alert and oriented female patient who was sitting in bed I walked in the room. Patient not appear to be in any acute distress. HEENT: Normocephalic, atraumatic, moist mucous membranes. Neck: No lymphadenopathy or thyromegaly Cardiac: Regular rate and rhythm, no murmurs, normal S1, normal S2 Pulm: Clear to auscultation bilaterally. No wheezes, rhonchi, rales Abd: Nondistended, nontender to palpation, normal bowel sounds Ext: No edema in the right lower extremity. Left lower extremity is splinted. Patient is neurovascularly intact distal to the splint Neuro: Reports equal sensation to light touch in her upper and lower extremities bilaterally Skin: Skin of the head, neck, upper and lower extremity, and back was examined did not show any evidence of rash or wounds. LABORATORY DATA: See below. IMAGING: X-ray of the left ankle performed on 06/21/2021 is reported to show oblique fracture of the distal fibula with mild lateral displacement. There is somewhat comminuted fracture of the medial malleolus with slight lateral displacement. Left hip and pelvis x-ray performed on 06/21/2021 is reported to show no acute fracture dislocation. Lumbosacral spine x-ray performed on 06/21/2021 is reported to show stable mild compression deformities and degenerative changes. No acute abnormalities visualized. Tibia/fibular left x-ray performed on 06/21/2021 is reported to show distal tibial and fibular fractures. Chest x-ray performed on 06/21/2021 was aborted show no acute pulmonary disease. MICROBIOLOGY: Please see below. ASSESSMENT: 60-year-old female who presented to the hospital after falling fracturing her ankle who was unable to safely be discharged in the emergency department.. . PLAN: 1. Left ankle fracture. Patient will be admitted for physical therapy as orthopedic surgery has deemed the patient not a candidate for surgery. Patient will follow up with orthopedic surgery once patient is discharged in the hospital. We will continue physical therapy and pain control. 2. Diabetes mellitus. We will continue the patient on medication regimen. Patient is on sliding scale and basal insulin. 3. Hypertension. Continue home medications. 4. Congestive heart failure, unknown ejection fraction. I do not have an echocardiogram in the medical record. Patient does not appear to be in exacerbation today. 5. Atrial fibrillation status post watchman device. Patient is not on anticoagulation at home due to the watchman device. 6. Coronary artery disease. Continue medications. 7. Hyperlipidemia. Continue home medication. 8. Seizure disorder. Continue home medications. 9. DVT prophylaxis: Lovenox 10. CODE STATUS: Full code Disposition: Patient will be admitted to the medical surgical floor for further physical therapy. I do expect greater than 2 midnights. Vital Signs Vital Signs Date Time Temp Pulse Resp B/P (MAP) Pulse Ox O2 Delivery O2 Flow Rate FiO2 06/21/21 17:42 126/60 (82) 06/21/21 16:15 18 06/21/21 16:02 58 96 06/21/21 14:56 Room Air 06/21/21 10:06 98.2 Laboratory Data Labs 24H Laboratory Tests 2 06/21/21 16:02: Nucleated Red Blood Cells % (auto) 0.0, Anion Gap 4L, Glomerular Filtration Rate 47.7, Calcium Level 8.5L, Coronavirus (COVID-19)(PCR) NEGATIVE, Influenza Type A (RT-PCR) NEGATIVE, Influenza Type B (RT-PCR) NEGATIVE, Respiratory Syncytial Virus (PCR) NEGATIVE 06/21/21 18:18: CBC/BMP Laboratory Tests 06/21/21 16:02 Home Medications Scheduled Alprazolam (Xanax) 1 Mg Tablet, 1 MG PO BID Aspirin (Aspirin EC) 325 Mg Tablet.dr, 325 MG PO DAILY Atorvastatin Calcium (Atorvastatin Calcium) 80 Mg Tab, 80 MG PO QHS Bisoprolol Fumarate (Bisoprolol Fumarate) 10 Mg Tablet, 10 MG PO DAILY Calcitriol (Calcitriol) 0.25 Mcg Cap, 0.5 MCG PO DAILY Calcium Carbonate (Calcium) 600 Mg Tab, 600 MG PO BID Cholecalciferol (Vitamin D3) (Vitamin D3) 25 Mcg Tablet, 25 MCG PO DAILY Denosumab Injection (Prolia) 60 Mg/1 Ml Syringe, 60 MG SC ASDIRECTED EVERY 6 MONTHS Dulaglutide (Trbrysonity) 1.5 Mg/0.5 Ml Pen.injctr, 1.5 MG SC QWEEK MONDAYS Duloxetine Hcl (Cymbalta) 30 Mg Cap, 30 MG PO BID Insulin Aspart (Novolog Flexpen) 100 Unit/Ml Inj, 1 DOSE SC BID 4 UNITS WITH ADDITIONAL SLIDING SCALE COVERAGE, BREAKFAST AND DINNER Insulin Aspart (Novolog Flexpen) 100 Unit/1 Ml Insuln.pen, 1 DOSE SC DAILY 3 UNITS WITH ADDITIONAL SLIDING SCALE COVERAGE, TAKES AT LUNCH Insulin Glargine,Hum.rec.anlog (Lantus Solostar) 100 Unit/Ml Inj, 34 UNITS SC DAILY Insulin Glargine,Hum.rec.anlog (Lantus Solostar) 100 Unit/1 Ml Insuln.pen, 32 UNITS SC QHS Losartan Potassium (Losartan Potassium) 100 Mg Tablet, 100 MG PO DAILY [place]-3 Fatty Acids/Fish Oil (Fish Oil 1,000 mg Capsule) 1,000 Mg Cap, 1,000 MG PO BID Trazodone HCl (Trazodone HCl) 50 Mg Tab, 50 MG PO QHS PATIENT TAKES 1-2 TABS NIGHTLY Scheduled PRN Acetaminophen (Tylenol Extra Strength) 500 Mg Tablet, 500 MG PO QID PRN for PAIN LEVEL 1-4 Nitroglycerin (Nitroglycerin) 0.4 Mg Sub, 0.4 MG SL NITRO PRN for CHEST PAIN Ondansetron HCl (Ondansetron HCl) 4 Mg Tab, 4 MG PO Q6H PRN for NAUSEA Allergies Coded Allergies: bacitracin (Verified Allergy, Intermediate, raised rash, 05/01/19) neomycin (Verified Allergy, Intermediate, raised rash, 05/01/19) nickel (Verified Allergy, Intermediate, raised rash, 05/01/19) polymyxin B (Verified Allergy, Intermediate, raised rash, 05/01/19) Sulfa (Sulfonamide Antibiotics) (Verified Adverse Reaction, Intermediate, tachycardia, 05/01/19) levetiracetam (Verified Adverse Reaction, Intermediate, tachycardia, 05/01/19) lisinopril (Verified Adverse Reaction, Intermediate, tachycardia, 05/01/19) A-FIB/CHADSVASC A-FIB History Current/History of A-Fib/PAF?: Yes Current PO Anticoag Therapy: No Treatment Reason Anticoagulant not given: Other Other reason anticoagulant not: watchman device AD VAUGHN DO Jun 21, 2021 18:56
[2021-06-21 19:08] LABS: CALCIUM LEVEL 8.4 MG/DL (8.8-10.2); CREATININE FOR GFR 1.26 MG/DL (0.55-1.30)
[2021-06-21] MEDS: traZODone 50 MG TAB PO SCH (21:00)
[2021-06-21 21:07] VITALS: BP 135/64
[2021-06-21] MEDS: ALPRAZolam 0.5 MG TAB PO SCH (22:43)
[2021-06-21] MEDS: DULoxetine 30 MG CAP (CYMBALTA) PO SCH (22:44)
[2021-06-21] MEDS: ATORVASTATIN 20 MG TAB PO SCH (22:44)
[2021-06-21] MEDS: PERCOCET 5MG/325MG TAB PO PRN (22:45)
[2021-06-22 06:00] VITALS: BP 126/32
[2021-06-22 06:26] LABS: HEMATOCRIT 36.1 % (36.0-47.0); HEMOGLOBIN 11.9 g/dl (12.0-15.5); MEAN CORPUSCULAR HEMOGLOBIN 30.5 pg (27.0-33.0); MEAN CORPUSCULAR VOLUME 92.6 fl (80.0-96.0); PLATELET COUNT, AUTOMATED 279 10^3/uL (150-450); WHITE BLOOD COUNT 4.8 10^3/uL (4.0-10.0)
[2021-06-22 06:41] LABS: CALCIUM LEVEL 8.2 MG/DL (8.8-10.2); CREATININE FOR GFR 1.13 MG/DL (0.55-1.30); GLOMERULAR FILTRATION RATE 52.1 (>45); MAGNESIUM LEVEL 2.4 MG/DL (1.8-2.4); POTASSIUM SERUM 4.5 MEQ/L (3.5-5.1)
[2021-06-22] MEDS: PERCOCET 5MG/325MG TAB PO PRN (08:00)
[2021-06-22] MEDS ORDERED: GLUCOSE 4GM CHEW TABLET PO PRN (08:05)
[2021-06-22] MEDS ORDERED: DEXTROSE 50% 50 ML SYRINGE IV PRN (08:05)
[2021-06-22] MEDS ORDERED: GLUCAGON INJ 1MG VIAL SC PRN (08:05)
[2021-06-22] MEDS: ALPRAZolam 0.5 MG TAB PO SCH ×2 (08:14→20:32)
[2021-06-22] MEDS: CALCITRIOL 0.25 MCG CAP (S0169) PO SCH (08:14)
[2021-06-22] MEDS: VITAMIN D 1,000 INTERNATIONAL UNITS TABLET PO SCH (08:17)
[2021-06-22] MEDS: ASPIRIN ENTERIC 325 MG TAB PO SCH (08:17)
[2021-06-22] MEDS: bisoproloL fumarate 10 MG TAB PO SCH (08:17)
[2021-06-22] MEDS: LOSARTAN 50MG TABLET PO SCH (08:18)
[2021-06-22] MEDS: DULoxetine 30 MG CAP (CYMBALTA) PO SCH ×2 (08:18→20:33)
[2021-06-22] MEDS: ENOXAPARIN 40MG/0.4ML SYRINGE (J1650 PER 10MG) SC SCH (08:19)
[2021-06-22] MEDS: LEVEMIR (INSULIN DETEMIR) 1 UNITS/0.01ML SC SCH (09:00)
[2021-06-22] MEDS: HumaLOG INSULIN (NovoLOG) PER UNIT SC SCH ×3 (09:57→17:11)
--- NOTE | 2021-06-22 13:58 | IPNPDOC ---
Text Note Date of Service The patient was seen on 06/22/21. NOTE Subjective: Patient is a 60-year-old female who presented the emergency depart ment after falling yesterday. Patient was admitted due to inability to pass physical therapy. Patient is still struggling to work with physical therapy and needs to he will either side of her to be able to stand up and transfer over to a commode. Patient is otherwise feeling well. Patient's only complaint is of pain in her left ankle. Review of systems: General: Patient denies fevers HEENT: Patient denies headaches Cardiovascular: Patient denies chest pain Respiratory: Patient denies shortness of breath, cough GI: Patient denies abdominal pain, nausea, vomiting, diarrhea : Patient denies increased frequency or pain with urination Extremities: Patient reports pain in her left ankle as above Neurological: Patient denies numbness or tingling in legs Physical exam: Vitals: See below General: Alert and oriented female patient who was laying in bed when I walked in the room. Patient not appear to be in any acute distress. HEENT: Normocephalic, atraumatic, moist mucous membranes. Neck: No lymphadenopathy or thyromegaly Cardiac: Regular rate and rhythm, no murmurs, normal S1, normal S2 Pulm: Clear to auscultation bilaterally. No wheezes, rhonchi, rales Abd: Nondistended, nontender to palpation, normal bowel sounds Ext: No edema bilateral lower extremities, left leg is splinted and she is neurovascularly intact distal to the splint Labs: See below Imaging: No new imaging has been performed Assessment/plan: 60-year-old female presented to hospital after falling and fracturing her ankle was unable to be safely discharged in the emergency department due to inability to walk 1. Left ankle fracture. Patient will need to continue work with physical therapy. Orthopedic surgery as needed the patient not a candidate for surgery will follow up in the office with her. Continue physical therapy and pain control. 2. Diabetes mellitus. Continue patient's medication regimen. Patient is on 4 units of rapid acting insulin with breakfast and dinner and 3 units at lunch. Patient's blood sugar was quite low this morning so her Levemir was held. We will continue to monitor this. 3. Hypertension. Continue home medications with hold parameters. 4. Congestive heart failure, unknown ejection fraction. I do not have an echocardiogram on the medical record. Patient does not appear to be in exacerbation. 5. Atrial fibrillation status post watchman device. Not on anticoagulation due to watchman device. 6. Coronary artery disease. Continue home medications. 7. Hyperlipidemia. Continue home medications. 8. Seizure disorder. Continue home medications. DVT Prophylaxis: Lovenox Disposition: Pending physical therapy VS,Fishbone, I+O VS, Fishbone, I+O Laboratory Tests 06/21/21 16:02 06/21/21 18:18 06/22/21 05:49 Vital Signs Date Time Temp Pulse Resp B/P (MAP) Pulse Ox O2 Delivery O2 Flow Rate FiO2 06/22/21 08:30 15 06/22/21 08:18 136/72 06/22/21 08:17 77 06/22/21 08:00 Room Air 06/22/21 06:00 98.5 92 I&O- Last 24 Hours up to 6 AM 06/22/21 06:00 Intake Total 300 ml Balance 300 ml AD VAUGHN DO Jun 22, 2021 13:58
[2021-06-22 14:00] VITALS: BP 122/67
--- NOTE | 2021-06-22 19:19 | ECGEPIP ---
[facility] - ED Test Date: 2021-06-21 Pat Name: SHAD WASSEMRAN Department: Room: - Gender: Female [employer] Player: BERHANE : 1960 Requested By: Junaid Perez Order Number: [id number] Reading MD: Ishaan Coleman Measurements Intervals [place] Rate: 62 P: 16 NV: 176 QRS: -3 QRSD: 94 T: 50 QT: 438 QTc: 444 Interpretive Statements Normal sinus rhythm possible septal myocardial infarction, age undetermined posible LEFT VENTRICULAR HYPERTROPHY Nonspecific ST T wave changes cw 05/01/[address] T wave changes Electronically Signed on 06-22-2021 19:19:14 EDT by Ishaan Coleman
[2021-06-22] MEDS: ATORVASTATIN 20 MG TAB PO SCH (20:33)
[2021-06-22] MEDS: traZODone 50 MG TAB PO SCH (20:33)
[2021-06-22 22:00] VITALS: BP 114/57
[2021-06-23] MEDS: PERCOCET 5MG/325MG TAB PO PRN ×3 (00:39→20:12)
[2021-06-23 06:00] VITALS: BP 108/54
[2021-06-23 06:08] LABS: HEMATOCRIT 34.6 % (36.0-47.0); HEMOGLOBIN 11.3 g/dl (12.0-15.5); MEAN CORPUSCULAR HEMOGLOBIN 30.5 pg (27.0-33.0); MEAN CORPUSCULAR HGB CONC 32.7 g/dl (32.0-36.5); MEAN CORPUSCULAR VOLUME 93.5 fl (80.0-96.0); PLATELET COUNT, AUTOMATED 261 10^3/uL (150-450); WHITE BLOOD COUNT 7.3 10^3/uL (4.0-10.0)
[2021-06-23 06:28] LABS: CALCIUM LEVEL 8.2 MG/DL (8.8-10.2); CREATININE FOR GFR 1.14 MG/DL (0.55-1.30); GLOMERULAR FILTRATION RATE 51.6 (>45); MAGNESIUM LEVEL 2.2 MG/DL (1.8-2.4); POTASSIUM SERUM 4.7 MEQ/L (3.5-5.1)
[2021-06-23] MEDS: HumaLOG INSULIN (NovoLOG) PER UNIT SC SCH ×3 (07:30→18:18)
[2021-06-23] MEDS: LOSARTAN 50MG TABLET PO SCH (09:00)
[2021-06-23] MEDS: LEVEMIR (INSULIN DETEMIR) 1 UNITS/0.01ML SC SCH (09:00)
[2021-06-23] MEDS: DULoxetine 30 MG CAP (CYMBALTA) PO SCH ×2 (09:30→20:11)
[2021-06-23] MEDS: ASPIRIN ENTERIC 325 MG TAB PO SCH (09:30)
[2021-06-23] MEDS: VITAMIN D 1,000 INTERNATIONAL UNITS TABLET PO SCH (09:30)
[2021-06-23] MEDS: ALPRAZolam 0.5 MG TAB PO SCH ×2 (09:30→20:11)
[2021-06-23] MEDS: CALCITRIOL 0.25 MCG CAP (S0169) PO SCH (09:30)
[2021-06-23] MEDS: ENOXAPARIN 40MG/0.4ML SYRINGE (J1650 PER 10MG) SC SCH (09:30)
[2021-06-23] MEDS: bisoproloL fumarate 10 MG TAB PO SCH (09:31)
--- NOTE | 2021-06-23 12:53 | IPNPDOC ---
Text Note Date of Service The patient was seen on 06/23/21. NOTE Subjective: Patient is a 60-year-old female present to the emergency department after falling 2 days ago. Patient was admitted due to an inability to pass physical therapy home safety evaluation. Patient fractured her left ankle. Patient's only complaint is of pain in her left ankle. Review of systems: General: Patient denies fevers HEENT: Patient denies headaches Cardiovascular: Patient denies chest pain Respiratory: Patient denies shortness of breath, cough GI: Patient denies abdominal pain, nausea, vomiting, diarrhea : Patient denies increased frequency or pain with urination Extremities: Patient reports pain in her left ankle Neurological: Patient denies numbness or tingling in legs Physical exam: Vitals: See below General: Alert and oriented female who was sitting in the bedside chair and walked in the room. Patient did not appear to be in any acute distress. HEENT: Normocephalic, atraumatic, moist mucous membranes. Neck: No lymphadenopathy or thyromegaly Cardiac: Regular rate and rhythm, no murmurs, normal S1, normal S2 Pulm: Clear to auscultation bilaterally. No wheezes, rhonchi, rales Abd: Nondistended, nontender to palpation, normal bowel sounds Ext: No edema bilateral lower extremities, left ankle is splinted and she is neurovascularly intact distal to the splint Labs: See below Imaging: No new imaging has been performed. Assessment/plan: 60-year-old female presented after falling and fracturing her left ankle who was unable to be safely discharged from the emergency department due to inability to walk. 1. Left ankle fracture. Patient will need to continue with physical therapy. Orthopedic surgery deemed the patient not suitable for surgery at this time and will follow up in the office with her when she is discharged. Patient is struggling to walk around and will need more care at home. Patient is also the primary caregiver of her mother who she provides 24/7 care for which will also need to be addressed prior to her discharge as do not believe the patient is able to care for herself at this time as she is unable to walk without assistance and will need further durable medical equipment. I did speak with discharge planning about this and patient is trying to get family together to be able to take care of both her and her mother. 2. Diabetes mellitus. Continue patient's home medication regimen. Patient is on 4 units of rapid acting insulin with breakfast and dinner and 3 units at lunch. Patient's blood sugar was low so Levemir was held again this morning. 3. Hypertension. Continue patient's home medications with hold parameters. 4. Congestive heart failure, unknown ejection fraction. I do not have an echocardiogram on the medical record so I am unsure of her ejection fraction however, the patient does not appear to be in exacerbation today. 5. Atrial fibrillation status post watchman device. Not on anticoagulation due to a watchman device. Heart rate is controlled. 6. Coronary artery disease. Continue home medications. 7. Hyperlipidemia. Continue home medications. 8. Seizure disorder. Continue home medications. DVT Prophylaxis: Lovenox Disposition: Pending ability for the patient to move around and get home care. Patient will be made ALC status. VS,Karstenbone, I+O VS, Fishbone, I+O Laboratory Tests 06/23/21 05:32 Vital Signs Date Time Temp Pulse Resp B/P (MAP) Pulse Ox O2 Delivery O2 Flow Rate FiO2 06/23/21 10:16 16 06/23/21 09:31 66 06/23/21 09:00 118/56 06/23/21 06:00 97.0 90 Room Air I&O- Last 24 Hours up to 6 AM 06/23/21 05:59 Intake Total 1180 ml Output Total 900 ml Balance 280 ml AD VAUGHN DO Jun 23, 2021 12:53
[2021-06-23 14:00] VITALS: BP_SYST 108; BP_SYST 115; BP_DIAS 51; BP_DIAS 73
[2021-06-23] MEDS: ATORVASTATIN 20 MG TAB PO SCH (20:11)
[2021-06-23] MEDS: traZODone 50 MG TAB PO SCH (20:11)
[2021-06-24] MEDS: PERCOCET 5MG/325MG TAB PO PRN ×3 (04:38→22:21)
[2021-06-24 05:00] VITALS: BP 147/65
[2021-06-24 07:37] LABS: HEMATOCRIT 33.5 % (36.0-47.0); MEAN CORPUSCULAR HEMOGLOBIN 30.3 pg (27.0-33.0); MEAN CORPUSCULAR HGB CONC 32.8 g/dl (32.0-36.5); MEAN CORPUSCULAR VOLUME 92.3 fl (80.0-96.0); PLATELET COUNT, AUTOMATED 260 10^3/uL (150-450); RED BLOOD COUNT 3.63 10^6/uL (4.00-5.40)
[2021-06-24 08:03] LABS: BLOOD UREA NITROGEN 13 MG/DL (7-18); CALCIUM LEVEL 8.3 MG/DL (8.8-10.2); CARBON DIOXIDE LEVEL 31 MEQ/L (21-32); CHLORIDE LEVEL 105 MEQ/L (98-107); CREATININE FOR GFR 0.99 MG/DL (0.55-1.30); GLOMERULAR FILTRATION RATE > 60.0 (>45); GLUCOSE, FASTING 129 MG/DL (70-100); MAGNESIUM LEVEL 2.1 MG/DL (1.8-2.4); POTASSIUM SERUM 4.5 MEQ/L (3.5-5.1); SODIUM LEVEL 138 MEQ/L (136-145)
[2021-06-24] MEDS: DULoxetine 30 MG CAP (CYMBALTA) PO SCH ×2 (08:17→20:37)
[2021-06-24] MEDS: ALPRAZolam 0.5 MG TAB PO SCH ×2 (08:17→20:37)
[2021-06-24] MEDS: VITAMIN D 1,000 INTERNATIONAL UNITS TABLET PO SCH (08:17)
[2021-06-24] MEDS: CALCITRIOL 0.25 MCG CAP (S0169) PO SCH (08:17)
[2021-06-24] MEDS: bisoproloL fumarate 10 MG TAB PO SCH (08:18)
[2021-06-24] MEDS: LOSARTAN 50MG TABLET PO SCH (08:18)
[2021-06-24] MEDS: ASPIRIN ENTERIC 325 MG TAB PO SCH (08:18)
[2021-06-24] MEDS: ENOXAPARIN 40MG/0.4ML SYRINGE (J1650 PER 10MG) SC SCH (08:20)
[2021-06-24] MEDS: LEVEMIR (INSULIN DETEMIR) 1 UNITS/0.01ML SC SCH (08:20)
[2021-06-24] MEDS: HumaLOG INSULIN (NovoLOG) PER UNIT SC SCH ×3 (08:20→17:37)
[2021-06-24] MEDS: ATORVASTATIN 20 MG TAB PO SCH (20:37)
[2021-06-24] MEDS: traZODone 50 MG TAB PO SCH (20:37)
[2021-06-25 06:00] VITALS: BP 122/62
[2021-06-25 06:07] LABS: HEMATOCRIT 33.4 % (36.0-47.0); HEMOGLOBIN 10.9 g/dl (12.0-15.5); MEAN CORPUSCULAR HGB CONC 32.6 g/dl (32.0-36.5); PLATELET COUNT, AUTOMATED 282 10^3/uL (150-450); RED BLOOD COUNT 3.63 10^6/uL (4.00-5.40); WHITE BLOOD COUNT 6.4 10^3/uL (4.0-10.0)
[2021-06-25 06:34] LABS: BLOOD UREA NITROGEN 14 MG/DL (7-18); CALCIUM LEVEL 8.2 MG/DL (8.8-10.2); CARBON DIOXIDE LEVEL 28 MEQ/L (21-32); CHLORIDE LEVEL 107 MEQ/L (98-107); CREATININE FOR GFR 0.87 MG/DL (0.55-1.30); GLOMERULAR FILTRATION RATE > 60.0 (>45); GLUCOSE, FASTING 135 MG/DL (70-100); MAGNESIUM LEVEL 2.2 MG/DL (1.8-2.4); POTASSIUM SERUM 4.4 MEQ/L (3.5-5.1); SODIUM LEVEL 138 MEQ/L (136-145)
[2021-06-25] MEDS ORDERED: PERCOCET PO (08:31)
[2021-06-25] MEDS: LEVEMIR (INSULIN DETEMIR) 1 UNITS/0.01ML SC SCH (08:43)
[2021-06-25] MEDS: ENOXAPARIN 40MG/0.4ML SYRINGE (J1650 PER 10MG) SC SCH (08:43)
[2021-06-25] MEDS: HumaLOG INSULIN (NovoLOG) PER UNIT SC SCH (08:43)
[2021-06-25 08:44] VITALS: BP 122/62
[2021-06-25] MEDS: ASPIRIN ENTERIC 325 MG TAB PO SCH (08:44)
[2021-06-25] MEDS: bisoproloL fumarate 10 MG TAB PO SCH (08:44)
[2021-06-25] MEDS: DULoxetine 30 MG CAP (CYMBALTA) PO SCH (08:44)
[2021-06-25] MEDS: VITAMIN D 1,000 INTERNATIONAL UNITS TABLET PO SCH (08:44)
[2021-06-25] MEDS: CALCITRIOL 0.25 MCG CAP (S0169) PO SCH (08:44)
[2021-06-25] MEDS: ALPRAZolam 0.5 MG TAB PO SCH (08:45)
[2021-06-25] MEDS: LOSARTAN 50MG TABLET PO SCH (09:00)
[2021-06-25] MEDS: PERCOCET 5MG/325MG TAB PO PRN (09:37)
--- NOTE | 2021-06-25 12:52 | DS.PDOC ---
Discharge Summary General Date of Admission Jun 21, 2021 at 17:09 Date of Discharge 06/25/2021 Primary Care Physician: JENSEN ROSALES DO Attending Physician: AD VAUGHN DO Discharge Summary PROCEDURES PERFORMED DURING STAY: None. ADMITTING DIAGNOSES: 1. Left ankle fracture. 2. Diabetes mellitus 3. Pretension 4. Congestive heart failure, unknown ejection fraction 5. Atrial fibrillation status post watchman device 6. Coronary artery disease 7. Hyperlipidemia 8. Seizure disorder DISCHARGE DIAGNOSES: 1. Left ankle fracture. 2. Diabetes mellitus 3. Pretension 4. Congestive heart failure, unknown ejection fraction 5. Atrial fibrillation status post watchman device 6. Coronary artery disease 7. Hyperlipidemia 8. Seizure disorder COMPLICATIONS/CHIEF COMPLAINT: Closed Bimalleolar Avulsion Fx Of L Ankle. HISTORY OF PRESENT ILLNESS: Patient is a 60-year-old female who presented the emergency department on 06/21/2021 after falling and hurting her ankle. Patient states she stood up this morning and her knee locked causing her to fall. Patient was able to get up however, she instantly fell back down after putting weight on her left ankle. Patient was describing her left ankle is very painful and swollen. In the emergency department, patient was found to have a fracture. Orthopedics was consulted by the emergency department who stated the patient was not a surgical candidate and that the patient will be followed up upon disch arge to the hospital. Patient was going to be splinted and sent home from the emergency department however, patient was unable to use a walker and get around safely and failed a PT home safety evaluation. Patient was admitted to the hospital for further monitoring. Patient states she was in her usual state of health prior to falling this morning. Patient did not lose consciousness or hit her head. Patient is otherwise feeling well.. HOSPITAL COURSE: Patient did well throughout her hospitalization. Patient continue to work with physical therapy however, she was struggling getting up and down stairs which was necessary for getting into her house. A discharge plan was made with her son and his friends being able to help her get into the house. Patient was also set up with medical transportation to get to and from appointments. 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 Patient was able to get equipment that was necessary set up in her house. Patient continue work physical therapy and got stronger. Patient was initially made ALC on 06/23/2021. Patient was doing well and was deemed ready for discharge on 06/25/2021. Patient was sent home with 4 days of Percocet. I-stop was performed ([id number]) ensure the patient has not received any narcotic pain medications in the past 6 months. Patient does have Xanax 0.5 mg and I did talk with the patient about the interaction between narcotic pain medication and benzodiazepines. Patient is very receiving these in the hospital and has done w ell. Patient understands the interaction between this however, because of the acute pain due to her fracture, pain medication will be prescribed. DISCHARGE MEDICATIONS: Please see below. ALLERGIES: Please see below. PHYSICAL EXAMINATION ON DISCHARGE: VITAL SIGNS: Please see below. General: Alert and oriented female patient was laying in bed I walked in the room. Patient not appear to be in any acute distress. HEENT: Normocephalic, atraumatic, moist mucous membranes. Neck: No lymphadenopathy or thyromegaly Cardiac: Regular rate and rhythm, no murmurs, normal S1, normal S2 Pulm: Clear to auscultation bilaterally. No wheezes, rhonchi, rales Abd: Nondistended, nontender to palpation, normal bowel sounds Ext: No edema in the right lower extremity, left lower extremity is splinted and patient is neurovascularly intact distal to the splint LABORATORY DATA: Please see below. IMAGING: X-ray of the left ankle performed on 06/21/2021 is reported to show oblique fracture of the distal fibula with mild lateral displacement. There is somewhat comminuted fracture of the medial malleolus with slight lateral displacement. Left hip and pelvis x-ray performed on 06/21/2021 is reported to show no acute fracture dislocation. Lumbosacral spine x-ray performed on 06/21/2021 is reported to show stable mild compression deformities and degenerative changes. No acute abnormalities visualized. Tibia/fibular left x-ray performed on 06/21/2021 is reported to show distal tibial and fibular fractures. Chest x-ray performed on 06/21/2021 was aborted show no acute pulmonary disease. PROGNOSIS: Fair ACTIVITY: As tolerated. DIET: Consistent carbohydrate DISCHARGE PLAN: Discharged home with services DISPOSITION: 02-Home with home health services DISCHARGE INSTRUCTIONS: 1. Follow-up with your primary care provider within 3 to 5 days of discharge. 2. Call [facility] orthopedic practice and follow-up within 1 to 2 weeks 3. Return to the emergency department if your symptoms worsen. ITEMS TO FOLLOWUP ON ON OUTPATIENT: 1. Follow-up fracture healing. DISCHARGE CONDITION: Stable. TIME SPENT ON DISCHARGE: 35 minutes. Vital Signs/I&Os Vital Signs Date Time Temp Pulse Resp B/P (MAP) Pulse Ox O2 Delivery O2 Flow Rate FiO2 06/25/21 10:07 15 06/25/21 08:44 54 122/62 06/25/21 06:00 97.8 94 Room Air 06/24/21 05:00 93 I&O- Last 24 Hours up to 6 AM 06/25/21 06:00 Intake Total 1880 ml Output Total 1600 ml Balance 280 ml Laboratory Data Labs 24H Laboratory Tests 2 06/24/21 17:33: Bedside Glucose (Misc Panel) 197H 06/24/21 20:00: Bedside Glucose (Misc Panel) 187H 06/25/21 05:19: Nucleated Red Blood Cells % (auto) 0.0, Anion Gap 3L, Glomerular Filtration Rate > 60.0, Calcium Level 8.2L, Magnesium Level 2.2 CBC/BMP Laboratory Tests 06/25/21 05:19 FSBS Laboratory Tests Test 06/24/21 17:33 06/24/21 20:00 Range/Units Bedside Glucose (Misc Panel) 197 187 80-115 MG/DL Discharge Medications Scheduled Alprazolam (Xanax) 1 Mg Tablet, 1 MG PO BID, (Reported) Aspirin (Aspirin EC) 325 Mg Tablet.dr, 325 MG PO DAILY, (Reported) Atorvastatin Calcium (Atorvastatin Calcium) 80 Mg Tab, 80 MG PO QHS, (Reported) Bisoprolol Fumarate (Bisoprolol Fumarate) 10 Mg Tablet, 10 MG PO DAILY, (Reported) Calcitriol (Calcitriol) 0.25 Mcg Cap, 0.5 MCG PO DAILY, (Reported) Calcium Carbonate (Calcium) 600 Mg Tab, 600 MG PO BID, (Reported) Cholecalciferol (Vitamin D3) (Vitamin D3) 25 Mcg Tablet, 25 MCG PO DAILY, (Reported) Denosumab Injection (Prolia) 60 Mg/1 Ml Syringe, 60 MG SC ASDIRECTED, (Reported) EVERY 6 MONTHS Dulaglutide (Trulicity) 1.5 Mg/0.5 Ml Pen.injctr, 1.5 MG SC QWEEK, (Reported) MONDAYS Duloxetine Hcl (Cymbalta) 30 Mg Cap, 30 MG PO BID, (Reported) Insulin Aspart (Novolog Flexpen) 100 Unit/Ml Inj, 1 DOSE SC BID, (Reported) 4 UNITS WITH ADDITIONAL SLIDING SCALE COVERAGE, BREAKFAST AND DINNER Insulin Aspart (Novolog Flexpen) 100 Unit/1 Ml Insuln.pen, 1 DOSE SC DAILY, (Reported) 3 UNITS WITH ADDITIONAL SLIDING SCALE COVERAGE, TAKES AT LUNCH Insulin Glargine,Hum.rec.anlog (Lantus Solostar) 100 Unit/Ml Inj, 34 UNITS SC DAILY, (Reported) Insulin Glargine,Hum.rec.anlog (Lantus Solostar) 100 Unit/1 Ml Insuln.pen, 32 UNITS SC QHS, (Reported) Losartan Potassium (Losartan Potassium) 100 Mg Tablet, 100 MG PO DAILY, (Reported) [place]-3 Fatty Acids/Fish Oil (Fish Oil 1,000 mg Capsule) 1,000 Mg Cap, 1,000 MG PO BID, (Reported) Trazodone HCl (Trazodone HCl) 50 Mg Tab, 50 MG PO QHS, (Reported) PATIENT TAKES 1-2 TABS NIGHTLY Scheduled PRN Acetaminophen (Tylenol Extra Strength) 500 Mg Tablet, 500 MG PO QID PRN for PAIN LEVEL 1-4, (Reported) Nitroglycerin (Nitroglycerin) 0.4 Mg Sub, 0.4 MG SL NITRO PRN for CHEST PAIN, (Reported) Ondansetron HCl (Ondansetron HCl) 4 Mg Tab, 4 MG PO Q6H PRN for NAUSEA, (Reported) Oxycodone/Acetaminophen (Oxycodone-Acetaminophen 5-325) 1 Each Tablet, 1 TAB PO Q6HP PRN for PAIN LEVEL 6-10 Allergies Coded Allergies: bacitracin (Verified Allergy, Intermediate, raised rash, 05/01/19) neomycin (Verified Allergy, Intermediate, raised rash, 05/01/19) nickel (Verified Allergy, Intermediate, raised rash, 05/01/19) polymyxin B (Verified Allergy, Intermediate, raised rash, 05/01/19) Sulfa (Sulfonamide Antibiotics) (Verified Adverse Reaction, Intermediate, tachycardia, 05/01/19) levetiracetam (Verified Adverse Reaction, Intermediate, tachycardia, 05/01/19) lisinopril (Verified Adverse Reaction, Intermediate, tachycardia, 05/01/19) AD VAUGHN DO Jun 25, 2021 12:52
== END 2021-06-25 11:00 | disposition home health service (06) | DRG 563 ==
LOC: EDBD 09:47 → M ED 09:47 → M ED INP 17:09 → M MSPAV 21:02
PROVIDERS: ADMIT Family Medicine; ATTEND Family Medicine
DX: S82.832A Other fracture of upper and lower end of left fibula, initial encounter for closed fracture (principal); E11.9 Type 2 diabetes mellitus without complications; I50.9 Heart failure, unspecified; I25.2 Old myocardial infarction; I11.0 Hypertensive heart disease with heart failure; E78.5 Hyperlipidemia, unspecified; G40.909 Epilepsy, unspecified, not intractable, without status epilepticus; F32.9 Major depressive disorder, single episode, unspecified; F41.9 Anxiety disorder, unspecified; G43.909 Migraine, unspecified, not intractable, without status migrainosus; I48.91 Unspecified atrial fibrillation; Z95.5 Presence of coronary angioplasty implant and graft; Z95.0 Presence of cardiac pacemaker; Z98.41 Cataract extraction status, right eye; Z98.42 Cataract extraction status, left eye; Z87.891 Personal history of nicotine dependence; W01.0XXA Fall on same level from slipping, tripping and stumbling without subsequent striking against object, initial encounter; Y92.009 Unspecified place in unspecified non-institutional (private) residence as the place of occurrence of the external cause; Z79.82 Long term (current) use of aspirin; Z79.4 Long term (current) use of insulin; Z79.899 Other long term (current) drug therapy; Z20.822 Contact with and (suspected) exposure to COVID-19; Z88.1 Allergy status to other antibiotic agents; Z88.2 Allergy status to sulfonamides; Z88.8 Allergy status to other drugs, medicaments and biological substances; I25.10 Atherosclerotic heart disease of native coronary artery without angina pectoris

== ENCOUNTER → 2021-06-30 | Outpatient (CLI) | payer MEDICARE, BC, OTHER ==
[~2021-06-30] MED LIST changes: +CHOL10007 PO; +LOSA100T50 PO; +TRUL0.5I SC; +XANA1TAB2 PO
== END ==
LOC: M LABSMTC 09:20
PROVIDERS: ATTEND Anesthesiology
DX: Z01.818 Encounter for other preprocedural examination (principal); Z11.52 Encounter for screening for COVID-19
CPT/HCPCS: G0463; U0003

== ENCOUNTER 2021-07-05 11:45 | Day surgery (SDC) | payer MEDICARE, BC, OTHER ==
[~2021-07-05] VITALS: Ht 177.8 cm; Wt 89.7 kg
[~2021-07-05 11:45] MED LIST changes: +LR 1,000 ML IV ONE; +ceFAZolin SOD 1 GM in D5W MINI-BAG PLUS 50 ML IV SCH; +fentaNYL 100 MCG/2 ML INJECTION (J3010) IV PRN
[2021-07-05] MEDS ORDERED: ROPIvacaine 0.5% 30ML INJECTION (J2795 PER 1MG) XX ONE (13:05)
[2021-07-05] MEDS ORDERED: LIDOCAINE 1% MDV 20ML VIAL XX ONE (13:05)
[2021-07-05] MEDS ORDERED: dexameTHASONE 10MG/1ML VIAL PRES.FREE (J1100 PER 1MG) XX ONE (13:05)
[2021-07-05] MEDS ORDERED: LIDOCAINE W/EPINEPHRINE 1% 20ML VIAL As Ordered ONE (13:14)
[2021-07-05] MEDS: ceFAZolin SOD 1 GM in D5W MINI-BAG PLUS 50 ML IV SCH ×2 (13:15→14:31)
[2021-07-05] MEDS: MIDAZOLAM INJ 2MG/2ML VIAL (J2250 PER 1MG) IV PRN ×2 (13:30→13:33)
[2021-07-05] MEDS ORDERED: propofoL 200 MG/20 ML VIAL As Ordered ONE (14:15)
[2021-07-05] MEDS ORDERED: fentaNYL 250 MCG/5 ML INJECTION (J3010) As Ordered ONE (14:15)
[2021-07-05] MEDS ORDERED: LIDOCAINE 2% 100MG/5ML SDV (FOR ANES.) As Ordered ONE (14:15)
[2021-07-05] MEDS ORDERED: MIDAZOLAM INJ 2MG/2ML VIAL (J2250 PER 1MG) As Ordered ONE (14:16)
[2021-07-05] MEDS ORDERED: PHENYLephrine 500MCG 5ML (100MCG/ML) SYRINGE As Ordered ONE (15:08)
[2021-07-05] MEDS ORDERED: ePHEDrine SULFATE 25 MG/5 ML(5MG/ML) SYRINGE As Ordered ONE (15:23)
[2021-07-05] MEDS ORDERED: ACETAMINOPHEN 1000MG 100ML IV BTL (OFIRMEV) (J0131 PER 10MG) As Ordered ONE (16:14)
--- NOTE | 2021-07-05 16:35 | REP ---
INDICATION: LEFT ANKLE FRACTURE. COMPARISON: Left ankle 06/21/2021. TECHNIQUE: Multiple C-arm views left ankle. FINDINGS: There are 2 screws in the medial malleolus. There is a metallic plate and multiple screws in the distal fibula. Two of these screws extend into the tibia. The ankle mortise is anatomic. The osseous structures are well-aligned. IMPRESSION: 138 seconds of fluoroscopy time was utilized. <Electronically signed by Avni Burgos > 07/05/21 [id number]
--- NOTE | 2021-07-05 16:55 | ROOPDOC ---
[facility] Report Of Operation Report of Operation DATE OF PROCEDURE: 07/05/21 PREPROCEDURE DIAGNOSES: [Left bimalleolar ankle fracture.]. POSTPROCEDURE DIAGNOSES: [Left bimalleolar ankle fracture]. PROCEDURE PERFORMED: [Open duction internal fixation left bimalleolar ankle fracture, 6 hole fibular plate [place], 2 syndesmosis screws, Antonino two 4.0 cannulated partially threaded medial malleolar screws.]. SURGEON: [Delmer durán], FUSING MACHINE TENDER: [], ANESTHESIA: [General anesthetic]. ESTIMATED BLOOD LOSS: Approximately [30 cc] mL. COMPLICATIONS: [None]. REMARKS: . FINDINGS: [Bimalleolar ankle fracture. Frazier C comminuted fibular fracture. Comminuted medial malleolus fracture. Widening of the syndesmosis.] SPECIMENS REMOVED: DESCRIPTION OF PROCEDURE: [Patient was met in the holding area. Consent was confirmed and leg was marked. She had reduction in her swelling. SL IT. She opted to proceed with a left lower extremity block preop before the procedure with anesthesia. Patient was brought into the operative room here at [facility]. She is given a general anesthetic in usual manner. She is placed supine on the operative room table. Soft bump was placed under her left hip. Bone foam was used to elevate the leg. Tourniquet was applied to the left upper thigh but not inflated. Patient's left lower extremity was then prepped and draped from the knee down to the toes. Coban was used to isolate the toes. Under fluoroscopic guidance fracture level is identified. Made approximately 10 cm incision over the lateral aspect of the fibula. It was taken proximally not to damage the superficial peroneal nerve. It was not identified but blunt dissection was performed proximally around the peroneal tendons and muscle belly. The fracture was identified. Use a gentle open of the fracture site to get improved mobilization. Under fluoroscopic guidance we brought the fibula back out to length. The medial cortex seem to line up anatomically. There was some comminution posterior laterally on the fibula. Fibular reduction was held out to length using a K wire. The fibula was then reduced to a 6 hole Antonino fibular locking plate. The bone was first reduced using 2 nonlocking screws proximal and distal to the fracture. Once we thought we got near anatomic reduction. We ignored some the comminution posteriorly and immobilized the plate. We placed 2 syndesmosis screws across the syndesmosis approximately 2 cm above the joint. The screw seem to reduce the syndesmosis nicely. We thought the syndesmosis was anatomically reduced. We then placed locking screws to maintain the plate proximally and distally. We got 3 good screws proximally and 3 good screws distally. We now paid attention to the medial malleolus. Minimal gnosis was comminuted. We did not want to expose the comminution by significant dissection. The fracture seen to be relatively well reduced. We placed 2 parallel percutaneous wires from the tip of the malleolus medially into the distal tibia. We thought we had a near anatomic reduction. We made stab incisions over the K wires down through the deltoid ligament. We then placed 2 partially threaded 4.0 cannulated screws with washers over the K wires. We thought we had a good reduction with minimal dissection. Wounds were then irrigated copious amounts of saline. Lateral incision was closed with 2-0 Vicryl and 3-0 Monocryl. We then used Dermabond and Steri- Strips to aid with the closure. Steri-Strips and sterile dressing was then applied to the stab incisions. Sterile dressing was applied to the lateral wound. Patient was placed in a well padded plaster splint below knee. She was awakened from anesthesia. Transferred to the stretcher in a stable manner. Plan: Discharge today on p.o. medication for pain DVT prophylaxis 81 mg aspirin twice a day. Nonweightbearing left lower extremity Follow-up in orthopedic office 2 weeks]. DELMER ALFARO MD Jul 05, 2021 16:55
[2021-07-05] MEDS ORDERED: fentaNYL 100 MCG/2 ML INJECTION (J3010) IV PRN (17:05)
[2021-07-05] MEDS ORDERED: HYDROMORPHONE HCL 0.5 MG/ 0.5 ML SYRINGE (J1170 PER 1) IV PRN (17:05)
[2021-07-05] MEDS ORDERED: oxyCODONE 5MG TAB PO PRN (17:05)
[2021-07-05] MEDS ORDERED: ONDANSETRON 4MG/2ML VIAL IV PRN (17:05)
[2021-07-05 17:45] VITALS: BP 129/59
[2021-07-05 18:15] VITALS: BP 135/71
[2021-07-05] MEDS: NS 1,000 ML IV SCH (19:15)
[2021-07-05] MEDS ORDERED: ONDANSETRON 4 MG ORAL DISINTEGRATING TAB PO PRN (21:40)
[2021-07-05] MEDS: oxyCODONE 5MG TAB PO PRN (22:02)
[2021-07-05 23:04] VITALS: BP 139/69
[2021-07-06 06:47] VITALS: BP 128/64
[2021-07-06] MEDS: NS 1,000 ML IV SCH (08:35)
[2021-07-06] MEDS ORDERED: OXYC1TAB23 PO (09:21)
[2021-07-06 10:00] VITALS: BP 139/64
[2021-07-06] MEDS: oxyCODONE 5MG TAB PO PRN ×3 (11:33→12:41)
[2021-07-06 14:00] VITALS: BP 129/68
== END 2021-07-06 14:50 | disposition home or self-care (01) ==
LOC: M SDC 11:45 → M MS5PR 17:40 → M SDC 07-06 14:50
PROVIDERS: ATTEND Orthopaedic Surgery
DX: S82.842A Displaced bimalleolar fracture of left lower leg, initial encounter for closed fracture (principal); X58.XXXA Exposure to other specified factors, initial encounter; Y92.89 Other specified places as the place of occurrence of the external cause; Y93.9 Activity, unspecified; Y99.9 Unspecified external cause status; I25.10 Atherosclerotic heart disease of native coronary artery without angina pectoris; I25.2 Old myocardial infarction; I10 Essential (primary) hypertension; E11.9 Type 2 diabetes mellitus without complications; E78.5 Hyperlipidemia, unspecified; Z98.61 Coronary angioplasty status; I48.91 Unspecified atrial fibrillation; M79.7 Fibromyalgia; F41.9 Anxiety disorder, unspecified; F32.9 Major depressive disorder, single episode, unspecified; Z79.4 Long term (current) use of insulin; Z79.82 Long term (current) use of aspirin; Z79.899 Other long term (current) drug therapy; Z88.2 Allergy status to sulfonamides; Z88.8 Allergy status to other drugs, medicaments and biological substances; Z87.891 Personal history of nicotine dependence
CPT/HCPCS: 27814; 76000; 97161; 97530; C1713; J0131; J0690; J1100; J2250; J2370; J2795; J3010; Q0162

== ENCOUNTER → 2021-07-19 | Outpatient (CLI) | payer MEDICARE, BC, OTHER ==
[~2021-07-19] MED LIST changes: -LR 1,000 ML IV ONE; +OXYC1TAB23 PO; -ceFAZolin SOD 1 GM in D5W MINI-BAG PLUS 50 ML IV SCH; -fentaNYL 100 MCG/2 ML INJECTION (J3010) IV PRN
--- NOTE | 2021-07-19 10:44 | REP ---
INDICATION: LT ANKLE FX FOLLOW UP. COMPARISON: Comparison radiographs June 21, 2021. TECHNIQUE: Four views of the left ankle. FINDINGS: Patient is status post open reduction internal fixation for bimalleolar fracture. For screw plate device in the fibula and medial malleolar screws in place. Normal alignment. There is some callus formation in associated with the posterior cortex of the distal fibular fracture. A plantar heel spur is noted. A small well corticated accessory ossicle is seen adjacent to the fibular tip. IMPRESSION: Healing bimalleolar fracture. Post ORIF. <Electronically signed by Tolu Murguia > 07/19/21 [id number]
== END ==
LOC: M SOG 09:47
PROVIDERS: ATTEND Orthopaedic Surgery
DX: Z47.89 Encounter for other orthopedic aftercare (principal); S82.842A Displaced bimalleolar fracture of left lower leg, initial encounter for closed fracture

== ENCOUNTER → 2021-08-02 | Outpatient (CLI) | payer MEDICARE, BC, OTHER ==
--- NOTE | 2021-08-02 11:31 | REP ---
INDICATION: ORTHOPEDIC AFTERCARE. COMPARISON: 06/21/2021 TECHNIQUE: AP, lateral, oblique views of the left ankle FINDINGS: Patient is status post satisfactory open reduction and fixation for by malleolar fractures. Overlying soft tissue swelling is decreased. Underlying age-related changes again noted. IMPRESSION: Mild decreased soft tissue swelling. Stable open reduction and fixation. <Electronically signed by Roman Watson > 08/02/21 [id number]
== END ==
LOC: M SOG 09:33
PROVIDERS: ATTEND Orthopaedic Surgery
DX: Z47.89 Encounter for other orthopedic aftercare (principal); M79.89 Other specified soft tissue disorders; Z87.81 Personal history of (healed) traumatic fracture

== ENCOUNTER → 2021-08-26 | Outpatient (CLI) | payer MEDICARE, BC, OTHER ==
--- NOTE | 2021-08-26 09:27 | REP ---
INDICATION: ORTHOPEDIC AFTERCARE. COMPARISON: 08/02/2021 TECHNIQUE: Three views FINDINGS: S/p ORIF status quo. Position and alignment unchanged. No new abnormality. IMPRESSION: No significant change <Electronically signed by James Hazel > 08/26/21 0923
== END ==
LOC: M SOG 08:26
PROVIDERS: ATTEND Orthopaedic Surgery
DX: Z47.89 Encounter for other orthopedic aftercare (principal)

== ENCOUNTER → 2021-09-19 | Outpatient (CLI) | payer MEDICARE, BC, OTHER ==
[~2021-09-19] MED LIST changes: +LOSA100T45 PO; -LOSA100T50 PO
== END ==
LOC: M SOG 08:39
PROVIDERS: ATTEND Orthopaedic Surgery
DX: Z47.89 Encounter for other orthopedic aftercare (principal); S82.892D Other fracture of left lower leg, subsequent encounter for closed fracture with routine healing; X58.XXXD Exposure to other specified factors, subsequent encounter; Y92.9 Unspecified place or not applicable; Y93.9 Activity, unspecified; Y99.9 Unspecified external cause status; M79.89 Other specified soft tissue disorders

== ENCOUNTER → 2021-09-29 | Outpatient (REF) ==
[~2021-09-29] MED LIST changes: -LOSA100T45 PO; +LOSA100T50 PO
== END ==
LOC: M LABSMTC 09:56
PROVIDERS: ATTEND Pediatrics
DX: Z20.822 Contact with and (suspected) exposure to COVID-19 (principal)

== ENCOUNTER → 2021-10-03 | Outpatient (REF) | payer MEDICARE, OTHER, BC ==
[2021-10-03 20:38] LABS: CALCIUM LEVEL 9.4 MG/DL (8.8-10.2); CREATININE FOR GFR 1.16 MG/DL (0.55-1.30); GLOMERULAR FILTRATION RATE 50.4 (>45); POTASSIUM SERUM 4.8 MEQ/L (3.5-5.1)
[2021-10-03 20:46] LABS: TOTAL 25(OH) VITAMIN D 31.5 NG/ML (30.0-100.0)
== END ==
LOC: M LABDRAWC 15:32
PROVIDERS: ATTEND Nurse Practitioner Family
DX: E11.22 Type 2 diabetes mellitus with diabetic chronic kidney disease (principal); Z79.899 Other long term (current) drug therapy

== ENCOUNTER → 2021-12-15 | Outpatient (CLI) | payer MEDICARE, BC ==
[~2021-12-15] MED LIST changes: +LOSA100T45 PO; -LOSA100T50 PO
== END ==
LOC: M CLY 10:43
PROVIDERS: ATTEND Internal Medicine Cardiovascular Disease
DX: R06.02 Shortness of breath (principal); I50.22 Chronic systolic (congestive) heart failure; I48.0 Paroxysmal atrial fibrillation; I47.2 Ventricular tachycardia

== ENCOUNTER → 2021-12-15 | Outpatient (REF) | payer MEDICARE, BC ==
[2021-12-15 16:39] LABS: ALBUMIN 4.3 GM/DL (3.2-5.2); BILIRUBIN,DIRECT 0.3 MG/DL (0.0-0.2); THYROID STIMULATING HORMONE 2.53 uIU/ML (0.358-3.740); TOTAL PROTEIN 7.4 GM/DL (6.4-8.2)
== END ==
LOC: M LABDRAWC 15:17
PROVIDERS: ATTEND Internal Medicine Cardiovascular Disease
DX: I50.22 Chronic systolic (congestive) heart failure (principal); I48.0 Paroxysmal atrial fibrillation; I47.2 Ventricular tachycardia

== ENCOUNTER → 2021-12-29 | Outpatient (REF) | payer MEDICARE, OTHER ==
[2021-12-29 16:15] LABS: BASO # 0.1 10^3/uL (0.0-0.2); BASO % 1.4 % (0.0-1.0); EOS # 0.2 10^3/uL (0.0-0.5); EOS % 2.2 % (0.0-3.0); HEMATOCRIT 51.5 % (36.0-47.0); HEMOGLOBIN 16.7 g/dl (12.0-15.5); LYMPH # 1.9 10^3/uL (1.5-5.0); LYMPH % 18.3 % (24.0-44.0); MEAN CORPUSCULAR HEMOGLOBIN 28.1 pg (27.0-33.0); MEAN CORPUSCULAR HGB CONC 32.4 g/dl (32.0-36.5); MEAN CORPUSCULAR VOLUME 86.6 fl (80.0-96.0); MONO # 0.8 10^3/uL (0.0-0.8); MONO % 7.4 % (2.0-8.0); NEUTROPHILS # 7.3 10^3/uL (1.5-8.5); NEUTROPHILS % 70.3 % (36.0-66.0); PLATELET COUNT, AUTOMATED 490 10^3/uL (150-450); RED BLOOD COUNT 5.95 10^6/uL (4.00-5.40); WHITE BLOOD COUNT 10.3 10^3/uL (4.0-10.0)
[2021-12-29 16:45] LABS: HEMOGLOBIN A1c 6.1 %
[2021-12-29 16:58] LABS: ALBUMIN 4.2 GM/DL (3.2-5.2); BILIRUBIN,TOTAL 0.8 MG/DL (0.2-1.0); CALCIUM LEVEL 10.7 MG/DL (8.8-10.2); CREATININE FOR GFR 2.27 MG/DL (0.55-1.30); FREE T4 1.4 NG/DL (0.76-1.46); GLOMERULAR FILTRATION RATE 23.2 (>45); POTASSIUM SERUM 4.6 MEQ/L (3.5-5.1); THYROID STIMULATING HORMONE 2.34 uIU/ML (0.358-3.740); TOTAL PROTEIN 7.3 GM/DL (6.4-8.2)
== END ==
LOC: M SFHCCLAY 12:44
PROVIDERS: ATTEND Physician Assistant
DX: R63.4 Abnormal weight loss (principal); R42 Dizziness and giddiness; D64.9 Anemia, unspecified; Z79.899 Other long term (current) drug therapy

== ENCOUNTER → 2022-01-03 | Outpatient (REF) | payer MEDICARE, OTHER ==
[2022-01-03 11:45] LABS: BASO # 0.1 10^3/uL (0.0-0.2); EOS # 0.2 10^3/uL (0.0-0.5); HEMATOCRIT 46.6 % (36.0-47.0); HEMOGLOBIN 14.8 g/dl (12.0-15.5); LYMPH # 1.4 10^3/uL (1.5-5.0); LYMPH % 16.2 % (24.0-44.0); MEAN CORPUSCULAR HEMOGLOBIN 28.1 pg (27.0-33.0); MEAN CORPUSCULAR HGB CONC 31.8 g/dl (32.0-36.5); MEAN CORPUSCULAR VOLUME 88.4 fl (80.0-96.0); MONO # 0.5 10^3/uL (0.0-0.8); MONO % 5.4 % (2.0-8.0); NEUTROPHILS # 6.3 10^3/uL (1.5-8.5); PLATELET COUNT, AUTOMATED 389 10^3/uL (150-450); RED BLOOD COUNT 5.27 10^6/uL (4.00-5.40); WHITE BLOOD COUNT 8.4 10^3/uL (4.0-10.0)
[2022-01-03 12:25] LABS: BILIRUBIN,TOTAL 0.6 MG/DL (0.2-1.0); CALCIUM LEVEL 9.3 MG/DL (8.8-10.2); CREATININE FOR GFR 1.7 MG/DL (0.55-1.30); GLOMERULAR FILTRATION RATE 32.4 (>45); POTASSIUM SERUM 4.6 MEQ/L (3.5-5.1); TOTAL PROTEIN 6.5 GM/DL (6.4-8.2)
== END ==
LOC: M SFHCCLAY 09:10
PROVIDERS: ATTEND Physician Assistant
DX: R42 Dizziness and giddiness (principal)

== ENCOUNTER → 2022-01-16 | Outpatient (REF) | payer MEDICARE, OTHER | LOC: M LAB REF 15:42 | PROVIDERS: ATTEND Nurse Practitioner | DX: R19.7 Diarrhea, unspecified (principal) ==

== ENCOUNTER → 2022-01-19 | Outpatient (REF) | payer MEDICARE, OTHER | LOC: M SFHCCLAY 11:10 | PROVIDERS: ATTEND Family Medicine | DX: Z12.4 Encounter for screening for malignant neoplasm of cervix (principal); R87.610 Atypical squamous cells of undetermined significance on cytologic smear of cervix (ASC-US) | CPT/HCPCS: 87624; G0123 ==

== ENCOUNTER → 2022-01-20 | Outpatient (REF) | payer MEDICARE, OTHER | LOC: M LAB REF 16:52 | PROVIDERS: ATTEND Internal Medicine Nephrology | DX: N39.0 Urinary tract infection, site not specified (principal) ==

== ENCOUNTER → 2022-03-02 | Outpatient (CLI) | payer MEDICARE, BC, OTHER | LOC: M WHC 09:30 | PROVIDERS: ATTEND Family Medicine | DX: Z12.31 Encounter for screening mammogram for malignant neoplasm of breast (principal) ==

== ENCOUNTER → 2022-03-07 | Outpatient (CLI) | payer MEDICARE, BC, OTHER | LOC: M PLAIMG 10:52 | PROVIDERS: ATTEND Physician Assistant | DX: R51.9 Headache, unspecified (principal); G40.909 Epilepsy, unspecified, not intractable, without status epilepticus; I65.21 Occlusion and stenosis of right carotid artery; Z86.73 Personal history of transient ischemic attack (TIA), and cerebral infarction without residual deficits ==

== ENCOUNTER → 2022-05-18 | Outpatient (REF) | payer MEDICARE, BC, OTHER ==
[2022-05-18 16:17] LABS: HEMATOCRIT 41.4 % (36.0-47.0); HEMOGLOBIN 13.5 g/dl (12.0-15.5); MEAN CORPUSCULAR HEMOGLOBIN 30.8 pg (27.0-33.0); MEAN CORPUSCULAR HGB CONC 32.6 g/dl (32.0-36.5); MEAN CORPUSCULAR VOLUME 94.5 fl (80.0-96.0); PLATELET COUNT, AUTOMATED 336 10^3/uL (150-450); RED BLOOD COUNT 4.38 10^6/uL (4.00-5.40); WHITE BLOOD COUNT 7.3 10^3/uL (4.0-10.0)
[2022-05-18 16:49] LABS: CALCIUM LEVEL 9.7 MG/DL (8.8-10.2); CREATININE FOR GFR 1.46 MG/DL (0.55-1.30); GLOMERULAR FILTRATION RATE 38.6 (>45); POTASSIUM SERUM 4.4 MEQ/L (3.5-5.1)
[2022-05-18 16:50] LABS: ALBUMIN 3.8 GM/DL (3.2-5.2); BILIRUBIN,TOTAL 0.5 MG/DL (0.2-1.0); TOTAL PROTEIN 6.8 GM/DL (6.4-8.2)
== END ==
LOC: M LABDRAWC 15:44
PROVIDERS: ATTEND Physician Assistant
DX: G40.909 Epilepsy, unspecified, not intractable, without status epilepticus (principal)

== ENCOUNTER → 2022-05-23 | Outpatient (CLI) | payer MEDICARE, BC, OTHER | LOC: M PLALAB 11:36 | PROVIDERS: ATTEND Internal Medicine Hematology | DX: I63.49 Cerebral infarction due to embolism of other cerebral artery (principal) ==

== ENCOUNTER → 2022-06-05 | Outpatient (REF) | payer MEDICARE, OTHER ==
[2022-06-05 15:32] LABS: ALBUMIN 3.7 GM/DL (3.2-5.2); BILIRUBIN,TOTAL 0.5 MG/DL (0.2-1.0); CREATININE FOR GFR 1.62 MG/DL (0.55-1.30); GLOMERULAR FILTRATION RATE 34.3 (>45); MAGNESIUM LEVEL 2.6 MG/DL (1.8-2.4); POTASSIUM SERUM 4.8 MEQ/L (3.5-5.1); TOTAL PROTEIN 6.6 GM/DL (6.4-8.2)
== END ==
LOC: M LABDRAWC 14:30
PROVIDERS: ATTEND Physician Assistant
DX: I50.22 Chronic systolic (congestive) heart failure (principal); I42.9 Cardiomyopathy, unspecified

== ENCOUNTER → 2022-06-13 | Outpatient (REF) | payer MEDICARE, OTHER ==
[2022-06-13 18:35] LABS: ALBUMIN 3.7 GM/DL (3.2-5.2); BILIRUBIN,TOTAL 0.5 MG/DL (0.2-1.0); CALCIUM LEVEL 8.3 MG/DL (8.8-10.2); CREATININE FOR GFR 1.37 MG/DL (0.55-1.30); GLOMERULAR FILTRATION RATE 41.6 (>45); MAGNESIUM LEVEL 2.3 MG/DL (1.8-2.4); POTASSIUM SERUM 4.4 MEQ/L (3.5-5.1); TOTAL PROTEIN 6.7 GM/DL (6.4-8.2)
== END ==
LOC: M LABDRAWC 17:08
PROVIDERS: ATTEND Physician Assistant
DX: I50.22 Chronic systolic (congestive) heart failure (principal); I42.9 Cardiomyopathy, unspecified

== ENCOUNTER → 2022-07-11 | Outpatient (REF) | payer MEDICARE, OTHER ==
[2022-07-11 18:54] LABS: CALCIUM LEVEL 9.6 MG/DL (8.8-10.2); CREATININE FOR GFR 1.43 MG/DL (0.55-1.30); GLOMERULAR FILTRATION RATE 39.5 (>45); POTASSIUM SERUM 5.1 MEQ/L (3.5-5.1)
== END ==
LOC: M LABDRAWC 17:22
PROVIDERS: ATTEND Physician Assistant
DX: I48.0 Paroxysmal atrial fibrillation (principal); I50.22 Chronic systolic (congestive) heart failure

== ENCOUNTER → 2022-08-17 | Outpatient (CLI) | payer MEDICARE, BC, OTHER ==
[~2022-08-17] MED LIST changes: +AMIO100T5 PO; +CLOP75TA2 PO; +DULO1CAP5 PO; +ECOT81TA5 PO; +FISH1CAP26 PO; +GABA-1171 PO; +LAMO100T3 PO; +OMEP-173 PO; +ROSU10TA6 PO
== END ==
LOC: M SLEEP 20:00
PROVIDERS: ATTEND Physician Assistant
DX: R06.83 Snoring (principal)

== ENCOUNTER → 2022-08-21 | Outpatient (CLI) | payer MEDICARE, BC, OTHER | LOC: M LABSMTC 11:36 | PROVIDERS: ATTEND Anesthesiology | DX: Z01.812 Encounter for preprocedural laboratory examination (principal); Z20.822 Contact with and (suspected) exposure to COVID-19 ==

== ENCOUNTER 2022-08-23 08:22 | Day surgery (SDC) | payer MEDICARE, BC, OTHER ==
[~2022-08-23] VITALS: Ht 177.8 cm; Wt 84.7 kg
[~2022-08-23 08:22] MED LIST changes: +BSS IRRIG/VANCO(10MG)/TOBRA(5MG)/EPINEPH(1:1000-0.5CC)500ML BAG-ORONLY IR ONE; +CEFUROXIME 1MG/0.1ML INTRACAMERAL INJ As Ordered ONE; +LIDOCAINE 1% SDV 5ML VIAL As Ordered ONE; +LIDOCAINE 3.5 % 1ML OPHTH TOPICAL GEL OU ONE; +OFLOXACIN 0.3 % (OCUFLOX) OPTH SOL 5ML OS ONE; +PHENYLEPHRINE HCL 10 % OPHTH. SOL 5ML OS PRN
[2022-08-23] MEDS: TROPICAMIDE 1% OPHTH SOLN 2ML OS SCH ×3 (09:59→11:04)
[2022-08-23] MEDS: PHENYLEPHRINE 2.5% OPHTH SOL 2ML OS SCH ×3 (09:59→11:04)
[2022-08-23] MEDS: CYCLOPENTOLATE 1% OPHTH SOLN 2 ML BTL OS SCH ×2 (09:59→11:03)
[2022-08-23] MEDS ORDERED: MIDAZOLAM INJ 2MG/2ML VIAL (J2250 PER 1MG) As Ordered ONE (10:45)
[2022-08-23] MEDS ORDERED: fentaNYL 100 MCG/2 ML INJECTION As Ordered ONE (10:57)
[2022-08-23 11:16] VITALS: BP 124/60
== END 2022-08-23 11:45 | disposition home or self-care (01) ==
LOC: M SDC 08:22
PROVIDERS: ATTEND Ophthalmology
DX: H25.12 Age-related nuclear cataract, left eye (principal); I13.0 Hypertensive heart and chronic kidney disease with heart failure and stage 1 through stage 4 chronic kidney disease, or unspecified chronic kidney disease; N18.30 Chronic kidney disease, stage 3 unspecified; I50.9 Heart failure, unspecified; E78.5 Hyperlipidemia, unspecified; E11.9 Type 2 diabetes mellitus without complications; K44.9 Diaphragmatic hernia without obstruction or gangrene; M79.7 Fibromyalgia; Z95.0 Presence of cardiac pacemaker; Z95.810 Presence of automatic (implantable) cardiac defibrillator; Z98.61 Coronary angioplasty status; I25.10 Atherosclerotic heart disease of native coronary artery without angina pectoris; I25.2 Old myocardial infarction; I48.91 Unspecified atrial fibrillation; Z79.899 Other long term (current) drug therapy; Z79.02 Long term (current) use of antithrombotics/antiplatelets; Z79.4 Long term (current) use of insulin; M81.0 Age-related osteoporosis without current pathological fracture; Z87.891 Personal history of nicotine dependence; F41.9 Anxiety disorder, unspecified; F32.A Depression, unspecified; G40.909 Epilepsy, unspecified, not intractable, without status epilepticus; Z86.73 Personal history of transient ischemic attack (TIA), and cerebral infarction without residual deficits
CPT/HCPCS: 66984; 92015; J0697; J2250; J3010; V2788

== ENCOUNTER → 2022-09-04 | Outpatient (CLI) | payer MEDICARE, BC, OTHER ==
[~2022-09-04] MED LIST changes: -BSS IRRIG/VANCO(10MG)/TOBRA(5MG)/EPINEPH(1:1000-0.5CC)500ML BAG-ORONLY IR ONE; -CEFUROXIME 1MG/0.1ML INTRACAMERAL INJ As Ordered ONE; -LIDOCAINE 1% SDV 5ML VIAL As Ordered ONE; -LIDOCAINE 3.5 % 1ML OPHTH TOPICAL GEL OU ONE; -OFLOXACIN 0.3 % (OCUFLOX) OPTH SOL 5ML OS ONE; -PHENYLEPHRINE HCL 10 % OPHTH. SOL 5ML OS PRN
== END ==
LOC: M LABSMTC 10:16
PROVIDERS: ATTEND Anesthesiology
DX: Z01.812 Encounter for preprocedural laboratory examination (principal); Z11.52 Encounter for screening for COVID-19

== ENCOUNTER 2022-09-06 07:22 | Day surgery (SDC) | payer MEDICARE, BC, OTHER ==
[~2022-09-06] VITALS: Ht 177.8 cm; Wt 87.1 kg
[~2022-09-06 07:22] MED LIST changes: +CEFUROXIME 1MG/0.1ML INTRACAMERAL INJ As Ordered ONE; +LIDOCAINE 1% 1ML PF SYRINGE (OR EYE CASES) As Ordered ONE
[2022-09-06] MEDS ORDERED: MIDAZOLAM INJ 2MG/2ML VIAL (J2250 PER 1MG) As Ordered ONE (08:31)
[2022-09-06] MEDS ORDERED: fentaNYL 100 MCG/2 ML INJECTION As Ordered ONE (08:31)
[2022-09-06] MEDS ORDERED: TROPICAMIDE 1% OPHTH SOLN 2ML OD SCH (08:35)
[2022-09-06] MEDS ORDERED: PHENYLEPHRINE 2.5% OPHTH SOL 2ML OD SCH (08:35)
[2022-09-06] MEDS ORDERED: BSS IRRIG/VANCO(10MG)/TOBRA(5MG)/EPINEPH(1:1000-0.5CC)500ML BAG-ORONLY IR ONE (08:35)
[2022-09-06] MEDS ORDERED: PHENYLEPHRINE HCL 10 % OPHTH. SOL 5ML OD PRN (08:35)
[2022-09-06] MEDS ORDERED: OFLOXACIN 0.3 % (OCUFLOX) OPTH SOL 5ML OD ONE (08:35)
[2022-09-06] MEDS ORDERED: LIDOCAINE 3.5 % 1ML OPHTH TOPICAL GEL OU ONE (08:35)
[2022-09-06] MEDS ORDERED: CYCLOPENTOLATE 1% OPHTH SOLN 2 ML BTL OD SCH (08:35)
[2022-09-06 09:18] VITALS: BP 116/66
== END 2022-09-06 09:38 | disposition home or self-care (01) ==
LOC: M SDC 07:22
PROVIDERS: ATTEND Ophthalmology
DX: H25.11 Age-related nuclear cataract, right eye (principal); I12.9 Hypertensive chronic kidney disease with stage 1 through stage 4 chronic kidney disease, or unspecified chronic kidney disease; E78.5 Hyperlipidemia, unspecified; I25.2 Old myocardial infarction; K44.9 Diaphragmatic hernia without obstruction or gangrene; M79.7 Fibromyalgia; M18.30 Unilateral post-traumatic osteoarthritis of first carpometacarpal joint, unspecified hand; F41.9 Anxiety disorder, unspecified; F32.A Depression, unspecified; E11.9 Type 2 diabetes mellitus without complications; Z98.61 Coronary angioplasty status; I48.91 Unspecified atrial fibrillation; Z87.891 Personal history of nicotine dependence; Z95.0 Presence of cardiac pacemaker; Z88.8 Allergy status to other drugs, medicaments and biological substances; Z88.2 Allergy status to sulfonamides; Z86.73 Personal history of transient ischemic attack (TIA), and cerebral infarction without residual deficits; Z79.82 Long term (current) use of aspirin; Z79.02 Long term (current) use of antithrombotics/antiplatelets; Z79.4 Long term (current) use of insulin
CPT/HCPCS: 66984; 92015; J0697; J2250; J3010; V2788

== ENCOUNTER → 2022-10-06 | Outpatient (REF) | payer MEDICARE, OTHER ==
[~2022-10-06] MED LIST changes: -CEFUROXIME 1MG/0.1ML INTRACAMERAL INJ As Ordered ONE; -LIDOCAINE 1% 1ML PF SYRINGE (OR EYE CASES) As Ordered ONE
[2022-10-06 18:18] LABS: CALCIUM LEVEL 9.8 MG/DL (8.3-10.6)
[2022-10-06 18:20] LABS: MALB URINE SIEMENS < 3.0 MG/DL; MAU/CREAT RATIO 11.5 MCG/MG (0.0-30.0)
[2022-10-06 18:24] LABS: TOTAL 25(OH) VITAMIN D 38.4 NG/ML (20.0-100.0)
== END ==
LOC: M LABDRAWC 17:23
PROVIDERS: ATTEND Internal Medicine Endocrinology, Diabetes & Metabolism
DX: E11.22 Type 2 diabetes mellitus with diabetic chronic kidney disease (principal); M81.0 Age-related osteoporosis without current pathological fracture

== ENCOUNTER → 2022-10-24 | Outpatient (REF) | payer MEDICARE, OTHER ==
[2022-10-24 18:19] LABS: HEMATOCRIT 43.7 % (36.0-47.0); HEMOGLOBIN 13.5 g/dl (12.0-15.5); MEAN CORPUSCULAR HEMOGLOBIN 29.1 pg (27.0-33.0); MEAN CORPUSCULAR HGB CONC 30.9 g/dl (32.0-36.5); MEAN CORPUSCULAR VOLUME 94.2 fl (80.0-96.0); PLATELET COUNT, AUTOMATED 337 10^3/uL (150-450); RED BLOOD COUNT 4.64 10^6/uL (4.00-5.40); WHITE BLOOD COUNT 7.1 10^3/uL (4.0-10.0)
[2022-10-24 18:51] LABS: THYROID STIMULATING HORMONE 0.795 uIU/ML (0.55-4.78)
[2022-10-24 18:52] LABS: FREE T4 1.33 NG/DL (0.89-1.76)
[2022-10-24 18:53] LABS: ALBUMIN 3.4 G/DL (3.2-5.2); BILIRUBIN,TOTAL 0.3 MG/DL (0.3-1.2); CALCIUM LEVEL 9.2 MG/DL (8.3-10.6); CHOLESTEROL RISK RATIO 2.22 (<5); CREATININE FOR GFR 1.7 MG/DL (0.55-1.30); GLOMERULAR FILTRATION RATE 32.3 (>45); HDL CHOLESTEROL 65.1 MG/DL (>40); LDL CHOLESTEROL 58.7 MG/DL (<100); POTASSIUM SERUM 4.8 MMOL/L (3.5-5.1); TOTAL PROTEIN 6.1 G/DL (5.7-8.2)
== END ==
LOC: M SFHCCLAY 10:37
PROVIDERS: ATTEND Nurse Practitioner Family
DX: E78.2 Mixed hyperlipidemia (principal); E11.22 Type 2 diabetes mellitus with diabetic chronic kidney disease; R53.82 Chronic fatigue, unspecified

== ENCOUNTER → 2022-11-08 | Outpatient (REF) | payer MEDICARE, OTHER | LOC: M LAB REF 17:21 | PROVIDERS: ATTEND Otolaryngology | DX: H60.11 Cellulitis of right external ear (principal) ==

== ENCOUNTER → 2022-12-04 | Outpatient (CLI) | payer MEDICARE, OTHER | LOC: M CLY 11:43 | PROVIDERS: ATTEND Nurse Practitioner | DX: K56.41 Fecal impaction (principal) ==

== ENCOUNTER → 2022-12-13 | Outpatient (CLI) | payer MEDICARE, OTHER | LOC: M CLY 14:21 | PROVIDERS: ATTEND Nurse Practitioner | DX: K59.00 Constipation, unspecified (principal) ==

== ENCOUNTER → 2023-01-01 | Outpatient (REF) | payer MEDICARE, OTHER ==
[2023-01-01 18:25] LABS: POTASSIUM SERUM 4.8 MMOL/L (3.5-5.1)
== END ==
LOC: M LAB REF 17:05
PROVIDERS: ATTEND Internal Medicine Nephrology
DX: N18.32 Chronic kidney disease, stage 3b (principal); N25.81 Secondary hyperparathyroidism of renal origin

== ENCOUNTER → 2023-01-02 | Outpatient (REF) | payer MEDICARE, OTHER | LOC: M LAB REF 17:12 | PROVIDERS: ATTEND Nurse Practitioner | DX: R19.7 Diarrhea, unspecified (principal) ==

== ENCOUNTER → 2023-02-15 | Outpatient (REF) | payer MEDICARE, OTHER ==
[~2023-02-15] MED LIST changes: -LOSA100T45 PO; +LOSA100T46 PO
[2023-02-15 18:47] LABS: HEMATOCRIT 46.5 % (36.0-47.0); HEMOGLOBIN 14.9 g/dl (12.0-15.5); MEAN CORPUSCULAR HEMOGLOBIN 28.9 pg (27.0-33.0); MEAN CORPUSCULAR VOLUME 90.3 fl (80.0-96.0); PLATELET COUNT, AUTOMATED 372 10^3/uL (150-450); RED BLOOD COUNT 5.15 10^6/uL (4.00-5.40); WHITE BLOOD COUNT 10.2 10^3/uL (4.0-10.0)
[2023-02-15 18:55] LABS: CALCIUM LEVEL 9.1 MG/DL (8.3-10.6); CREATININE FOR GFR 1.48 MG/DL (0.55-1.30); GLOMERULAR FILTRATION RATE 37.9 (>45); POTASSIUM SERUM 4.2 MMOL/L (3.5-5.1)
== END ==
LOC: M LAB REF 17:17 → M LABDRAWC 17:17
PROVIDERS: ATTEND Internal Medicine Cardiovascular Disease
DX: I48.0 Paroxysmal atrial fibrillation (principal); Z11.59 Encounter for screening for other viral diseases

== ENCOUNTER → 2023-02-20 | Outpatient (REF) | payer MEDICARE, OTHER ==
[2023-02-20 19:11] LABS: BASO # 0.1 10^3/uL (0.0-0.2); BASO % 1.1 % (0.0-1.0); EOS # 0.2 10^3/uL (0.0-0.5); HEMOGLOBIN 14.2 g/dl (12.0-15.5); LYMPH # 1.5 10^3/uL (1.5-5.0); LYMPH % 14.6 % (24.0-44.0); MEAN CORPUSCULAR HEMOGLOBIN 29.4 pg (27.0-33.0); MEAN CORPUSCULAR HGB CONC 32.3 g/dl (32.0-36.5); MEAN CORPUSCULAR VOLUME 91.1 fl (80.0-96.0); MONO # 0.5 10^3/uL (0.0-0.8); MONO % 5.2 % (2.0-8.0); NEUTROPHILS # 7.7 10^3/uL (1.5-8.5); NEUTROPHILS % 76.7 % (36.0-66.0); PLATELET COUNT, AUTOMATED 408 10^3/uL (150-450); RED BLOOD COUNT 4.83 10^6/uL (4.00-5.40)
[2023-02-20 19:31] LABS: C REACTIVE PROTEIN QUANTITATIV < 0.40 MG/DL (<1.0)
[2023-02-20 19:32] LABS: ALBUMIN 3.4 G/DL (3.2-5.2); ALKALINE PHOSPHATASE 105 U/L (46-116); ALT/SGPT 21 U/L (7.0-40); AST/SGOT 14 U/L (<34); BILIRUBIN,TOTAL 0.7 MG/DL (0.3-1.2); BLOOD UREA NITROGEN 24 MG/DL (9-23); CALCIUM LEVEL 9.4 MG/DL (8.3-10.6); CARBON DIOXIDE LEVEL 39 MMOL/L (20-31); CHLORIDE LEVEL 94 MMOL/L (98-107); CREATININE FOR GFR 1.61 MG/DL (0.55-1.30); GLOMERULAR FILTRATION RATE 34.4 (>45); GLUCOSE, FASTING 213 MG/DL (74-106); POTASSIUM SERUM 4.7 MMOL/L (3.5-5.1); SODIUM LEVEL 133 MMOL/L (136-145); TOTAL PROTEIN 6.4 G/DL (5.7-8.2)
[2023-02-20 19:42] LABS: ERYTHROCYTE SEDIMENTATION RATE 43 mm/hr (0-30)
== END ==
LOC: M LABDRAWC 17:20
PROVIDERS: ATTEND Physician Assistant
DX: G40.909 Epilepsy, unspecified, not intractable, without status epilepticus (principal)

== ENCOUNTER → 2023-03-08 | Outpatient (REF) | payer MEDICARE, OTHER ==
[2023-03-08 19:01] LABS: ALBUMIN 3.5 G/DL (3.2-5.2); BILIRUBIN,TOTAL 0.8 MG/DL (0.3-1.2); CALCIUM LEVEL 8.9 MG/DL (8.3-10.6); CREATININE FOR GFR 1.43 MG/DL (0.55-1.30); GLOMERULAR FILTRATION RATE 39.5 (>45); POTASSIUM SERUM 3.8 MMOL/L (3.5-5.1); TOTAL PROTEIN 6.6 G/DL (5.7-8.2)
[2023-03-08 19:02] LABS: C REACTIVE PROTEIN QUANTITATIV 0.6 MG/DL (<1.0)
== END ==
LOC: M LABDRAWC 17:37
PROVIDERS: ATTEND Physician Assistant
DX: R51.9 Headache, unspecified (principal); G40.909 Epilepsy, unspecified, not intractable, without status epilepticus; Z86.73 Personal history of transient ischemic attack (TIA), and cerebral infarction without residual deficits

== ENCOUNTER → 2023-03-08 | Outpatient (REF) | payer MEDICARE, OTHER ==
[2023-03-08 18:38] LABS: BASO # 0.1 10^3/uL (0.0-0.2); EOS # 0.1 10^3/uL (0.0-0.5); EOS % 1.3 % (0.0-3.0); HEMATOCRIT 45.1 % (36.0-47.0); HEMOGLOBIN 14.6 g/dl (12.0-15.5); LYMPH # 1.7 10^3/uL (1.5-5.0); LYMPH % 17.3 % (24.0-44.0); MEAN CORPUSCULAR HEMOGLOBIN 29.1 pg (27.0-33.0); MEAN CORPUSCULAR HGB CONC 32.4 g/dl (32.0-36.5); MONO # 0.5 10^3/uL (0.0-0.8); MONO % 5.6 % (2.0-8.0); NEUTROPHILS # 7.2 10^3/uL (1.5-8.5); NEUTROPHILS % 74.3 % (36.0-66.0); PLATELET COUNT, AUTOMATED 499 10^3/uL (150-450); RED BLOOD COUNT 5.01 10^6/uL (4.00-5.40); WHITE BLOOD COUNT 9.7 10^3/uL (4.0-10.0)
[2023-03-08 19:03] LABS: CALCIUM LEVEL 8.7 MG/DL (8.3-10.6); CREATININE FOR GFR 1.45 MG/DL (0.55-1.30); GLOMERULAR FILTRATION RATE 38.8 (>45); MAGNESIUM LEVEL 2.1 MG/DL (1.8-2.4); POTASSIUM SERUM 3.8 MMOL/L (3.5-5.1)
[2023-03-08 19:05] LABS: FREE T4 1.41 NG/DL (0.89-1.76); THYROID STIMULATING HORMONE 1.955 uIU/ML (0.55-4.78)
== END ==
LOC: M LABDRAWC 17:43
PROVIDERS: ATTEND Internal Medicine Cardiovascular Disease
DX: I49.2 Junctional premature depolarization (principal); I50.22 Chronic systolic (congestive) heart failure; I48.0 Paroxysmal atrial fibrillation; I25.10 Atherosclerotic heart disease of native coronary artery without angina pectoris; I25.5 Ischemic cardiomyopathy; R51.9 Headache, unspecified; G40.909 Epilepsy, unspecified, not intractable, without status epilepticus; Z86.73 Personal history of transient ischemic attack (TIA), and cerebral infarction without residual deficits

== ENCOUNTER → 2023-03-09 | Outpatient (CLI) | payer MEDICARE, OTHER, BC | LOC: M PLAIMG 11:43 | PROVIDERS: ATTEND Physician Assistant | DX: G40.909 Epilepsy, unspecified, not intractable, without status epilepticus (principal); G25.0 Essential tremor; Z86.73 Personal history of transient ischemic attack (TIA), and cerebral infarction without residual deficits ==

== ENCOUNTER → 2023-04-10 | Outpatient (REF) | payer MEDICARE, OTHER, BC ==
[~2023-04-10] MED LIST changes: +AMIO100T4 PO; -AMIO100T5 PO
== END ==
LOC: M LABDRAWC 11:41
PROVIDERS: ATTEND Nurse Practitioner Family
DX: M81.0 Age-related osteoporosis without current pathological fracture (principal)

== ENCOUNTER → 2023-06-06 | Outpatient (CLI) | payer MEDICARE, BC, OTHER ==
[~2023-06-06] MED LIST changes: -GABA-283 PO; +GABA-284 PO
[2023-06-06 14:02] LABS: BASO # 0.1 10^3/uL (0.0-0.2); BASO % 1.2 % (0.0-1.0); EOS # 0.3 10^3/uL (0.0-0.5); HEMATOCRIT 41.3 % (36.0-47.0); HEMOGLOBIN 13.1 g/dl (12.0-15.5); LYMPH # 1.5 10^3/uL (1.5-5.0); LYMPH % 20.1 % (24.0-44.0); MEAN CORPUSCULAR HEMOGLOBIN 29.4 pg (27.0-33.0); MEAN CORPUSCULAR HGB CONC 31.7 g/dl (32.0-36.5); MEAN CORPUSCULAR VOLUME 92.8 fl (80.0-96.0); MONO # 0.5 10^3/uL (0.0-0.8); MONO % 6.4 % (2.0-8.0); NEUTROPHILS % 67.8 % (36.0-66.0); PLATELET COUNT, AUTOMATED 324 10^3/uL (150-450); RED BLOOD COUNT 4.45 10^6/uL (4.00-5.40); WHITE BLOOD COUNT 7.3 10^3/uL (4.0-10.0)
[2023-06-06 14:34] LABS: CALCIUM LEVEL 9.4 MG/DL (8.3-10.6); CREATININE FOR GFR 1.24 MG/DL (0.55-1.30); GLOMERULAR FILTRATION RATE 46.5 (>45); POTASSIUM SERUM 4.7 MMOL/L (3.5-5.1)
== END ==
LOC: M PLALAB 11:49
PROVIDERS: ATTEND Internal Medicine Cardiovascular Disease
DX: I45.89 Other specified conduction disorders (principal)

== ENCOUNTER → 2023-06-06 | Outpatient (CLI) | payer MEDICARE, BC, OTHER | LOC: M PLAIMG 11:12 | PROVIDERS: ATTEND Physician Assistant | DX: G40.919 Epilepsy, unspecified, intractable, without status epilepticus (principal); G31.9 Degenerative disease of nervous system, unspecified; R90.82 White matter disease, unspecified; I45.89 Other specified conduction disorders ==

== ENCOUNTER → 2023-08-13 | Outpatient (CLI) | payer MEDICARE, BC, OTHER ==
[~2023-08-13] MED LIST changes: +LIDOCAINE 1% MDV 20ML VIAL As Ordered ONE; +XARE10TA PO
[2023-08-13 14:20] VITALS: TEMP 97.4
[2023-08-13 15:45] VITALS: BP 175/94; O2SAT 99
== END ==
LOC: M IRPRO 13:51
PROVIDERS: ATTEND Internal Medicine Nephrology
DX: N28.1 Cyst of kidney, acquired (principal)

== ENCOUNTER → 2023-09-11 | Outpatient (CLI) | payer MEDICARE, BC, OTHER ==
[~2023-09-11] MED LIST changes: -LIDOCAINE 1% MDV 20ML VIAL As Ordered ONE
== END ==
LOC: M WHC 12:45
PROVIDERS: ATTEND Nurse Practitioner Family
DX: Z12.31 Encounter for screening mammogram for malignant neoplasm of breast (principal)

== ENCOUNTER → 2023-09-18 | Outpatient (REF) | payer MEDICARE, BC, OTHER ==
[2023-09-18 20:16] LABS: CALCIUM LEVEL 9.3 MG/DL (8.3-10.6); CREATININE FOR GFR 1.55 MG/DL (0.55-1.30); GLOMERULAR FILTRATION RATE 35.8 (>45)
== END ==
LOC: M LABDRAWC 18:07
PROVIDERS: ATTEND Internal Medicine Cardiovascular Disease
DX: E78.2 Mixed hyperlipidemia (principal); I48.0 Paroxysmal atrial fibrillation; I50.22 Chronic systolic (congestive) heart failure; I25.10 Atherosclerotic heart disease of native coronary artery without angina pectoris; I25.5 Ischemic cardiomyopathy

== ENCOUNTER → 2023-09-18 | Outpatient (REF) | payer MEDICARE, BC, OTHER ==
[2023-09-18 20:20] LABS: BASO # 0.1 10^3/uL (0.0-0.2); BASO % 1.2 % (0.0-1.0); EOS # 0.2 10^3/uL (0.0-0.5); EOS % 2.4 % (0.0-3.0); HEMATOCRIT 42.5 % (36.0-47.0); HEMOGLOBIN 13.4 g/dl (12.0-15.5); LYMPH # 1.3 10^3/uL (1.5-5.0); LYMPH % 15.5 % (24.0-44.0); MEAN CORPUSCULAR HEMOGLOBIN 27.9 pg (27.0-33.0); MEAN CORPUSCULAR HGB CONC 31.5 g/dl (32.0-36.5); MEAN CORPUSCULAR VOLUME 88.5 fl (80.0-96.0); MONO # 0.7 10^3/uL (0.0-0.8); NEUTROPHILS % 72.4 % (36.0-66.0); PLATELET COUNT, AUTOMATED 450 10^3/uL (150-450); WHITE BLOOD COUNT 8.3 10^3/uL (4.0-10.0)
[2023-09-18 20:30] LABS: URIC ACID 4.6 MG/DL (3.1-7.8)
[2023-09-18 20:34] LABS: ALBUMIN 3.3 G/DL (3.2-5.2); ALKALINE PHOSPHATASE 107 U/L (46-116); ALT/SGPT 22 U/L (7.0-40); AST/SGOT 24 U/L (<34); BILIRUBIN,TOTAL 0.5 MG/DL (0.3-1.2); BLOOD UREA NITROGEN 17 MG/DL (9-23); CALCIUM LEVEL 9.3 MG/DL (8.3-10.6); CARBON DIOXIDE LEVEL 31 MMOL/L (20-31); CHLORIDE LEVEL 101 MMOL/L (98-107); CREATININE FOR GFR 1.54 MG/DL (0.55-1.30); GLOMERULAR FILTRATION RATE 36.1 (>45); GLUCOSE, FASTING 78 MG/DL (74-106); POTASSIUM SERUM 4.8 MMOL/L (3.5-5.1); SODIUM LEVEL 139 MMOL/L (136-145); TOTAL PROTEIN 6.4 G/DL (5.7-8.2)
[2023-09-18 20:35] LABS: ERYTHROCYTE SEDIMENTATION RATE 81 mm/hr (0-30)
[2023-09-18 21:37] LABS: RHEUMATOID FACTOR QUANT < 3.5 IU/ML (<14)
[2023-09-20 13:08] LABS: ANTINUCLEAR ANTIBODIES DIRECT Negative (Negative)
== END ==
LOC: M LABDRAWC 18:05
PROVIDERS: ATTEND Student in an Organized Health Care Education/Training Program
DX: M17.11 Unilateral primary osteoarthritis, right knee (principal); Z79.899 Other long term (current) drug therapy; E78.2 Mixed hyperlipidemia; I48.0 Paroxysmal atrial fibrillation; I50.22 Chronic systolic (congestive) heart failure; I25.10 Atherosclerotic heart disease of native coronary artery without angina pectoris; I25.5 Ischemic cardiomyopathy

== ENCOUNTER → 2023-10-23 | Outpatient (REF) | payer MEDICARE, BC, OTHER ==
[2023-10-23 17:51] LABS: BASO # 0.1 10^3/uL (0.0-0.2); EOS # 0.2 10^3/uL (0.0-0.5); HEMATOCRIT 40.9 % (36.0-47.0); HEMOGLOBIN 13.1 g/dl (12.0-15.5); LYMPH # 1.4 10^3/uL (1.5-5.0); LYMPH % 18.2 % (24.0-44.0); MEAN CORPUSCULAR HEMOGLOBIN 28.4 pg (27.0-33.0); MEAN CORPUSCULAR VOLUME 88.7 fl (80.0-96.0); MONO # 0.6 10^3/uL (0.0-0.8); MONO % 7.2 % (2.0-8.0); NEUTROPHILS # 5.4 10^3/uL (1.5-8.5); NEUTROPHILS % 70.3 % (36.0-66.0); PLATELET COUNT, AUTOMATED 331 10^3/uL (150-450); RED BLOOD COUNT 4.61 10^6/uL (4.00-5.40); WHITE BLOOD COUNT 7.7 10^3/uL (4.0-10.0)
[2023-10-23 18:03] LABS: ALBUMIN 3.4 G/DL (3.2-5.2); BILIRUBIN,TOTAL 0.4 MG/DL (0.3-1.2); CALCIUM LEVEL 8.4 MG/DL (8.3-10.6); CREATININE FOR GFR 1.26 MG/DL (0.55-1.30); GLOMERULAR FILTRATION RATE 45.5 (>45); POTASSIUM SERUM 4.5 MMOL/L (3.5-5.1); TOTAL PROTEIN 6.2 G/DL (5.7-8.2)
== END ==
LOC: M SFHCCLAY 12:47
PROVIDERS: ATTEND Nurse Practitioner Family
DX: I11.0 Hypertensive heart disease with heart failure (principal); E11.9 Type 2 diabetes mellitus without complications; I50.9 Heart failure, unspecified

== ENCOUNTER 2023-11-05 11:05 | Inpatient (IN) | payer MEDICARE, BC, OTHER ==
[~2023-11-05] VITALS: Ht 175.3 cm; Wt 89.2 kg
[~2023-11-05 11:05] MED LIST changes: +AMIODARONE 100MG TABLET (PACERONE) PO SCH; +bisoproloL fumarate 5 MG TAB PO SCH
[2023-11-05] MEDS ORDERED: ONDANSETRON 4MG TAB PO PRN (11:50)
[2023-11-05] MEDS ORDERED: BISACODYL 10MG SUPP PR PRN (12:05)
[2023-11-05] MEDS ORDERED: DEXTROSE 50% 50ML SYRINGE IV PRN (12:05)
[2023-11-05] MEDS ORDERED: NALOXONE 2MG/2ML SYRINGE PRN (12:05)
[2023-11-05] MEDS ORDERED: GLUCOSE 4GM CHEW TABLET PO PRN (12:05)
[2023-11-05] MEDS ORDERED: GLUCAGON INJ 1MG VIAL SC PRN (12:05)
[2023-11-05] MEDS ORDERED: ARTIFICIAL TEARS DROPS 15ML BTL (VISINE DRY RELIEF) OU SA PRN (12:05)
[2023-11-05] MEDS ORDERED: traZODone 50 MG TAB PO PRN (12:05)
[2023-11-05 13:15] VITALS: BP 118/59; TEMP 97.2; O2SAT 99
[2023-11-05 14:00] VITALS: BP 114/55; TEMP 97; O2SAT 98
[2023-11-05] MEDS ORDERED: MED REC IN PROGRESS XX SCH (14:05)
[2023-11-05] MEDS ORDERED: ESSE250T PO (14:56)
[2023-11-05] MEDS ORDERED: FURO20TA2 PO (14:56)
[2023-11-05] MEDS ORDERED: ENTR1TAB PO ×2 (14:56→15:25)
[2023-11-05] MEDS ORDERED: XARE20TA PO (14:56)
[2023-11-05] MEDS ORDERED: LAMO150T3 PO (14:56)
[2023-11-05] MEDS ORDERED: HOME MED LIST COMPLETE! XX SCH (15:00)
[2023-11-05] MEDS ORDERED: MAGN400T2 PO (15:25)
[2023-11-05] MEDS ORDERED: DOCU100C16 PO (15:25)
[2023-11-05] MEDS ORDERED: CYCL5TAB PO (15:25)
[2023-11-05] MEDS ORDERED: ACET1TAB55 PO (15:25)
[2023-11-05] MEDS ORDERED: BISA10SU27 PR (15:25)
[2023-11-05] MEDS ORDERED: OXYC-517 PO (15:27)
[2023-11-05] MEDS: ACETAMINOPHEN 500 MG TAB PO SCH ×2 (16:00→20:57)
[2023-11-05] MEDS: CYCLOBENZAPRINE 5MG TABLET PO PRN (16:39)
[2023-11-05] MEDS: oxyCODONE 5MG TAB PO PRN ×2 (16:40→20:54)
[2023-11-05] MEDS: CALCIUM CARBONATE 500 MG CHEW U/D PO SCH (17:59)
[2023-11-05] MEDS: INSULIN LISPRO (NovoLOG) PER UNIT SC SCH ×2 (17:59→20:42)
[2023-11-05 20:00] VITALS: BP 116/55; TEMP 99.7; O2SAT 95
[2023-11-05] MEDS: ALPRAZolam 0.5 MG TAB PO SCH (20:53)
[2023-11-05] MEDS: lamoTRIgine 100MG TAB PO SCH (20:53)
[2023-11-05] MEDS: ROSUVASTATIN 10 MG TAB (CRESTOR) PO SCH (20:53)
[2023-11-05] MEDS: GABAPENTIN 100 MG CAP PO SCH (20:53)
[2023-11-05] MEDS: ENTRESTO 24-26MG TABLET (SACUBITRIL/VALSARTAN) PO SCH (20:53)
[2023-11-05] MEDS: LEVEMIR (INSULIN DETEMIR) 1 UNITS/0.01ML SC SCH (20:54)
[2023-11-06] MEDS: oxyCODONE 5MG TAB PO PRN ×4 (02:34→21:07)
[2023-11-06 06:15] VITALS: BP 116/57; TEMP 98; O2SAT 96
[2023-11-06] MEDS: LACTULOSE 20GM/30ML SYRUP UDC PO PRN (06:23)
[2023-11-06 07:35] LABS: BASO # 0.1 10^3/uL (0.0-0.2); BASO % 0.7 % (0.0-1.0); EOS # 0.3 10^3/uL (0.0-0.5); HEMATOCRIT 33.4 % (36.0-47.0); LYMPH # 1.4 10^3/uL (1.5-5.0); MEAN CORPUSCULAR HEMOGLOBIN 28.4 pg (27.0-33.0); MEAN CORPUSCULAR HGB CONC 32.9 g/dl (32.0-36.5); MEAN CORPUSCULAR VOLUME 86.3 fl (80.0-96.0); MONO # 0.4 10^3/uL (0.0-0.8); MONO % 6.3 % (2.0-8.0); NEUTROPHILS # 4.6 10^3/uL (1.5-8.5); NEUTROPHILS % 67.6 % (36.0-66.0); PLATELET COUNT, AUTOMATED 270 10^3/uL (150-450); RED BLOOD COUNT 3.87 10^6/uL (4.00-5.40); WHITE BLOOD COUNT 6.8 10^3/uL (4.0-10.0)
[2023-11-06 07:57] LABS: ALBUMIN 2.4 G/DL (3.2-5.2); BILIRUBIN,TOTAL 0.7 MG/DL (0.3-1.2); CALCIUM LEVEL 8.2 MG/DL (8.3-10.6); CREATININE FOR GFR 1.02 MG/DL (0.55-1.30); GLOMERULAR FILTRATION RATE 58.1 (>45); POTASSIUM SERUM 3.9 MMOL/L (3.5-5.1); TOTAL PROTEIN 4.8 G/DL (5.7-8.2)
[2023-11-06] MEDS: VITAMIN D 1,000 INTERNATIONAL UNITS TABLET PO SCH (08:18)
[2023-11-06] MEDS: lamoTRIgine 100MG TAB PO SCH ×2 (08:18→21:07)
[2023-11-06] MEDS: MIRALAX *UNIT DOSE* 17GM PACKET PO SCH (08:19)
[2023-11-06] MEDS: GABAPENTIN 100 MG CAP PO SCH ×2 (08:19→21:06)
[2023-11-06] MEDS: MAGNESIUM OXIDE 400MG TAB (MAG-OX) PO SCH (08:19)
[2023-11-06] MEDS: AMIODARONE 100MG TABLET (PACERONE) PO SCH (08:19)
[2023-11-06] MEDS: ENTRESTO 24-26MG TABLET (SACUBITRIL/VALSARTAN) PO SCH ×2 (08:20→21:07)
[2023-11-06] MEDS: CALCITRIOL 0.25 MCG CAP (S0169) PO SCH (08:20)
[2023-11-06] MEDS: ASPIRIN 81MG ENTERIC TABLET PO SCH (08:20)
[2023-11-06] MEDS: bisoproloL fumarate 5 MG TAB PO SCH (08:20)
[2023-11-06] MEDS: FUROSEMIDE 20 MG TAB PO SCH (08:20)
[2023-11-06] MEDS: ALPRAZolam 0.5 MG TAB PO SCH ×2 (08:22→21:08)
[2023-11-06] MEDS: CALCIUM CARBONATE 500 MG CHEW U/D PO SCH ×2 (08:22→17:04)
[2023-11-06] MEDS: ACETAMINOPHEN 500 MG TAB PO SCH ×3 (08:22→21:06)
[2023-11-06] MEDS: INSULIN LISPRO (NovoLOG) PER UNIT SC SCH ×4 (08:23→21:06)
[2023-11-06 14:00] VITALS: BP 105/54; TEMP 97.6; O2SAT 96
[2023-11-06] MEDS: RIVAROXABAN 20MG TAB (XARELTO) PO SCH (17:04)
[2023-11-06 20:00] VITALS: BP 116/62; TEMP 99.2; O2SAT 96
[2023-11-06] MEDS: LEVEMIR (INSULIN DETEMIR) 1 UNITS/0.01ML SC SCH (21:05)
[2023-11-06] MEDS: ROSUVASTATIN 10 MG TAB (CRESTOR) PO SCH (21:07)
[2023-11-06] MEDS: traZODone 50 MG TAB PO SCH (21:07)
[2023-11-07 06:00] VITALS: BP 96/64; TEMP 98.2; O2SAT 96
[2023-11-07] MEDS: LACTULOSE 20GM/30ML SYRUP UDC PO PRN (06:40)
[2023-11-07] MEDS: oxyCODONE 5MG TAB PO PRN ×3 (06:40→20:21)
[2023-11-07] MEDS: AMIODARONE 100MG TABLET (PACERONE) PO SCH (08:30)
[2023-11-07] MEDS: ASPIRIN 81MG ENTERIC TABLET PO SCH (08:30)
[2023-11-07] MEDS: MAGNESIUM OXIDE 400MG TAB (MAG-OX) PO SCH (08:31)
[2023-11-07] MEDS: ALPRAZolam 0.5 MG TAB PO SCH ×2 (08:31→20:21)
[2023-11-07] MEDS: CALCITRIOL 0.25 MCG CAP (S0169) PO SCH (08:31)
[2023-11-07] MEDS: VITAMIN D 1,000 INTERNATIONAL UNITS TABLET PO SCH (08:31)
[2023-11-07] MEDS: GABAPENTIN 100 MG CAP PO SCH ×2 (08:31→20:20)
[2023-11-07] MEDS: lamoTRIgine 100MG TAB PO SCH ×2 (08:32→20:20)
[2023-11-07] MEDS: CYCLOBENZAPRINE 5MG TABLET PO PRN (08:32)
[2023-11-07] MEDS: CALCIUM CARBONATE 500 MG CHEW U/D PO SCH ×2 (08:32→17:31)
[2023-11-07] MEDS: FUROSEMIDE 20 MG TAB PO SCH (08:33)
[2023-11-07] MEDS: ACETAMINOPHEN 500 MG TAB PO SCH ×3 (08:33→20:22)
[2023-11-07] MEDS: MIRALAX *UNIT DOSE* 17GM PACKET PO SCH (08:33)
[2023-11-07] MEDS: INSULIN LISPRO (NovoLOG) PER UNIT SC SCH ×4 (08:35→20:23)
[2023-11-07 08:42] VITALS: BP 107/58
[2023-11-07] MEDS: ENTRESTO 24-26MG TABLET (SACUBITRIL/VALSARTAN) PO SCH ×2 (08:42→20:24)
[2023-11-07] MEDS: bisoproloL fumarate 5 MG TAB PO SCH (08:43)
[2023-11-07] MEDS ORDERED: LACTULOSE 20GM/30ML SYRUP UDC PO PRN (11:05)
[2023-11-07 14:00] VITALS: BP 118/55; TEMP 97.8; O2SAT 98
[2023-11-07] MEDS: RIVAROXABAN 20MG TAB (XARELTO) PO SCH (17:31)
[2023-11-07 20:00] VITALS: BP 106/58; TEMP 97.6; O2SAT 94
[2023-11-07] MEDS: traZODone 50 MG TAB PO SCH (20:20)
[2023-11-07] MEDS: ROSUVASTATIN 10 MG TAB (CRESTOR) PO SCH (20:21)
[2023-11-07] MEDS: LEVEMIR (INSULIN DETEMIR) 1 UNITS/0.01ML SC SCH (20:23)
[2023-11-08 06:32] VITALS: BP 103/57; TEMP 97.7; O2SAT 94
[2023-11-08] MEDS: CALCIUM CARBONATE 500 MG CHEW U/D PO SCH ×2 (08:00→16:57)
[2023-11-08] MEDS: CALCITRIOL 0.25 MCG CAP (S0169) PO SCH (08:13)
[2023-11-08] MEDS: ASPIRIN 81MG ENTERIC TABLET PO SCH (08:13)
[2023-11-08] MEDS: lamoTRIgine 100MG TAB PO SCH ×2 (08:14→20:26)
[2023-11-08] MEDS: CYCLOBENZAPRINE 5MG TABLET PO PRN ×2 (08:14→16:54)
[2023-11-08] MEDS: AMIODARONE 100MG TABLET (PACERONE) PO SCH (08:14)
[2023-11-08] MEDS: ALPRAZolam 0.5 MG TAB PO SCH ×2 (08:16→20:25)
[2023-11-08] MEDS: MIRALAX *UNIT DOSE* 17GM PACKET PO SCH (08:16)
[2023-11-08] MEDS: GABAPENTIN 100 MG CAP PO SCH ×2 (08:17→20:25)
[2023-11-08] MEDS: VITAMIN D 1,000 INTERNATIONAL UNITS TABLET PO SCH (08:21)
[2023-11-08] MEDS: bisoproloL fumarate 5 MG TAB PO SCH (08:21)
[2023-11-08] MEDS: ACETAMINOPHEN 500 MG TAB PO SCH ×3 (08:22→20:31)
[2023-11-08] MEDS: ENTRESTO 24-26MG TABLET (SACUBITRIL/VALSARTAN) PO SCH ×2 (08:22→20:31)
[2023-11-08] MEDS: oxyCODONE 5MG TAB PO PRN ×2 (08:23→12:55)
[2023-11-08] MEDS: INSULIN LISPRO (NovoLOG) PER UNIT SC SCH ×4 (08:24→20:31)
[2023-11-08] MEDS: MAGNESIUM OXIDE 400MG TAB (MAG-OX) PO SCH (08:24)
[2023-11-08] MEDS: FUROSEMIDE 20 MG TAB PO SCH (08:25)
[2023-11-08 14:00] VITALS: BP 105/55; TEMP 98.4; O2SAT 95
[2023-11-08] MEDS: RIVAROXABAN 20MG TAB (XARELTO) PO SCH (16:57)
[2023-11-08 20:00] VITALS: BP 105/52; TEMP 98.6; O2SAT 94
[2023-11-08] MEDS: LEVEMIR (INSULIN DETEMIR) 1 UNITS/0.01ML SC SCH (20:24)
[2023-11-08] MEDS: traZODone 50 MG TAB PO SCH (20:24)
[2023-11-08] MEDS: ROSUVASTATIN 10 MG TAB (CRESTOR) PO SCH (20:26)
[2023-11-09 06:00] VITALS: BP 106/59; TEMP 97.8; O2SAT 98
[2023-11-09] MEDS: MIRALAX *UNIT DOSE* 17GM PACKET PO SCH (08:37)
[2023-11-09] MEDS: GABAPENTIN 100 MG CAP PO SCH ×2 (08:38→21:35)
[2023-11-09] MEDS: CALCITRIOL 0.25 MCG CAP (S0169) PO SCH (08:38)
[2023-11-09] MEDS: ALPRAZolam 0.5 MG TAB PO SCH ×2 (08:38→21:33)
[2023-11-09] MEDS: INSULIN LISPRO (NovoLOG) PER UNIT SC SCH ×4 (08:38→21:00)
[2023-11-09] MEDS: FUROSEMIDE 20 MG TAB PO SCH (08:39)
[2023-11-09] MEDS: ASPIRIN 81MG ENTERIC TABLET PO SCH (08:39)
[2023-11-09] MEDS: CALCIUM CARBONATE 500 MG CHEW U/D PO SCH ×2 (08:39→18:28)
[2023-11-09] MEDS: AMIODARONE 100MG TABLET (PACERONE) PO SCH (08:39)
[2023-11-09] MEDS: VITAMIN D 1,000 INTERNATIONAL UNITS TABLET PO SCH (08:39)
[2023-11-09] MEDS: MAGNESIUM OXIDE 400MG TAB (MAG-OX) PO SCH (08:39)
[2023-11-09] MEDS: lamoTRIgine 100MG TAB PO SCH ×2 (08:40→21:34)
[2023-11-09] MEDS: ACETAMINOPHEN 500 MG TAB PO SCH ×3 (08:40→21:35)
[2023-11-09] MEDS: BISACODYL 10MG SUPP PR SCH (08:41)
[2023-11-09] MEDS: ENTRESTO 24-26MG TABLET (SACUBITRIL/VALSARTAN) PO SCH ×2 (08:43→21:00)
[2023-11-09] MEDS: bisoproloL fumarate 5 MG TAB PO SCH (08:44)
[2023-11-09] MEDS: oxyCODONE 5MG TAB PO PRN ×2 (11:04→21:37)
[2023-11-09 14:00] VITALS: BP 116/55; TEMP 97.5; O2SAT 96
[2023-11-09] MEDS ORDERED: OXYC-517 PO (16:28)
[2023-11-09] MEDS ORDERED: LANTINJ4 SC (16:28)
[2023-11-09] MEDS: RIVAROXABAN 20MG TAB (XARELTO) PO SCH (18:28)
[2023-11-09 20:00] VITALS: BP 109/53; TEMP 99.3; O2SAT 98
[2023-11-09] MEDS: traZODone 50 MG TAB PO SCH (21:35)
[2023-11-09] MEDS: LEVEMIR (INSULIN DETEMIR) 1 UNITS/0.01ML SC SCH (21:37)
[2023-11-09] MEDS: ROSUVASTATIN 10 MG TAB (CRESTOR) PO SCH (23:32)
[2023-11-09] MEDS: CYCLOBENZAPRINE 5MG TABLET PO PRN (23:37)
[2023-11-10 06:00] VITALS: BP 118/58; TEMP 98.1; O2SAT 98
[2023-11-10] MEDS: oxyCODONE 5MG TAB PO PRN (06:12)
[2023-11-10] MEDS: GABAPENTIN 100 MG CAP PO SCH (08:59)
[2023-11-10] MEDS: CALCITRIOL 0.25 MCG CAP (S0169) PO SCH (08:59)
[2023-11-10] MEDS: lamoTRIgine 100MG TAB PO SCH (08:59)
[2023-11-10] MEDS: ALPRAZolam 0.5 MG TAB PO SCH (08:59)
[2023-11-10] MEDS: ENTRESTO 24-26MG TABLET (SACUBITRIL/VALSARTAN) PO SCH (09:00)
[2023-11-10] MEDS: CALCIUM CARBONATE 500 MG CHEW U/D PO SCH (09:00)
[2023-11-10] MEDS: VITAMIN D 1,000 INTERNATIONAL UNITS TABLET PO SCH (09:00)
[2023-11-10] MEDS: ASPIRIN 81MG ENTERIC TABLET PO SCH (09:00)
[2023-11-10] MEDS: ACETAMINOPHEN 500 MG TAB PO SCH (09:00)
[2023-11-10] MEDS: AMIODARONE 100MG TABLET (PACERONE) PO SCH (09:00)
[2023-11-10 09:01] VITALS: BP 138/63
[2023-11-10] MEDS: bisoproloL fumarate 5 MG TAB PO SCH (09:01)
[2023-11-10] MEDS: FUROSEMIDE 20 MG TAB PO SCH (09:01)
[2023-11-10] MEDS: MAGNESIUM OXIDE 400MG TAB (MAG-OX) PO SCH (09:01)
[2023-11-10] MEDS: INSULIN LISPRO (NovoLOG) PER UNIT SC SCH (09:02)
[2023-11-10] MEDS: MIRALAX *UNIT DOSE* 17GM PACKET PO SCH (10:10)
[2023-11-10] MEDS: BISACODYL 10MG SUPP PR SCH (10:10)
== END 2023-11-10 11:30 | disposition home or self-care (01) | DRG 556 ==
LOC: M PM&R 12:54
PROVIDERS: ADMIT Student in an Organized Health Care Education/Training Program; ATTEND Student in an Organized Health Care Education/Training Program
DX: M25.562 Pain in left knee (principal); I50.22 Chronic systolic (congestive) heart failure; I13.0 Hypertensive heart and chronic kidney disease with heart failure and stage 1 through stage 4 chronic kidney disease, or unspecified chronic kidney disease; Z96.652 Presence of left artificial knee joint; I25.10 Atherosclerotic heart disease of native coronary artery without angina pectoris; G40.A09 Absence epileptic syndrome, not intractable, without status epilepticus; I95.1 Orthostatic hypotension; I48.91 Unspecified atrial fibrillation; E78.5 Hyperlipidemia, unspecified; N18.30 Chronic kidney disease, stage 3 unspecified; E11.22 Type 2 diabetes mellitus with diabetic chronic kidney disease; F32.A Depression, unspecified; F41.9 Anxiety disorder, unspecified; M79.7 Fibromyalgia; G62.9 Polyneuropathy, unspecified; K59.00 Constipation, unspecified; G89.29 Other chronic pain; M19.90 Unspecified osteoarthritis, unspecified site; R33.9 Retention of urine, unspecified; M85.10 Skeletal fluorosis, unspecified site; I25.5 Ischemic cardiomyopathy; G43.909 Migraine, unspecified, not intractable, without status migrainosus; R29.6 Repeated falls; I65.21 Occlusion and stenosis of right carotid artery; I25.2 Old myocardial infarction; Z96.642 Presence of left artificial hip joint; Z95.5 Presence of coronary angioplasty implant and graft; Z98.41 Cataract extraction status, right eye; Z98.42 Cataract extraction status, left eye; Z86.73 Personal history of transient ischemic attack (TIA), and cerebral infarction without residual deficits; Z74.1 Need for assistance with personal care; Z74.09 Other reduced mobility; Z87.891 Personal history of nicotine dependence; Z95.810 Presence of automatic (implantable) cardiac defibrillator; Z79.82 Long term (current) use of aspirin; Z79.4 Long term (current) use of insulin; Z79.899 Other long term (current) drug therapy; Z88.1 Allergy status to other antibiotic agents; Z88.2 Allergy status to sulfonamides; Z88.8 Allergy status to other drugs, medicaments and biological substances; Z91.048 Other nonmedicinal substance allergy status; Z95.2 Presence of prosthetic heart valve

== ENCOUNTER 2023-11-29 15:50 | Observation (INO) | payer MEDICARE, BC, OTHER ==
[~2023-11-29] VITALS: Ht 175.3 cm; Wt 84.5 kg
[~2023-11-29 15:50] MED LIST changes: +ACET1TAB55 PO; -AMIODARONE 100MG TABLET (PACERONE) PO SCH; +BISA10SU27 PR; +DOCU100C16 PO; +ENTR1TAB PO; +ESSE250T PO; +LAMO150T3 PO; +MAGN400T2 PO; +OXYC-517 PO; -bisoproloL fumarate 5 MG TAB PO SCH
[2023-11-29 17:28] LABS: BASO # 0.1 10^3/uL (0.0-0.2); BASO % 0.9 % (0.0-1.0); EOS # 0.2 10^3/uL (0.0-0.5); EOS % 3.4 % (0.0-3.0); HEMATOCRIT 41.4 % (36.0-47.0); HEMOGLOBIN 13.4 g/dl (12.0-15.5); LYMPH # 1.6 10^3/uL (1.5-5.0); LYMPH % 23.7 % (24.0-44.0); MEAN CORPUSCULAR HEMOGLOBIN 28.9 pg (27.0-33.0); MEAN CORPUSCULAR HGB CONC 32.4 g/dl (32.0-36.5); MEAN CORPUSCULAR VOLUME 89.2 fl (80.0-96.0); MONO # 0.5 10^3/uL (0.0-0.8); MONO % 7.4 % (2.0-8.0); NEUTROPHILS # 4.3 10^3/uL (1.5-8.5); PLATELET COUNT, AUTOMATED 301 10^3/uL (150-450); RED BLOOD COUNT 4.64 10^6/uL (4.00-5.40); WHITE BLOOD COUNT 6.8 10^3/uL (4.0-10.0)
[2023-11-29 17:44] LABS: CK-MB VALUE MASS < 1.0 NG/ML (<3.6)
[2023-11-29 17:45] LABS: CPK CREATINE PHOSPHOKINASE 17 U/L (34-145); MB/CK RELATIVE INDEX 5.88 (< OR =4)
[2023-11-29 17:46] LABS: ALBUMIN 3.6 G/DL (3.2-5.2); ALKALINE PHOSPHATASE 80 U/L (46-116); ALT/SGPT 18 U/L (7.0-40); AST/SGOT 14 U/L (<34); BILIRUBIN,DIRECT 0.2 MG/DL (<0.4); BILIRUBIN,TOTAL 0.6 MG/DL (0.3-1.2); BLOOD UREA NITROGEN 19 MG/DL (9-23); CALCIUM LEVEL 9.7 MG/DL (8.3-10.6); CARBON DIOXIDE LEVEL 37 MMOL/L (20-31); CHLORIDE LEVEL 98 MMOL/L (98-107); CREATININE FOR GFR 1.63 MG/DL (0.55-1.30); GLOMERULAR FILTRATION RATE 33.8 (>45); GLUCOSE, FASTING 134 MG/DL (74-106); POTASSIUM SERUM 3.8 MMOL/L (3.5-5.1); SODIUM LEVEL 139 MMOL/L (136-145); TOTAL PROTEIN 6.2 G/DL (5.7-8.2)
[2023-11-29 17:48] LABS: THYROID STIMULATING HORMONE 1.335 uIU/ML (0.55-4.78)
[2023-11-29] MEDS ORDERED: ISOVUE-370 76% 100ML VIAL As Ordered ONE (17:56)
[2023-11-29 17:57] LABS: PARTIAL THROMBOPLASTIN TIME 39.4 SECONDS (24.8-34.2)
[2023-11-29 18:10] LABS: MAGNESIUM LEVEL 2.2 MG/DL (1.8-2.4)
[2023-11-29 18:21] LABS: INR 2.41; PROTHROMBIN TIME 25.4 SECONDS (12.5-14.5)
[2023-11-29] MEDS ORDERED: ACET-683 PO (20:19)
[2023-11-29] MEDS ORDERED: BISO5TAB14 PO (20:31)
[2023-11-29] MEDS ORDERED: OXYC-517 PO (20:43)
[2023-11-29] MEDS ORDERED: LOSA25TA13 PO (20:57)
[2023-11-29] MEDS ORDERED: HOME MED LIST COMPLETE! XX SCH (21:00)
[2023-11-29] MEDS: cefTRIAXone SOD 1 GM in D5W MINI-BAG PLUS 50 ML IV ONE (21:12)
[2023-11-29] MEDS: NS 500 ML IV ONE (21:56)
[2023-11-29] MEDS: NS 1,000 ML IV SCH (22:37)
[2023-11-29] MEDS ORDERED: ACETAMINOPHEN TAB 650MG DOSE (2X325MG) PO PRN (23:20)
[2023-11-29] MEDS ORDERED: GLUCOSE 4GM CHEW TABLET PO PRN (23:20)
[2023-11-29] MEDS ORDERED: DEXTROSE 50% 50ML SYRINGE IV PRN (23:20)
[2023-11-29] MEDS ORDERED: GLUCAGON INJ 1MG VIAL SC PRN (23:20)
[2023-11-30] VITALS (7 sets, daily range): BP systolic 12–122; BP diastolic 55–65; TEMP 97–98; O2SAT 95–100
[2023-11-30] MEDS: PERCOCET 5MG/325MG TAB PO PRN (05:39)
[2023-11-30 07:36] LABS: ALBUMIN 3.1 G/DL (3.2-5.2); CALCIUM LEVEL 9.1 MG/DL (8.3-10.6); CREATININE FOR GFR 1.47 MG/DL (0.55-1.30); GLOMERULAR FILTRATION RATE 38.1 (>45); PHOSPHORUS LEVEL 3.4 MG/DL (2.4-5.1); POTASSIUM SERUM 3.7 MMOL/L (3.5-5.1)
[2023-11-30] MEDS: ASPIRIN 81MG ENTERIC TABLET PO SCH (08:41)
[2023-11-30] MEDS: INSULIN LISPRO (NovoLOG) PER UNIT SC SCH ×2 (08:41→21:00)
[2023-11-30] MEDS: bisoproloL fumarate 5 MG TAB PO SCH (08:42)
[2023-11-30] MEDS: ALPRAZolam 0.5 MG TAB PO SCH (08:42)
[2023-11-30] MEDS: AMIODARONE 100MG TABLET (PACERONE) PO SCH (08:42)
[2023-11-30] MEDS: CALCITRIOL 0.25 MCG CAP (S0169) PO SCH (08:42)
[2023-11-30] MEDS: ROSUVASTATIN 10 MG TAB (CRESTOR) PO SCH (08:43)
[2023-11-30] MEDS ORDERED: PILL CUTTER 1 EACH XX PRN (15:40)
[2023-11-30] MEDS: RIVAROXABAN 15MG TAB (XARELTO) PO SCH (17:14)
[2023-11-30] MEDS ORDERED: RIVAROXABAN 15MG TAB (XARELTO) PO SCH (18:00)
[2023-11-30] MEDS: lamoTRIgine 100MG TAB PO SCH (20:13)
[2023-12-01 03:37] VITALS: BP 116/59; TEMP 97.1; O2SAT 95
[2023-12-01 07:10] LABS: HEMATOCRIT 37.7 % (36.0-47.0); HEMOGLOBIN 12.1 g/dl (12.0-15.5); MEAN CORPUSCULAR HGB CONC 32.1 g/dl (32.0-36.5); MEAN CORPUSCULAR VOLUME 90.4 fl (80.0-96.0); PLATELET COUNT, AUTOMATED 240 10^3/uL (150-450); RED BLOOD COUNT 4.17 10^6/uL (4.00-5.40); WHITE BLOOD COUNT 5.7 10^3/uL (4.0-10.0)
[2023-12-01 07:35] LABS: CALCIUM LEVEL 9.7 MG/DL (8.3-10.6); CREATININE FOR GFR 1.2 MG/DL (0.55-1.30); GLOMERULAR FILTRATION RATE 48.1 (>45)
[2023-12-01 07:55] VITALS: BP 143/67; TEMP 98.1; O2SAT 96
[2023-12-01 08:03] VITALS: O2SAT 98
[2023-12-01 08:24] VITALS: BP 141/68
== END 2023-12-01 12:10 | disposition home or self-care (01) ==
LOC: EDBD 15:50 → M ED 15:50 → M ED INP 21:50 → M PCU 11-30 01:43
PROVIDERS: ADMIT Internal Medicine; ATTEND Internal Medicine
DX: M62.81 Muscle weakness (generalized) (principal); R42 Dizziness and giddiness; R47.81 Slurred speech; N17.9 Acute kidney failure, unspecified; N18.9 Chronic kidney disease, unspecified; M25.462 Effusion, left knee; I50.30 Unspecified diastolic (congestive) heart failure; I95.1 Orthostatic hypotension; I25.5 Ischemic cardiomyopathy; I25.10 Atherosclerotic heart disease of native coronary artery without angina pectoris; Z98.61 Coronary angioplasty status; I48.0 Paroxysmal atrial fibrillation; Z95.2 Presence of prosthetic heart valve; Z86.73 Personal history of transient ischemic attack (TIA), and cerebral infarction without residual deficits; I11.9 Hypertensive heart disease without heart failure; E78.5 Hyperlipidemia, unspecified; E11.9 Type 2 diabetes mellitus without complications; F41.9 Anxiety disorder, unspecified; G40.A09 Absence epileptic syndrome, not intractable, without status epilepticus; Z79.82 Long term (current) use of aspirin; Z79.899 Other long term (current) drug therapy; Z79.4 Long term (current) use of insulin; Z88.8 Allergy status to other drugs, medicaments and biological substances; Z79.01 Long term (current) use of anticoagulants; Z88.2 Allergy status to sulfonamides
CPT/HCPCS: 36415; 70450; 70496; 70498; 73560; 80048; 80069; 80076; 80175; 81001; 82550; 82553; 83735; 84443; 84484; 85025; 85027; 85610; 85730; 87086; 87486; 87581; 87633; 87798; 93005; 93306; 96365; 96375; 97161; 97165; 99285; G0378; G0463; J0696; J1815; Q9967

== ENCOUNTER → 2023-12-19 | Outpatient (REF) | payer MEDICARE, BC, OTHER ==
[~2023-12-19] MED LIST changes: +ACET-683 PO; +BISO5TAB14 PO; +LOSA25TA13 PO
[2023-12-19 18:21] LABS: ALBUMIN 3.6 G/DL (3.2-5.2); BILIRUBIN,TOTAL 0.4 MG/DL (0.3-1.2); CALCIUM LEVEL 10.1 MG/DL (8.3-10.6); CHOLESTEROL RISK RATIO 2.72 (<5); CREATININE FOR GFR 1.11 MG/DL (0.55-1.30); GLOMERULAR FILTRATION RATE 52.7 (>45); HDL CHOLESTEROL 45.5 MG/DL (>40); LDL CHOLESTEROL 62.5 MG/DL (<100); MAGNESIUM LEVEL 1.8 MG/DL (1.8-2.4); NON-HDL-C 78.5 MG/DL; POTASSIUM SERUM 4.8 MMOL/L (3.5-5.1); TOTAL PROTEIN 6.3 G/DL (5.7-8.2)
== END ==
LOC: M LABDRAWC 17:21
PROVIDERS: ATTEND Registered Nurse
DX: E78.2 Mixed hyperlipidemia (principal); I50.22 Chronic systolic (congestive) heart failure; R06.02 Shortness of breath

== ENCOUNTER 2024-01-07 16:49 | Inpatient (IN) | payer MEDICARE, BC, OTHER ==
[~2024-01-07] VITALS: Ht 175.3 cm; Wt 81.3 kg
[2024-01-07 18:03] LABS: BASO # 0.1 10^3/uL (0.0-0.2); BASO % 0.9 % (0.0-1.0); EOS # 0.2 10^3/uL (0.0-0.5); EOS % 3.5 % (0.0-3.0); HEMATOCRIT 41.1 % (36.0-47.0); HEMOGLOBIN 13.5 g/dl (12.0-15.5); LYMPH # 1.5 10^3/uL (1.5-5.0); LYMPH % 21.7 % (24.0-44.0); MEAN CORPUSCULAR HEMOGLOBIN 30.1 pg (27.0-33.0); MEAN CORPUSCULAR HGB CONC 32.8 g/dl (32.0-36.5); MEAN CORPUSCULAR VOLUME 91.5 fl (80.0-96.0); MONO # 0.5 10^3/uL (0.0-0.8); MONO % 6.8 % (2.0-8.0); NEUTROPHILS # 4.6 10^3/uL (1.5-8.5); PLATELET COUNT, AUTOMATED 303 10^3/uL (150-450); RED BLOOD COUNT 4.49 10^6/uL (4.00-5.40); WHITE BLOOD COUNT 6.9 10^3/uL (4.0-10.0)
[2024-01-07 18:12] VITALS: BP 132/67; TEMP 96.6; O2SAT 95
[2024-01-07 18:13] LABS: CK-MB VALUE MASS < 1.0 NG/ML (<3.6)
[2024-01-07 18:15] LABS: BLOOD UREA NITROGEN 19 MG/DL (9-23); CALCIUM LEVEL 10.1 MG/DL (8.3-10.6); CARBON DIOXIDE LEVEL 34 MMOL/L (20-31); CHLORIDE LEVEL 103 MMOL/L (98-107); CPK CREATINE PHOSPHOKINASE 24 U/L (34-145); CREATININE FOR GFR 1.17 MG/DL (0.55-1.30); GLOMERULAR FILTRATION RATE 49.6 (>45); GLUCOSE, FASTING 134 MG/DL (74-106); MB/CK RELATIVE INDEX 4.16 (< OR =4); POTASSIUM SERUM 4.3 MMOL/L (3.5-5.1); SODIUM LEVEL 140 MMOL/L (136-145)
[2024-01-07 18:16] LABS: INR 1.48; PARTIAL THROMBOPLASTIN TIME 35.1 SECONDS (24.8-34.2); PROTHROMBIN TIME 17.5 SECONDS (12.5-14.5)
[2024-01-07] MEDS: ACETAMINOPHEN TAB 650MG DOSE (2X325MG) PO ONE (20:01)
[2024-01-07] MEDS ORDERED: ISOVUE-370 76% 100ML VIAL As Ordered ONE (20:09)
[2024-01-07 20:11] LABS: VENOUS BASE EXCESS 4.7 (-2.0-2.0); VENOUS HCO3 29.4 MMOL/L (23.0-27.0); VENOUS O2 SATURATION 80.3 % (60.0-80.0); VENOUS PARTIAL PRESSURE O2 39.7 mmHg (30.0-50.0); VENOUS PH 7.443 UNITS (7.330-7.430); VENOUS STANDARD HCO3 28.2 MMOL/L; VENOUS TOTAL CO2 30.8 MMOL/L (24.0-28.0)
[2024-01-07] MEDS ORDERED: LANTINJ4 SC (20:41)
[2024-01-07] MEDS ORDERED: DAPA10TA5 PO (20:41)
[2024-01-07 20:43] LABS: CK-MB VALUE MASS < 1.0 NG/ML (<3.6)
[2024-01-07 20:44] LABS: LIPASE 26 U/L (12-53)
[2024-01-07 20:46] LABS: ALBUMIN 3.6 G/DL (3.2-5.2); ALKALINE PHOSPHATASE 62 U/L (46-116); ALT/SGPT 13 U/L (7.0-40); AST/SGOT 15 U/L (<34); BILIRUBIN,DIRECT 0.1 MG/DL (<0.4); BILIRUBIN,TOTAL 0.3 MG/DL (0.3-1.2); TOTAL PROTEIN 5.8 G/DL (5.7-8.2)
[2024-01-07 20:48] LABS: CPK CREATINE PHOSPHOKINASE 23 U/L (34-145); MB/CK RELATIVE INDEX 4.34 (< OR =4)
[2024-01-07] MEDS ORDERED: HOME MED LIST COMPLETE! XX SCH (20:50)
[2024-01-08] MEDS: cefTRIAXone SOD 1 GM in D5W MINI-BAG PLUS 50 ML IV ONE (00:16)
[2024-01-08] MEDS ORDERED: GLUCOSE 4GM CHEW TABLET PO PRN (00:55)
[2024-01-08] MEDS ORDERED: DEXTROSE 50% 50ML SYRINGE IV PRN (00:55)
[2024-01-08] MEDS ORDERED: GLUCAGON INJ 1MG VIAL SC PRN (00:55)
[2024-01-08] MEDS: NS 1,000 ML IV SCH (01:20)
[2024-01-08 01:22] LABS: RSV AMPLIFICATION NEGATIVE (NEGATIVE)
[2024-01-08] MEDS: ENTRESTO 24-26MG TABLET (SACUBITRIL/VALSARTAN) PO SCH (01:30)
[2024-01-08] MEDS: LEVEMIR (INSULIN DETEMIR) 1 UNITS/0.01ML SC SCH (01:31)
[2024-01-08] MEDS: ALPRAZolam 0.5 MG TAB PO SCH (01:31)
[2024-01-08] MEDS: lamoTRIgine 100MG TAB PO SCH (01:32)
[2024-01-08 01:57] LABS: MAGNESIUM LEVEL 2.1 MG/DL (1.8-2.4)
[2024-01-08 03:42] VITALS: BP 120/78; TEMP 97.1; O2SAT 97
[2024-01-08] MEDS: traZODone 50 MG TAB PO SCH (03:46)
[2024-01-08] MEDS: ONDANSETRON 4MG 2ML VIAL IV PRN (04:07)
[2024-01-08] MEDS: PERCOCET 5MG/325MG TAB PO PRN (04:08)
[2024-01-08] MEDS: INSULIN LISPRO (NovoLOG) PER UNIT SC SCH ×2 (07:30→20:39)
[2024-01-08 08:38] LABS: CALCIUM LEVEL 8.8 MG/DL (8.3-10.6); CREATININE FOR GFR 1.08 MG/DL (0.55-1.30); GLOMERULAR FILTRATION RATE 54.4 (>45); POTASSIUM SERUM 4.1 MMOL/L (3.5-5.1)
[2024-01-08] MEDS: CALCITRIOL 0.25 MCG CAP (S0169) PO SCH (08:47)
[2024-01-08] MEDS: ASPIRIN 81MG ENTERIC TABLET PO SCH (08:47)
[2024-01-08] MEDS: DAPAGLIFLOZIN PROPANEDIOL 10MG TABLET (FARXIGA) PO SCH (08:48)
[2024-01-08] MEDS: GABAPENTIN 100 MG CAP PO SCH (08:49)
[2024-01-08] MEDS: ROSUVASTATIN 10 MG TAB (CRESTOR) PO SCH (08:49)
[2024-01-08] MEDS: MAGNESIUM OXIDE 400MG TAB (MAG-OX) PO SCH (08:49)
[2024-01-08] MEDS: bisoproloL fumarate 5 MG TAB PO SCH (09:19)
[2024-01-08 09:46] LABS: BASO # 0.1 10^3/uL (0.0-0.2); BASO % 0.9 % (0.0-1.0); EOS # 0.2 10^3/uL (0.0-0.5); HEMATOCRIT 39.2 % (36.0-47.0); HEMOGLOBIN 12.9 g/dl (12.0-15.5); LYMPH # 1.3 10^3/uL (1.5-5.0); MEAN CORPUSCULAR HEMOGLOBIN 30.1 pg (27.0-33.0); MEAN CORPUSCULAR HGB CONC 32.9 g/dl (32.0-36.5); MEAN CORPUSCULAR VOLUME 91.6 fl (80.0-96.0); MONO # 0.3 10^3/uL (0.0-0.8); NEUTROPHILS # 3.4 10^3/uL (1.5-8.5); NEUTROPHILS % 63.7 % (36.0-66.0); PLATELET COUNT, AUTOMATED 247 10^3/uL (150-450); RED BLOOD COUNT 4.28 10^6/uL (4.00-5.40); WHITE BLOOD COUNT 5.3 10^3/uL (4.0-10.0)
[2024-01-08 14:00] VITALS: BP 91/58; TEMP 97.5; O2SAT 92
[2024-01-08 14:30] VITALS: BP 110/72
[2024-01-08] MEDS: RIVAROXABAN 20MG TAB (XARELTO) PO SCH (18:31)
[2024-01-08 20:10] VITALS: BP 118/64; TEMP 97.7; O2SAT 94
[2024-01-09] MEDS: cefTRIAXone SOD 1 GM in D5W MINI-BAG PLUS 50 ML IV SCH (00:22)
[2024-01-09 02:54] VITALS: O2SAT 93
[2024-01-09 06:00] VITALS: BP 117/66; TEMP 97.7; O2SAT 95
[2024-01-09 06:29] LABS: HEMATOCRIT 41.7 % (36.0-47.0); HEMOGLOBIN 13.5 g/dl (12.0-15.5); MEAN CORPUSCULAR HEMOGLOBIN 29.9 pg (27.0-33.0); MEAN CORPUSCULAR HGB CONC 32.4 g/dl (32.0-36.5); MEAN CORPUSCULAR VOLUME 92.3 fl (80.0-96.0); PLATELET COUNT, AUTOMATED 310 10^3/uL (150-450); RED BLOOD COUNT 4.52 10^6/uL (4.00-5.40); WHITE BLOOD COUNT 5.3 10^3/uL (4.0-10.0)
[2024-01-09 06:53] LABS: ALBUMIN 3.5 G/DL (3.2-5.2); ALKALINE PHOSPHATASE 182 U/L (46-116); ALT/SGPT 226 U/L (7.0-40); AST/SGOT 232 U/L (<34); BILIRUBIN,TOTAL 0.4 MG/DL (0.3-1.2); BLOOD UREA NITROGEN 13 MG/DL (9-23); CALCIUM LEVEL 9.1 MG/DL (8.3-10.6); CARBON DIOXIDE LEVEL 32 MMOL/L (20-31); CHLORIDE LEVEL 106 MMOL/L (98-107); CREATININE FOR GFR 1.11 MG/DL (0.55-1.30); GLOMERULAR FILTRATION RATE 52.7 (>45); GLUCOSE, FASTING 85 MG/DL (74-106); MAGNESIUM LEVEL 2.4 MG/DL (1.8-2.4); POTASSIUM SERUM 4.7 MMOL/L (3.5-5.1); SODIUM LEVEL 141 MMOL/L (136-145)
[2024-01-09 10:11] LABS: HEPATITIS B CORE ANTIBODY IGM NEGATIVE (NEGATIVE); HEPATITIS C VIRUS ABY INDEX 0.02 INDEX (<0.8)
[2024-01-09 14:00] VITALS: BP 104/57; TEMP 97.7; O2SAT 92
[2024-01-09 20:08] VITALS: BP 125/68; TEMP 98.9; O2SAT 96
[2024-01-10 05:36] VITALS: BP 108/70; TEMP 99.2; O2SAT 95
[2024-01-10 06:33] LABS: HEMATOCRIT 39.2 % (36.0-47.0); MEAN CORPUSCULAR HEMOGLOBIN 30.4 pg (27.0-33.0); MEAN CORPUSCULAR HGB CONC 33.2 g/dl (32.0-36.5); MEAN CORPUSCULAR VOLUME 91.8 fl (80.0-96.0); PLATELET COUNT, AUTOMATED 255 10^3/uL (150-450); RED BLOOD COUNT 4.27 10^6/uL (4.00-5.40); WHITE BLOOD COUNT 5.7 10^3/uL (4.0-10.0)
[2024-01-10 06:58] LABS: CALCIUM LEVEL 8.8 MG/DL (8.3-10.6); CREATININE FOR GFR 1.02 MG/DL (0.55-1.30); GLOMERULAR FILTRATION RATE 58.1 (>45); POTASSIUM SERUM 4.3 MMOL/L (3.5-5.1)
[2024-01-10 07:55] LABS: ALBUMIN 3.4 G/DL (3.2-5.2); BILIRUBIN,DIRECT 0.2 MG/DL (<0.4); BILIRUBIN,TOTAL 0.4 MG/DL (0.3-1.2); TOTAL PROTEIN 5.7 G/DL (5.7-8.2)
[2024-01-10 14:00] VITALS: BP 115/75; TEMP 97.5; O2SAT 97
[2024-01-10] MEDS: MORPHINE 2 MG/ML 1ML VIAL IV ONE (15:19)
[2024-01-10] MEDS: ACETAMINOPHEN TAB 650MG DOSE (2X325MG) PO PRN (17:27)
[2024-01-10 21:26] VITALS: O2SAT 89
[2024-01-10 22:00] VITALS: BP 112/57; TEMP 98.1; O2SAT 91
[2024-01-11 06:00] VITALS: BP 105/68; TEMP 97.5; O2SAT 94
[2024-01-11 06:30] LABS: HEMATOCRIT 39.8 % (36.0-47.0); MEAN CORPUSCULAR HEMOGLOBIN 29.8 pg (27.0-33.0); MEAN CORPUSCULAR HGB CONC 32.7 g/dl (32.0-36.5); MEAN CORPUSCULAR VOLUME 91.3 fl (80.0-96.0); PLATELET COUNT, AUTOMATED 246 10^3/uL (150-450); RED BLOOD COUNT 4.36 10^6/uL (4.00-5.40); WHITE BLOOD COUNT 5.3 10^3/uL (4.0-10.0)
[2024-01-11 06:53] LABS: ALBUMIN 3.2 G/DL (3.2-5.2); BILIRUBIN,DIRECT 0.2 MG/DL (<0.4); BILIRUBIN,TOTAL 0.5 MG/DL (0.3-1.2); CALCIUM LEVEL 8.9 MG/DL (8.3-10.6); CREATININE FOR GFR 1.1 MG/DL (0.55-1.30); GLOMERULAR FILTRATION RATE 53.2 (>45); POTASSIUM SERUM 4.6 MMOL/L (3.5-5.1); TOTAL PROTEIN 5.5 G/DL (5.7-8.2)
[2024-01-11 10:19] LABS: CHOLESTEROL RISK RATIO 2.7 (<5); HDL CHOLESTEROL 41.1 MG/DL (>40); LDL CHOLESTEROL 52.3 MG/DL (<100); NON-HDL-C 69.9 MG/DL
[2024-01-11] MEDS ORDERED: NALOXONE INJ 0.4MG/1ML VIAL IV PRN (13:55)
[2024-01-11 14:00] VITALS: BP 111/64; TEMP 98.1; O2SAT 95
[2024-01-11] MEDS: oxyCODONE 5MG TAB PO ONE (14:36)
[2024-01-11 18:07] LABS: IRON (FE) 39 UG/DL (50-170)
[2024-01-11 18:08] LABS: FERRITIN 41.5 NG/ML (7.3-270.7)
[2024-01-11 18:15] LABS: MONO REFLEX EBV VCA IgM NEGATIVE (NEGATIVE)
[2024-01-11] MEDS: LIDOCAINE 5% (LIDODERM) PATCH TD SCH (20:26)
[2024-01-11 21:26] VITALS: O2SAT 92
[2024-01-11 22:00] VITALS: BP 93/58; TEMP 97.7; O2SAT 95
[2024-01-11] MEDS: oxyCODONE 5MG TAB PO PRN (23:43)
[2024-01-12 04:30] VITALS: BP 161/82; TEMP 97.9; O2SAT 92
[2024-01-12 07:33] LABS: C REACTIVE PROTEIN QUANTITATIV < 0.40 MG/DL (<1.0)
[2024-01-12 07:42] LABS: ALBUMIN 3.5 G/DL (3.2-5.2); ALKALINE PHOSPHATASE 172 U/L (46-116); ALT/SGPT 112 U/L (7.0-40); AST/SGOT 84 U/L (<34); BILIRUBIN,DIRECT 0.2 MG/DL (<0.4); BILIRUBIN,TOTAL 0.5 MG/DL (0.3-1.2); BLOOD UREA NITROGEN 13 MG/DL (9-23); CALCIUM LEVEL 9.1 MG/DL (8.3-10.6); CARBON DIOXIDE LEVEL 31 MMOL/L (20-31); CHLORIDE LEVEL 106 MMOL/L (98-107); CREATININE FOR GFR 0.94 MG/DL (0.55-1.30); GLOMERULAR FILTRATION RATE > 60.0 (>45); GLUCOSE, FASTING 87 MG/DL (74-106); POTASSIUM SERUM 4.8 MMOL/L (3.5-5.1); SODIUM LEVEL 139 MMOL/L (136-145); TOTAL 25(OH) VITAMIN D 43.8 NG/ML (20.0-100.0); TOTAL PROTEIN 6.1 G/DL (5.7-8.2)
[2024-01-12 08:34] VITALS: BP 128/83
[2024-01-12] MEDS: oxyCODONE 5MG TAB PO ONE (09:17)
[2024-01-12] MEDS ORDERED: OXYC-517 PO (10:28)
[2024-01-12 10:52] LABS: CPK CREATINE PHOSPHOKINASE 22 U/L (34-145)
[2024-01-14 12:09] LABS: ANTINUCLEAR ANTIBODIES DIRECT Negative (Negative)
[2024-01-14 15:08] LABS: ANTINUCLEAR ANTIBODIES DIRECT Negative (Negative)
[2024-01-14 16:23] LABS: ALPHA 1 ANTITRYPSIN 168 mg/dL (101-187); ANTI-MITOCHONDRIAL ANTIBODY <20.0 Units (0.0-20.0); CERULOPLASMIN 20.5 mg/dL (19.0-39.0); CYTOMEGALOVIRUS IgM ANTIBODY <30.0 AU/mL (0.0-29.9); EBV VIRAL CAPSID AG IgM <36.0 U/mL (0.0-35.9); TRANSFERRIN 242 mg/dL (192-364)
== END 2024-01-12 14:12 | disposition home or self-care (01) | DRG 392 ==
LOC: M ED 16:49 → M ED INP 01-08 00:55 → ENRESERV 01-08 02:46 → M MSPAV 01-08 03:41
PROVIDERS: ADMIT Family Medicine; ATTEND General Practice
DX: R10.9 Unspecified abdominal pain (principal); I50.22 Chronic systolic (congestive) heart failure; I13.0 Hypertensive heart and chronic kidney disease with heart failure and stage 1 through stage 4 chronic kidney disease, or unspecified chronic kidney disease; I48.20 Chronic atrial fibrillation, unspecified; M80.08XA Age-related osteoporosis with current pathological fracture, vertebra(e), initial encounter for fracture; E11.22 Type 2 diabetes mellitus with diabetic chronic kidney disease; N18.30 Chronic kidney disease, stage 3 unspecified; I25.10 Atherosclerotic heart disease of native coronary artery without angina pectoris; E78.5 Hyperlipidemia, unspecified; I25.2 Old myocardial infarction; G40.A09 Absence epileptic syndrome, not intractable, without status epilepticus; Z86.73 Personal history of transient ischemic attack (TIA), and cerebral infarction without residual deficits; R16.1 Splenomegaly, not elsewhere classified; Z88.2 Allergy status to sulfonamides; Z88.8 Allergy status to other drugs, medicaments and biological substances; Z79.899 Other long term (current) drug therapy; Z79.82 Long term (current) use of aspirin; Z95.0 Presence of cardiac pacemaker; R29.6 Repeated falls; Z79.4 Long term (current) use of insulin; F41.9 Anxiety disorder, unspecified; F32.A Depression, unspecified; M79.7 Fibromyalgia; Z96.642 Presence of left artificial hip joint; Z95.2 Presence of prosthetic heart valve; Z98.41 Cataract extraction status, right eye; Z98.42 Cataract extraction status, left eye; Z87.891 Personal history of nicotine dependence

== ENCOUNTER → 2024-01-16 | Outpatient (REF) | payer MEDICARE, OTHER ==
[~2024-01-16] MED LIST changes: +DAPA10TA5 PO
[2024-01-16 11:59] LABS: THYROID STIMULATING HORMONE 1.453 uIU/ML (0.55-4.78)
[2024-01-16 12:00] LABS: FREE T4 1.51 NG/DL (0.89-1.76)
[2024-01-16 12:04] LABS: ALBUMIN 4.2 G/DL (3.2-5.2); BILIRUBIN,TOTAL 0.6 MG/DL (0.3-1.2); CALCIUM LEVEL 9.8 MG/DL (8.3-10.6); CHOLESTEROL RISK RATIO 2.77 (<5); CREATININE FOR GFR 1.18 MG/DL (0.55-1.30); GLOMERULAR FILTRATION RATE 49.1 (>45); LDL CHOLESTEROL 67.4 MG/DL (<100); MAGNESIUM LEVEL 2.1 MG/DL (1.8-2.4); POTASSIUM SERUM 4.5 MMOL/L (3.5-5.1); TOTAL PROTEIN 6.9 G/DL (5.7-8.2)
== END ==
LOC: M SFHCCLAY 09:05
PROVIDERS: ATTEND Nurse Practitioner Family
DX: R10.9 Unspecified abdominal pain (principal); N30.00 Acute cystitis without hematuria; E78.2 Mixed hyperlipidemia; I48.0 Paroxysmal atrial fibrillation; E11.22 Type 2 diabetes mellitus with diabetic chronic kidney disease; I50.9 Heart failure, unspecified

== ENCOUNTER → 2024-01-30 | Outpatient (REF) | payer MEDICARE, OTHER ==
[~2024-01-30] MED LIST changes: +TIZA4CAP3 PO; -TIZA4CAP6 PO
[2024-01-30 14:51] LABS: IRON (FE) 62 UG/DL (50-170)
[2024-01-30 14:52] LABS: ALBUMIN 3.7 G/DL (3.2-5.2); ALKALINE PHOSPHATASE 119 U/L (46-116); ALT/SGPT 25 U/L (7.0-40); AST/SGOT 14 U/L (<34); BILIRUBIN,DIRECT 0.3 MG/DL (<0.4); BILIRUBIN,TOTAL 0.7 MG/DL (0.3-1.2); PERCENT SATURATION 18.8 % (13.2-45.0); TOTAL IRON BINDING CAPACITY 329 UG/DL (250-425); TOTAL PROTEIN 6.3 G/DL (5.7-8.2)
[2024-01-30 14:53] LABS: FERRITIN 23.2 NG/ML (7.3-270.7)
[2024-01-30 15:30] LABS: HEPATITIS B SURFACE ANTIBODY POSITIVE (POSITIVE)
[2024-01-30 15:32] LABS: HEPATITIS C VIRUS ABY INDEX < 0.02 INDEX (<0.8)
[2024-02-02 00:08] LABS: ALPHA 1 ANTITRYPSIN 161 mg/dL (101-187); ANTI-MITOCHONDRIAL ANTIBODY <20.0 Units (0.0-20.0); ANTINUCLEAR ANTIBODIES DIRECT Negative (Negative); CERULOPLASMIN 23.1 mg/dL (19.0-39.0); HEPATITIS A IgG TOTAL Negative (Negative); LIVER-KIDNEY MICROSOMAL ABY <20.1 Units (0.0-20.0); TISSUE TRANSGLUTAMINASE IgA <2 U/mL (0-3)
== END ==
LOC: M LABDRAWC 12:17
PROVIDERS: ATTEND Nurse Practitioner
DX: R94.5 Abnormal results of liver function studies (principal); E78.00 Pure hypercholesterolemia, unspecified; Z86.39 Personal history of other endocrine, nutritional and metabolic disease; Z11.59 Encounter for screening for other viral diseases; Z72.89 Other problems related to lifestyle

== ENCOUNTER → 2024-02-18 | Outpatient (REF) | payer MEDICARE, OTHER ==
[2024-02-18 19:06] LABS: CALCIUM LEVEL 9.1 MG/DL (8.3-10.6); CREATININE FOR GFR 1.35 MG/DL (0.55-1.30); POTASSIUM SERUM 4.7 MMOL/L (3.5-5.1)
== END ==
LOC: M LABDRAWC 17:17
PROVIDERS: ATTEND Internal Medicine Cardiovascular Disease
DX: I50.22 Chronic systolic (congestive) heart failure (principal); R06.02 Shortness of breath

== ENCOUNTER → 2024-02-27 | Outpatient (REF) | payer MEDICARE, BC ==
[~2024-02-27] MED LIST changes: -ROSU10TA6 PO; +ROSU10TA61 PO
[2024-02-27 17:47] LABS: ALBUMIN 3.3 G/DL (3.2-5.2); BILIRUBIN,TOTAL 0.9 MG/DL (0.3-1.2); CALCIUM LEVEL 9.6 MG/DL (8.3-10.6); CREATININE FOR GFR 1.22 MG/DL (0.55-1.30); GLOMERULAR FILTRATION RATE 47.2 (>45); POTASSIUM SERUM 4.1 MMOL/L (3.5-5.1); TOTAL PROTEIN 6.1 G/DL (5.7-8.2)
== END ==
LOC: M SFHCCLAY 14:15
PROVIDERS: ATTEND Nurse Practitioner Family
DX: R74.8 Abnormal levels of other serum enzymes (principal)

== ENCOUNTER → 2024-03-20 | Outpatient (REF) | payer MEDICARE, BC ==
[2024-03-20 18:20] LABS: HEMATOCRIT 45.1 % (36.0-47.0); HEMOGLOBIN 14.5 g/dl (12.0-15.5); MEAN CORPUSCULAR HEMOGLOBIN 28.8 pg (27.0-33.0); MEAN CORPUSCULAR HGB CONC 32.2 g/dl (32.0-36.5); MEAN CORPUSCULAR VOLUME 89.5 fl (80.0-96.0); PLATELET COUNT, AUTOMATED 238 10^3/uL (150-450); RED BLOOD COUNT 5.04 10^6/uL (4.00-5.40); WHITE BLOOD COUNT 5.7 10^3/uL (4.0-10.0)
[2024-03-20 18:51] LABS: ALBUMIN 3.6 G/DL (3.2-5.2); ALKALINE PHOSPHATASE 87 U/L (46-116); ALT/SGPT 22 U/L (7.0-40); AST/SGOT 18 U/L (<34); BILIRUBIN,DIRECT 0.2 MG/DL (<0.4); BILIRUBIN,TOTAL 0.7 MG/DL (0.3-1.2)
== END ==
LOC: M LABDRAWC 17:28
PROVIDERS: ATTEND Nurse Practitioner
DX: R94.5 Abnormal results of liver function studies (principal); E78.00 Pure hypercholesterolemia, unspecified

== ENCOUNTER 2024-04-12 13:32 | Emergency (ER) | payer MEDICARE, BC ==
[~2024-04-12] VITALS: Ht 170.2 cm; Wt 77.3 kg
[2024-04-12] MEDS: oxyCODONE 5MG TAB PO ONE (14:42)
[2024-04-12 15:15] VITALS: BP 115/62; O2SAT 95
[2024-04-12] MEDS ORDERED: OXYC-517 PO (15:15)
[2024-04-12 15:29] VITALS: TEMP 97.5
== END 2024-04-12 15:30 | disposition home or self-care (01) ==
LOC: M ED 13:32 → EDBD 13:32 → M ED 15:30
DX: S00.93XA Contusion of unspecified part of head, initial encounter (principal); S80.02XA Contusion of left knee, initial encounter; M25.78 Osteophyte, vertebrae; W19.XXXA Unspecified fall, initial encounter; Y92.002 Bathroom of unspecified non-institutional (private) residence as the place of occurrence of the external cause; Y93.9 Activity, unspecified; Y99.9 Unspecified external cause status; E11.9 Type 2 diabetes mellitus without complications; I11.0 Hypertensive heart disease with heart failure; I25.2 Old myocardial infarction; M79.7 Fibromyalgia; F41.9 Anxiety disorder, unspecified; F32.A Depression, unspecified; N18.30 Chronic kidney disease, stage 3 unspecified; E78.5 Hyperlipidemia, unspecified; Z86.73 Personal history of transient ischemic attack (TIA), and cerebral infarction without residual deficits; Z79.4 Long term (current) use of insulin; Z79.82 Long term (current) use of aspirin; Z79.899 Other long term (current) drug therapy; Z88.2 Allergy status to sulfonamides; Z88.1 Allergy status to other antibiotic agents; Z88.8 Allergy status to other drugs, medicaments and biological substances

== ENCOUNTER → 2024-04-18 | Outpatient (REF) | payer MEDICARE, BC | LOC: M LABDRAWC 16:38 | PROVIDERS: ATTEND Nurse Practitioner Family | DX: M81.0 Age-related osteoporosis without current pathological fracture (principal) ==

== ENCOUNTER → 2024-04-23 | Outpatient (CLI) | payer MEDICARE, BC ==
[~2024-04-23] MED LIST changes: +ISOVUE-370 76% 100ML VIAL As Ordered ONE
== END ==
LOC: M RAD 14:48
PROVIDERS: ATTEND Ophthalmology
DX: S06.0X0A Concussion without loss of consciousness, initial encounter (principal); Y93.9 Activity, unspecified; Y92.9 Unspecified place or not applicable
CPT/HCPCS: 70470; 70481; Q9967

== ENCOUNTER 2024-05-30 11:52 | Emergency (ER) | payer MEDICARE, BC ==
[~2024-05-30] VITALS: Ht 170.2 cm; Wt 77.3 kg
[~2024-05-30 11:52] MED LIST changes: -ISOVUE-370 76% 100ML VIAL As Ordered ONE
[2024-05-30 12:02] VITALS: TEMP 98.1
[2024-05-30] MEDS: ACETAMINOPHEN 500 MG TAB PO ONE (16:10)
[2024-05-30 17:00] VITALS: BP 112/56
[2024-05-30 17:07] VITALS: O2SAT 93
== END 2024-05-30 17:20 | disposition home or self-care (01) ==
LOC: M ED 11:52
DX: S00.03XA Contusion of scalp, initial encounter (principal); S80.01XA Contusion of right knee, initial encounter; W10.8XXA Fall (on) (from) other stairs and steps, initial encounter; Y92.009 Unspecified place in unspecified non-institutional (private) residence as the place of occurrence of the external cause; Y93.9 Activity, unspecified; Y99.9 Unspecified external cause status; Z96.652 Presence of left artificial knee joint; Z96.642 Presence of left artificial hip joint; M85.80 Other specified disorders of bone density and structure, unspecified site; I48.91 Unspecified atrial fibrillation; I25.10 Atherosclerotic heart disease of native coronary artery without angina pectoris; I25.2 Old myocardial infarction; E11.9 Type 2 diabetes mellitus without complications; I12.9 Hypertensive chronic kidney disease with stage 1 through stage 4 chronic kidney disease, or unspecified chronic kidney disease; Z87.891 Personal history of nicotine dependence; Z79.4 Long term (current) use of insulin; Z79.899 Other long term (current) drug therapy; Z88.2 Allergy status to sulfonamides; Z88.1 Allergy status to other antibiotic agents; Z88.8 Allergy status to other drugs, medicaments and biological substances; Z91.89 Other specified personal risk factors, not elsewhere classified

== ENCOUNTER → 2024-06-05 | Outpatient (CLI) | payer MEDICARE, BC | LOC: M CLY 14:22 | PROVIDERS: ATTEND Physician Assistant | DX: R93.89 Abnormal findings on diagnostic imaging of other specified body structures (principal) ==

== ENCOUNTER → 2024-07-03 | Outpatient (REF) | payer MEDICARE, BC ==
[2024-07-03 11:18] LABS: ALBUMIN 3.8 G/DL (3.2-5.2); ALKALINE PHOSPHATASE 69 U/L (46-116); ALT/SGPT 18 U/L (7.0-40); AST/SGOT 14 U/L (<34); BILIRUBIN,TOTAL 0.6 MG/DL (0.3-1.2); BLOOD UREA NITROGEN 22 MG/DL (9-23); CALCIUM LEVEL 10.2 MG/DL (8.3-10.6); CARBON DIOXIDE LEVEL 34 MMOL/L (20-31); CHLORIDE LEVEL 108 MMOL/L (98-107); CHOLESTEROL LEVEL 127 MG/DL (<200); CHOLESTEROL RISK RATIO 2.73 (<5); CREATININE FOR GFR 1.49 MG/DL (0.55-1.30); GLOMERULAR FILTRATION RATE 37.4 (>45); GLUCOSE, FASTING 111 MG/DL (74-106); HDL CHOLESTEROL 46.4 MG/DL (>40); LDL CHOLESTEROL 56.8 MG/DL (<100); NON-HDL-C 80.6 MG/DL; POTASSIUM SERUM 4.4 MMOL/L (3.5-5.1); SODIUM LEVEL 140 MMOL/L (136-145); THYROID STIMULATING HORMONE 0.723 uIU/ML (0.55-4.78); TOTAL PROTEIN 6.6 G/DL (5.7-8.2); TRIGLYCERIDES LEVEL 119 MG/DL (<150)
[2024-07-03 11:20] LABS: FREE T4 1.42 NG/DL (0.89-1.76)
[2024-07-03 11:36] LABS: HEMOGLOBIN A1c 5.7 % (4.0-6.0)
== END ==
LOC: M SFHCCLAY 08:25
PROVIDERS: ATTEND Nurse Practitioner Family
DX: G45.9 Transient cerebral ischemic attack, unspecified (principal); E11.22 Type 2 diabetes mellitus with diabetic chronic kidney disease; I50.9 Heart failure, unspecified; I15.0 Renovascular hypertension; Z95.810 Presence of automatic (implantable) cardiac defibrillator; R42 Dizziness and giddiness; M16.12 Unilateral primary osteoarthritis, left hip; G40.909 Epilepsy, unspecified, not intractable, without status epilepticus; M54.40 Lumbago with sciatica, unspecified side; M23.242 Derangement of anterior horn of lateral meniscus due to old tear or injury, left knee

== ENCOUNTER → 2024-07-08 | Outpatient (CLI) | payer MEDICARE, BC ==
[2024-07-08 19:28] LABS: HEMATOCRIT 41.9 % (36.0-47.0); HEMOGLOBIN 13.4 g/dl (12.0-15.5); MEAN CORPUSCULAR HEMOGLOBIN 29.3 pg (27.0-33.0); MEAN CORPUSCULAR VOLUME 91.7 fl (80.0-96.0); PLATELET COUNT, AUTOMATED 184 10^3/uL (150-450); RED BLOOD COUNT 4.57 10^6/uL (4.00-5.40); WHITE BLOOD COUNT 6.1 10^3/uL (4.0-10.0)
[2024-07-08 19:44] LABS: ERYTHROCYTE SEDIMENTATION RATE 12 mm/hr (0-30)
[2024-07-08 19:50] LABS: C REACTIVE PROTEIN QUANTITATIV < 0.40 MG/DL (<1.0)
[2024-07-08 19:52] LABS: ALBUMIN 3.7 G/DL (3.2-5.2); ALKALINE PHOSPHATASE 64 U/L (46-116); ALT/SGPT 21 U/L (7.0-40); AST/SGOT 14 U/L (<34); BILIRUBIN,DIRECT 0.3 MG/DL (<0.4); BILIRUBIN,TOTAL 0.6 MG/DL (0.3-1.2); BLOOD UREA NITROGEN 17 MG/DL (9-23); CALCIUM LEVEL 10.1 MG/DL (8.3-10.6); CARBON DIOXIDE LEVEL 35 MMOL/L (20-31); CHLORIDE LEVEL 106 MMOL/L (98-107); CREATININE FOR GFR 1.38 MG/DL (0.55-1.30); GLOMERULAR FILTRATION RATE 40.8 (>45); GLUCOSE, FASTING 90 MG/DL (74-106); POTASSIUM SERUM 3.9 MMOL/L (3.5-5.1); SODIUM LEVEL 143 MMOL/L (136-145); TOTAL PROTEIN 6.3 G/DL (5.7-8.2)
== END ==
LOC: M CLY 13:35
PROVIDERS: ATTEND Nurse Practitioner
DX: R19.7 Diarrhea, unspecified (principal); R94.5 Abnormal results of liver function studies; E78.00 Pure hypercholesterolemia, unspecified; K59.00 Constipation, unspecified; E78.2 Mixed hyperlipidemia

== ENCOUNTER → 2024-08-08 | Outpatient (REF) | payer MEDICARE, OTHER ==
[~2024-08-08] MED LIST changes: +GABA-1172 PO; -GABA-282 PO
[2024-08-08 19:10] LABS: ALBUMIN 3.4 G/DL (3.2-5.2); BILIRUBIN,DIRECT 0.3 MG/DL (<0.4); BILIRUBIN,TOTAL 0.6 MG/DL (0.3-1.2)
== END ==
LOC: M LAB REF 16:50
PROVIDERS: ATTEND Internal Medicine Nephrology
DX: R94.5 Abnormal results of liver function studies (principal)

== ENCOUNTER → 2024-08-13 | Outpatient (REF) | payer MEDICARE, OTHER ==
[2024-08-13 18:55] LABS: BLOOD UREA NITROGEN 16 MG/DL (9-23); CALCIUM LEVEL 10.2 MG/DL (8.3-10.6); CARBON DIOXIDE LEVEL 33 MMOL/L (20-31); CHLORIDE LEVEL 105 MMOL/L (98-107); CREATININE FOR GFR 1.24 MG/DL (0.55-1.30); GLOMERULAR FILTRATION RATE 46.2 (>45); GLUCOSE, FASTING 120 MG/DL (74-106); POTASSIUM SERUM 4.4 MMOL/L (3.5-5.1); SODIUM LEVEL 137 MMOL/L (136-145)
== END ==
LOC: M LABDRAWC 17:10
PROVIDERS: ATTEND Internal Medicine Cardiovascular Disease
DX: I50.22 Chronic systolic (congestive) heart failure (principal); R06.02 Shortness of breath

== ENCOUNTER → 2024-08-20 | Outpatient (CLI) | payer MEDICARE, BC | LOC: M RAD 13:24 | PROVIDERS: ATTEND Internal Medicine Gastroenterology | DX: K59.00 Constipation, unspecified (principal) ==

== ENCOUNTER → 2024-09-15 | Outpatient (CLI) | payer MEDICARE, BC ==
[~2024-09-15] MED LIST changes: -CYCL5TAB PO; +CYCL5TAB4 PO
== END ==
LOC: M WHC 09:55
PROVIDERS: ATTEND Nurse Practitioner Family
DX: Z12.31 Encounter for screening mammogram for malignant neoplasm of breast (principal); R92.323 Mammographic fibroglandular density, bilateral breasts

== ENCOUNTER → 2024-10-27 | Outpatient (REF) | payer MEDICARE, BC | LOC: M LABDRAWC 16:55 | PROVIDERS: ATTEND Nurse Practitioner Family | DX: M81.0 Age-related osteoporosis without current pathological fracture (principal) ==

== ENCOUNTER → 2024-11-10 | Outpatient (REF) | payer MEDICARE, BC ==
[2024-11-10 14:16] LABS: CALCIUM LEVEL 9.7 MG/DL (8.3-10.6); CREATININE FOR GFR 1.23 MG/DL (0.55-1.30); GLOMERULAR FILTRATION RATE 46.6 (>45); POTASSIUM SERUM 4.5 MMOL/L (3.5-5.1)
== END ==
LOC: M LABDRAWC 13:11
PROVIDERS: ATTEND Internal Medicine Cardiovascular Disease
DX: I50.22 Chronic systolic (congestive) heart failure (principal)

== ENCOUNTER → 2024-11-14 | Outpatient (REF) | payer MEDICARE, BC ==
[2024-11-22 20:37] LABS: ACHR BINDING ANTIBODY < 0.30 nmol/L (<=0.30); ACHR BLOCKING AB < 15 (<15); ACHR MODULATING ANTIBODY < 1 (<32)
== END ==
LOC: M LABDRAWC 16:40
PROVIDERS: ATTEND Physician Assistant
DX: H53.2 Diplopia (principal)

== ENCOUNTER → 2024-12-01 | Outpatient (REF) | payer MEDICARE, BC ==
[2024-12-01 18:28] LABS: BASO # 0.1 10^3/uL (0.0-0.2); BASO % 1.1 % (0.0-1.0); EOS # 0.2 10^3/uL (0.0-0.5); EOS % 3.1 % (0.0-3.0); HEMATOCRIT 44.5 % (36.0-47.0); HEMOGLOBIN 14.5 g/dl (12.0-15.5); LYMPH # 1.3 10^3/uL (1.5-5.0); LYMPH % 19.5 % (24.0-44.0); MEAN CORPUSCULAR HEMOGLOBIN 30.4 pg (27.0-33.0); MEAN CORPUSCULAR HGB CONC 32.6 g/dl (32.0-36.5); MEAN CORPUSCULAR VOLUME 93.3 fl (80.0-96.0); MONO # 0.5 10^3/uL (0.0-0.8); MONO % 7.6 % (2.0-8.0); NEUTROPHILS # 4.4 10^3/uL (1.5-8.5); NEUTROPHILS % 68.5 % (36.0-66.0); PLATELET COUNT, AUTOMATED 244 10^3/uL (150-450); RED BLOOD COUNT 4.77 10^6/uL (4.00-5.40); WHITE BLOOD COUNT 6.5 10^3/uL (4.0-10.0)
[2024-12-01 18:39] LABS: ALBUMIN 3.7 G/DL (3.2-5.2); BILIRUBIN,TOTAL 0.6 MG/DL (0.3-1.2); CALCIUM LEVEL 9.7 MG/DL (8.3-10.6); CHOLESTEROL RISK RATIO 2.46 (<5); CREATININE FOR GFR 1.36 MG/DL (0.55-1.30); GLOMERULAR FILTRATION RATE 41.5 (>45); HDL CHOLESTEROL 55.2 MG/DL (>40); LDL CHOLESTEROL 67.8 MG/DL (<100); NON-HDL-C 80.8 MG/DL; PERCENT SATURATION 15.5 % (13.2-45.0); TOTAL PROTEIN 6.5 G/DL (5.7-8.2)
[2024-12-01 18:45] LABS: FERRITIN 76.5 NG/ML (7.3-270.7)
[2024-12-01 18:46] LABS: FREE T4 1.44 NG/DL (0.89-1.76); THYROID STIMULATING HORMONE 1.583 uIU/ML (0.55-4.78)
[2024-12-01 18:59] LABS: HEMOGLOBIN A1c 5.5 % (4.0-6.0)
== END ==
LOC: M SFHCCLAY 10:52
PROVIDERS: ATTEND Nurse Practitioner Family
DX: E11.22 Type 2 diabetes mellitus with diabetic chronic kidney disease (principal); G45.9 Transient cerebral ischemic attack, unspecified; I50.9 Heart failure, unspecified; I15.0 Renovascular hypertension; Z95.810 Presence of automatic (implantable) cardiac defibrillator; R42 Dizziness and giddiness; M16.12 Unilateral primary osteoarthritis, left hip; G40.909 Epilepsy, unspecified, not intractable, without status epilepticus; M54.40 Lumbago with sciatica, unspecified side; M23.242 Derangement of anterior horn of lateral meniscus due to old tear or injury, left knee

== ENCOUNTER 2024-12-05 20:52 | Emergency (ER) | payer MEDICARE, BC, OTHER ==
[~2024-12-05] VITALS: Ht 172.7 cm; Wt 71.0 kg
[2024-12-05 21:48] LABS: BASO # 0.1 10^3/uL (0.0-0.2); BASO % 0.8 % (0.0-1.0); EOS # 0.2 10^3/uL (0.0-0.5); EOS % 1.6 % (0.0-3.0); HEMATOCRIT 40.4 % (36.0-47.0); HEMOGLOBIN 13.4 g/dl (12.0-15.5); LYMPH # 1.3 10^3/uL (1.5-5.0); LYMPH % 10.4 % (24.0-44.0); MEAN CORPUSCULAR HEMOGLOBIN 30.6 pg (27.0-33.0); MEAN CORPUSCULAR HGB CONC 33.2 g/dl (32.0-36.5); MEAN CORPUSCULAR VOLUME 92.2 fl (80.0-96.0); MONO # 0.7 10^3/uL (0.0-0.8); MONO % 5.7 % (2.0-8.0); NEUTROPHILS # 10.3 10^3/uL (1.5-8.5); PLATELET COUNT, AUTOMATED 360 10^3/uL (150-450); RED BLOOD COUNT 4.38 10^6/uL (4.00-5.40); WHITE BLOOD COUNT 12.7 10^3/uL (4.0-10.0)
[2024-12-05] MEDS ORDERED: ISOVUE-370 76% 100ML VIAL As Ordered ONE (21:53)
[2024-12-05 22:00] LABS: INR 1.71; PROTHROMBIN TIME 20.3 SECONDS (12.5-14.5)
[2024-12-05 22:11] LABS: CALCIUM LEVEL 10.1 MG/DL (8.3-10.6); CREATININE FOR GFR 1.57 MG/DL (0.55-1.30); GLOMERULAR FILTRATION RATE 35.2 (>45); POTASSIUM SERUM 3.8 MMOL/L (3.5-5.1)
[2024-12-05 22:38] VITALS: TEMP 98
[2024-12-05 23:54] VITALS: BP 110/56; O2SAT 98
[2024-12-05] MEDS: BOOSTRIX VACCINE (TETANUS/DIPHTH/ACEL. PERTUSSIS) 0.5ML SYR IM.IMMUN ONE (23:54)
== END 2024-12-06 00:19 | disposition home or self-care (01) ==
LOC: EDBD 20:52 → M ED 20:52
DX: M25.561 Pain in right knee (principal); M25.562 Pain in left knee; Z96.652 Presence of left artificial knee joint; M85.861 Other specified disorders of bone density and structure, right lower leg; M17.11 Unilateral primary osteoarthritis, right knee; W00.0XXA Fall on same level due to ice and snow, initial encounter; Y92.008 Other place in unspecified non-institutional (private) residence as the place of occurrence of the external cause; Y93.H1 Activity, digging, shoveling and raking; Y99.9 Unspecified external cause status; I48.91 Unspecified atrial fibrillation; I50.9 Heart failure, unspecified; I25.2 Old myocardial infarction; E11.9 Type 2 diabetes mellitus without complications; N18.30 Chronic kidney disease, stage 3 unspecified; R91.1 Solitary pulmonary nodule; R56.9 Unspecified convulsions; F32.A Depression, unspecified; F41.9 Anxiety disorder, unspecified; Z86.73 Personal history of transient ischemic attack (TIA), and cerebral infarction without residual deficits; Z87.891 Personal history of nicotine dependence; M47.816 Spondylosis without myelopathy or radiculopathy, lumbar region; M47.812 Spondylosis without myelopathy or radiculopathy, cervical region; Z79.4 Long term (current) use of insulin; Z79.82 Long term (current) use of aspirin; Z79.01 Long term (current) use of anticoagulants; Z79.899 Other long term (current) drug therapy; Z88.2 Allergy status to sulfonamides; Z88.1 Allergy status to other antibiotic agents; Z88.8 Allergy status to other drugs, medicaments and biological substances; Z91.89 Other specified personal risk factors, not elsewhere classified
CPT/HCPCS: 70450; 71260; 72125; 72128; 72131; 73564; 74177; 80047; 80048; 85025; 85610; 85730; 90471; 90715; 93041; 94760; 99284; Q9967

== ENCOUNTER → 2025-06-12 | Outpatient (REF) | payer MEDICARE, BC, OTHER ==
[~2025-06-12] MED LIST changes: +CEFD300CAP PO; +DENO60SY2 SC; +DULA3PEN SQ; -ESSE250T PO; +LAMO200T3 PO; +LIDO1PAD TOP; +LIDO5TD TD; +LUBI24CA32 PO; +MAGN250T17 PO; +MIDO5TA PO; -PROL60SO SC
[2025-06-12 13:30] LABS: CALCIUM LEVEL 10.8 MG/DL (8.3-10.6); CARBON DIOXIDE LEVEL 32.0 MMOL/L (20-31); CHLORIDE LEVEL 101.0 MMOL/L (98-107); CREATININE FOR GFR 1.35 MG/DL (0.55-1.30); GLOMERULAR FILTRATION RATE 43.6 (>45); POTASSIUM SERUM 4.5 MMOL/L (3.5-5.1); SODIUM LEVEL 142.0 MMOL/L (136-145)
== END ==
LOC: M LABDRAWC 12:03
PROVIDERS: ATTEND Nurse Practitioner Family
DX: M81.0 Age-related osteoporosis without current pathological fracture (principal)

== ENCOUNTER 2025-06-17 14:24 | Inpatient (IN) | payer MEDICARE, BC ==
[~2025-06-17] VITALS: Ht 175.3 cm; Wt 65.5 kg
[2025-06-17 14:56] LABS: BASO # 0.1 10^3/uL (0.0-0.2); BASO % 0.9 % (0.0-1.0); EOS # 0.3 10^3/uL (0.0-0.5); EOS % 3.9 % (0.0-3.0); LYMPH # 1.6 10^3/uL (1.5-5.0); LYMPH % 20.4 % (24.0-44.0); MONO # 0.5 10^3/uL (0.0-0.8); MONO % 6.6 % (2.0-8.0); NEUTROPHILS # 5.3 10^3/uL (1.5-8.5); NEUTROPHILS % 67.9 % (36.0-66.0); PLATELET COUNT, AUTOMATED 311 10^3/uL (150-450)
[2025-06-17 15:15] LABS: INR 2.03
[2025-06-17 15:32] LABS: ETHYL ALCOHOL (ETHANOL) < 0.003 % (0.000-0.010)
[2025-06-17 15:34] LABS: SALICYLATE LEVEL < 3.0 MG/DL (<30)
[2025-06-17 15:38] LABS: ALT/SGPT 22 U/L (7.0-40); AST/SGOT 38 U/L (<34)
[2025-06-17] MEDS ORDERED: ROSU10TA61 PO (15:52)
[2025-06-17] MEDS ORDERED: MAGN250T9 PO (15:52)
[2025-06-17] MEDS ORDERED: MIDO10TA3 PO (15:52)
[2025-06-17] MEDS ORDERED: HOME MED LIST COMPLETE! XX SCH (15:55)
[2025-06-17 16:26] LABS: KETONE, URINE AUTO RFX NEGATIVE (NEGATIVE); LEUKOCYTE ESTERASE UR AUTO RFX NEGATIVE (NEGATIVE); NITRITE, URINE AUTO RFX NEGATIVE (NEGATIVE); RBC, URINE AUTO RFX 0 /HPF (0-3); SQUAM EPITHELIAL CELL UR AURFX 0 /HPF (0-6); WBC, URINE AUTO RFX 0 /HPF (0-3)
[2025-06-17 16:57] LABS: AMPHETAMINES LEVEL URINE NEGATIVE (NEGATIVE); BARBITURATES URINE NEGATIVE (NEGATIVE); CANNABINOIDS URINE NEGATIVE (NEGATIVE); COCAINE METABOLITE URINE NEGATIVE (NEGATIVE); METHADONE URINE NEGATIVE (NEGATIVE); OPIATES URINE NEGATIVE (NEGATIVE); PHENCYCLIDINE URINE NEGATIVE (NEGATIVE)
[2025-06-17 16:58] LABS: BENZODIAZEPINES URINE POSITIVE (NEGATIVE)
[2025-06-17] MEDS ORDERED: FUROSEMIDE 20 MG TAB PO PRN (18:05)
[2025-06-17] MEDS ORDERED: MOM 30 ML SUSPENSION UDC PO PRN (18:05)
[2025-06-17] MEDS ORDERED: MAALOX 30 ML SUSP *UDC PO PRN (18:05)
[2025-06-17] MEDS ORDERED: ALPRAZolam 0.5 MG TAB PO PRN (18:05)
[2025-06-17] MEDS ORDERED: ACETAMINOPHEN 325 MG TAB PO PRN (18:05)
[2025-06-17] MEDS: GABAPENTIN 100 MG CAP PO SCH (21:01)
[2025-06-17] MEDS: ROSUVASTATIN 10 MG TAB PO SCH (21:01)
[2025-06-17] MEDS: lamoTRIgine 100 MG TAB PO SCH (21:01)
[2025-06-17 23:50] VITALS: BP 140/77; TEMP 98.6; O2SAT 97
[2025-06-17 23:55] VITALS: BP 140/77; TEMP 97; O2SAT 97
[2025-06-18] MEDS: traZODone 50 MG TAB PO PRN (01:21)
[2025-06-18 06:41] VITALS: BP 145/67; TEMP 97.4; O2SAT 97
[2025-06-18] MEDS: MIDODRINE 5 MG TAB PO SCH (08:00)
[2025-06-18 08:38] VITALS: BP 133/67
[2025-06-18] MEDS: OMEGA-3 1000 MG CAPSULE PO SCH (08:42)
[2025-06-18 08:43] VITALS: BP 133/67
[2025-06-18] MEDS: DAPAGLIFLOZIN PROPANEDIOL 10 MG TABLET PO SCH (08:43)
[2025-06-18] MEDS: BISOPROLOL FUM 2.5 MG PER 1/2 TAB PO SCH (08:43)
[2025-06-18] MEDS: RIVAROXABAN 20MG TAB PO SCH (08:43)
[2025-06-18] MEDS: VITAMIN D 1,000 INTERNATIONAL UNITS TABLET PO SCH (08:43)
[2025-06-18] MEDS: CALCITRIOL 0.25 MCG CAP (S0169) PO SCH (08:43)
== END 2025-06-18 11:19 | disposition home or self-care (01) | DRG 881 ==
LOC: M ED 14:24 → EDBD 14:24 → M ED INP 18:01 → M PSY 23:42
PROVIDERS: ADMIT Student in an Organized Health Care Education/Training Program; ATTEND Student in an Organized Health Care Education/Training Program
DX: F32.A Depression, unspecified (principal); R45.851 Suicidal ideations; I50.32 Chronic diastolic (congestive) heart failure; I13.0 Hypertensive heart and chronic kidney disease with heart failure and stage 1 through stage 4 chronic kidney disease, or unspecified chronic kidney disease; F41.9 Anxiety disorder, unspecified; E11.51 Type 2 diabetes mellitus with diabetic peripheral angiopathy without gangrene; N18.30 Chronic kidney disease, stage 3 unspecified; I25.10 Atherosclerotic heart disease of native coronary artery without angina pectoris; Z95.2 Presence of prosthetic heart valve; I48.91 Unspecified atrial fibrillation; Z86.73 Personal history of transient ischemic attack (TIA), and cerebral infarction without residual deficits; Z79.01 Long term (current) use of anticoagulants; I25.5 Ischemic cardiomyopathy; Z60.4 Social exclusion and rejection; Z88.2 Allergy status to sulfonamides; Z88.8 Allergy status to other drugs, medicaments and biological substances; Z79.899 Other long term (current) drug therapy; E78.5 Hyperlipidemia, unspecified; M79.7 Fibromyalgia; I25.2 Old myocardial infarction; I95.1 Orthostatic hypotension; Z95.0 Presence of cardiac pacemaker; G43.909 Migraine, unspecified, not intractable, without status migrainosus; R91.1 Solitary pulmonary nodule; H40.9 Unspecified glaucoma; G89.29 Other chronic pain; M81.0 Age-related osteoporosis without current pathological fracture; R29.6 Repeated falls; R26.89 Other abnormalities of gait and mobility; Z96.642 Presence of left artificial hip joint; Z98.41 Cataract extraction status, right eye; Z98.42 Cataract extraction status, left eye

== ENCOUNTER 2025-07-08 12:41 | Day surgery (SDC) | payer MEDICARE, BC ==
[~2025-07-08] VITALS: Ht 175.3 cm; Wt 66.7 kg
[~2025-07-08 12:41] MED LIST changes: +CIPROFLOXACIN 0.3% OPHTH OINTMENT As Ordered ONE; +MAGN250T9 PO; +MIDAZOLAM INJ 2 MG/2 ML VIAL As Ordered ONE; +MIDO10TA3 PO
[2025-07-08] MEDS: LIDOCAINE 3.5% 1 ML OPHTH TOPICAL GEL OU ONE (13:59)
[2025-07-08] MEDS: POVIDONE-IODINE 5% OPHTH PREP SOL 30ML As Ordered ONE (14:39)
[2025-07-08] MEDS: LIDOCAINE 2% W/EPINEPHrine 20 ML VIAL **PRES FREE As Ordered ONE (14:55)
[2025-07-08 15:28] VITALS: BP 135/63; TEMP 97.5; O2SAT 99
== END 2025-07-08 15:55 | disposition home or self-care (01) ==
LOC: M SDC 12:41
PROVIDERS: ATTEND Ophthalmology
DX: H57.812 Brow ptosis, left (principal); I48.91 Unspecified atrial fibrillation; E11.9 Type 2 diabetes mellitus without complications; I10 Essential (primary) hypertension; R56.9 Unspecified convulsions; E78.00 Pure hypercholesterolemia, unspecified; I25.2 Old myocardial infarction; I25.10 Atherosclerotic heart disease of native coronary artery without angina pectoris; Z79.01 Long term (current) use of anticoagulants; Z79.899 Other long term (current) drug therapy; Z79.85 Long-term (current) use of injectable non-insulin antidiabetic drugs; Z95.5 Presence of coronary angioplasty implant and graft; Z95.810 Presence of automatic (implantable) cardiac defibrillator; Z88.1 Allergy status to other antibiotic agents; Z88.8 Allergy status to other drugs, medicaments and biological substances; Z88.2 Allergy status to sulfonamides; Z86.73 Personal history of transient ischemic attack (TIA), and cerebral infarction without residual deficits
CPT/HCPCS: 67901; 88300; J2250; J3010

== ENCOUNTER → 2025-07-23 | Outpatient (CLI) | payer MEDICARE, BC ==
[~2025-07-23] MED LIST changes: -CIPROFLOXACIN 0.3% OPHTH OINTMENT As Ordered ONE; -MIDAZOLAM INJ 2 MG/2 ML VIAL As Ordered ONE
== END ==
LOC: M WHC 09:18
PROVIDERS: ATTEND Nurse Practitioner Family
DX: M81.0 Age-related osteoporosis without current pathological fracture (principal); M85.89 Other specified disorders of bone density and structure, multiple sites

== ENCOUNTER → 2025-08-07 | Outpatient (REF) | payer MEDICARE, OTHER | LOC: M LABDRAWC 10:52 | PROVIDERS: ATTEND Internal Medicine Cardiovascular Disease | DX: I50.22 Chronic systolic (congestive) heart failure (principal) ==